=== PATIENT | male | born 1940 | race Caucasian/White ===

== ENCOUNTER 2016-11-26 20:06 | Emergency (ER) | payer BC, MEDICARE ==
[2016-11-26] MEDS ORDERED: Ketorolac 30 MG/ML SDV IVPUSH ONE (21:17)
[2016-11-26] MEDS ORDERED: Sodium Chloride 0.9% 1,000 ML IV ONE (21:17)
[2016-11-26 21:21] LABS: CHLORIDE,CL 110 mmol/L (98-110); SODIUM,NA 142 mmol/L (136-146)
--- NOTE | 2016-11-26 21:54 | EDM.PDOC ---
ED HPI GENERAL MEDICAL PROBLEM - General Source of Information: Reports: Patient History Limitations: Reports: No Limitations face Pain Score (Numeric/FACES): 4 - General Chief Complaint: Trauma Stated Complaint: FELL Time Seen by Provider: 11/26/16 20:10 - History of Present Illness INITIAL COMMENTS - FREE TEXT/NARRATIVE: History of present illness: [A 76-year-old male presenting with acute trauma. Patient had a mechanical fall and subsequently hit his face on the ground sliding] Review of systems: As per history of present illness and below otherwise all systems reviewed and negative. Past medical history: As per history of present illness and as reviewed below otherwise noncontributory. Surgical history: As per history of present illness and as reviewed below otherwise noncontributory. Social history: No reported history of drug or alcohol abuse. Family history: As per history of present illness and as reviewed below otherwise noncontributory. Physical exam: HEENT: normocephalic, pupils reactive, negative for conjunctival pallor or scleral icterus, mucous membranes moist, throat clear, neck supple, nontender, trachea midline. Lungs: Clear to auscultation, breath sounds equal bilaterally, chest nontender. Heart: S1S2, regular, negative for clicks, rubs, or JVD. Abdomen: Soft, nondistended, nontender. Negative for masses or hepatosplenomegaly. Negative for costovertebral tenderness. Pelvis: Stable nontender. Genitourinary: Deferred. Rectal: Deferred. Extremities: Atraumatic, negative for cords or calf pain. Neurovascular unremarkable. Neuro: Awake, alert, oriented. Cranial nerves II through XII unremarkable. Cerebellum unremarkable. Motor and sensory unremarkable throughout. Exam nonfocal. Face without bony deformity, EOMs intact. Skin torn under the left eye, in the left brow bone area ,and a skin tear to the left forearm. With the poor integrity of the skin and part of the integument missing applied Steri-Strips to approximate edges and Vaseline over any open areas. We'll refer to plastics Diagnostics: [CT of head, facial bones] Therapeutics: [Toradol 60 mg] Impression: [Multiple contusions] Plan: [Follow-up with Dr. Daen,] Definitive disposition and diagnosis as appropriate pending reevaluation and review of above. (Anselmo Mejia) This is Dr. Salas dictating an addendum note is the supervising physician on this case. I personally seen and examined this patient myself. Agree with history and physical as above and he states to me that he tripped over a cord falling forward only his own height. She did not pass out or blackout and has no head neck or back pain no neurosensory changes no weakness and no truncal trauma or pain. Prior to these events he was in his usual state of good health and was doing some work when this happened. On my facial examination may agree that there is no palpable bony deformities of the orbitmaxilla mandible zygoma and the bite is intact. EOMs are intact, visual acuity is grossly intact bilaterally her visual acuity card done by the nurse practitioner. There are multiple areas of skin injuries as described above. On his forearms hands and face that he has very fragile skin and he personally states that his skin tears and ribs very easily. There is no blood in the nares and no tooth trauma. There is no excessive amount of swelling to the soft tissues specifically around the left forehead left orbit and zygoma. The patient states that palpation of these bony areas there is no gross tenderness. There are no midline step-off surface defects of the cervical spine. CT scan of the head age-related changes but no acute injuries there was no gross fracture noted on the x-rays of the face. Advised the patient to follow-up with our plastics department for further care and evaluation and we have treated the wound symptomatically as for the repair of them with the fragility of the skin will be impossible. Patient is aware of our concerns and is comfortable with this care plan. Patient is currently taking no anticoagulation except a baby aspirin once a day. (Radha Salas) - Related Data Allergies Allergy/AdvReac Type Severity Reaction Status Date / Time No Known Allergies Allergy Verified 11/26/16 20:14 Home Meds: Home Meds Aspirin 81 mg PO DAILY 11/26/16 [History] Metoprolol Succinate 200 mg PO DAILY 11/26/16 [History] Past Medical History - Past Health History Medical/Surgical History: Denies Medical/Surgical History HEENT History: Reports: Impaired Vision Other HEENT History: wears glasses Cardiovascular History: Reports: Afib, Hypertension - Past Surgical History Musculoskeletal Surgical History: Reports: Hip Replacement Social & Family History - Family History Family Medical History: Noncontributory - Tobacco Use Smoking Status *Q: Never Smoker - Recreational Drug Use Recreational Drug Use: No Review of Systems - Review of Systems Review Of Systems: See Below (See history of present illness) ED EXAM, GENERAL - Physical Exam Exam: See Below (See history of present illness) Departure - Departure Time of Disposition: 22:52 Condition: Good - Departure Disposition: Home, Self-Care 01 Clinical Impression: Contusion of face - Discharge Information Instructions: Facial or Scalp Contusion, [id number] Referrals: PCP,None [Primary Care Provider] - Forms: ED Department Discharge Additional Instructions: The following information is given to patients seen in the emergency department who are being discharged to home. This information is to outline your options for follow-up care. We provide all patients seen in our emergency department with a follow-up referral. The need for follow-up, as well as the timing and circumstances, are variable depending upon the specifics of your emergency department visit. If you don't have a primary care physician on staff, we will provide you with a referral. We always advise you to contact your personal physician following an emergency department visit to inform them of the circumstance of the visit and for follow-up with them and/or the need for any referrals to a consulting specialist. The emergency department will also refer you to a specialist when appropriate. This referral assures that you have the opportunity for follow-up care with a specialist. All of these measure are taken in an effort to provide you with optimal care, which includes your follow-up. Under all circumstances we always encourage you to contact your private physician who remains a resource for coordinating your care. When calling for follow-up care, please make the office aware that this follow-up is from your recent emergency room visit. If for any reason you are refused follow-up, please contact the [facility] Emergency Department at and asked to speak to the emergency department charge nurse. Follow-up with the plastic surgeon as discussed Sleep with the head of your bed elevated if this requires you to use several pillows to prop herself up this would benefit you with the swelling in your face Follow-up with her primary care provider in 1-2 days Return to ED as needed as discussed [facility] - [facility] Professional [facility] [address] [place] [address], [address] [place] [address]
[2016-11-27 00:18] VITALS: BP 172/96
--- NOTE | 2016-11-28 13:13 | CT ---
EXAM DATE: 11/26/16 PATIENT'S AGE: 76 Patient: KATHARINA BRAR Facility: [place], [place] Site . Site : 1940 Study: CT Head WO CONT [id number] 9:41:45 PM Ordering Physician: Doctor Tian Final Report: Indication: Fall with laceration. Technique: Contiguous axial images were obtained from the skullbase through the vertex with 3 mm collimation. 3D rendering, including image post processing was performed on an independent workstation. Comparison: None. Findings: Soft tissue swelling with a small defect is noted overlying the left orbit. There is no underlying skull fracture. The ventricles are midline, symmetric, and are of normal size shape and contour. There is no intracranial hemorrhage. There is no mass on this unenhanced CT scan. Focal encephalomalacia of this noted in the right frontal lobe. There is preservation of the lowery/white matter junction and no masses identified on this unenhanced CT scan. Periventricular low-density white matter changes most likely reflecting chronic small vessel ischemic disease. Small air-fluid level is noted in the left maxillary sinus. The remaining visualized paranasal sinuses and mastoid air cells are normally aerated. Impression: 1. No acute intracranial abnormality. 2. Age related changes. Please note that all CT scans at this facility use dose modulation, iterative reconstruction, and/or weight-based dosing when appropriate to reduce radiation dose to as low as reasonably achievable. Dictated by Natalya Talamantes MD @ Nov 26 2016 9:46PM (Electronic Signature) Report Signed by Proxy. MIKHAIL
--- NOTE | 2016-11-28 13:16 | CR ---
EXAM DATE: 11/26/16 PATIENT'S AGE: 76 Patient: KATHARINA BRAR Facility: [place], [place] Site . Site : 1940 Study: XRay Facial [id number]/17/2017 10:00:09 PM Ordering Physician: Doctor Tian Final Report: Indication: Fall Technique: Four views of the facial bones Comparison: None available Findings: No gross displaced fracture identified. A small air-fluid level in the left maxillary sinus. The orbital rims appear grossly intact. No discrete soft tissue abnormality seen. Impression: A displaced fracture is not seen, however there is a left maxillary sinus air- fluid level. Correlation with facial bone CT should be considered for further evaluation. Dictated by Yuri Ross MD @ 11/26/2016 10:32:08 PM Dictated by: Yuri Ross MD @ 11/26/2016 22:32:15 (Electronic Signature) Report Signed by Proxy. MIKHAIL
== END 2016-11-26 23:15 | disposition home or self-care (01) ==
LOC: MW.ED 20:06
DX: S51.812A Laceration without foreign body of left forearm, initial encounter (principal); S00.83XA Contusion of other part of head, initial encounter; I48.91 Unspecified atrial fibrillation; I10 Essential (primary) hypertension; Z96.649 Presence of unspecified artificial hip joint; Z79.82 Long term (current) use of aspirin; W01.198A Fall on same level from slipping, tripping and stumbling with subsequent striking against other object, initial encounter
CPT/HCPCS: 36415; 70150; 70450; 80053; 85025; 85610; 96361; 96374; 99284; J1885; J7040

== ENCOUNTER 2016-11-28 14:16 | Emergency (ER) | payer MEDICARE ==
[2016-11-28] MEDS ORDERED: Proparacaine 0.5% Ophth Soln 15 ML Bottle EYELF ONE (15:25)
--- NOTE | 2016-11-28 16:05 | EDM.PDOC ---
<Anselmo Mejia - Last Filed: 11/28/16 17:55> ED HPI GENERAL MEDICAL PROBLEM - General Chief Complaint: Eye Problems Stated Complaint: PAIN ON LEFT SIDE OF FACE Time Seen by Provider: 11/28/16 15:55 Source of Information: Reports: Patient History Limitations: Reports: No Limitations - History of Present Illness INITIAL COMMENTS - FREE TEXT/NARRATIVE: History of present illness: [76 year old male returning now status post trip and fall. Patient was seen here by myself and treated and now returns subsequently with eye pain. Patient indicates it feels like there is pressure and something in his eye and he would like to be evaluated.] Review of systems: As per history of present illness and below otherwise all systems reviewed and negative. Past medical history: As per history of present illness and as reviewed below otherwise noncontributory. Surgical history: As per history of present illness and as reviewed below otherwise noncontributory. Social history: No reported history of drug or alcohol abuse. Family history: As per history of present illness and as reviewed below otherwise noncontributory. Physical exam: HEENT: Bruising and slow healing abrasion with skin tears to left side of face, normocephalic, pupils reactive, negative for conjunctival pallor or scleral icterus erythema and blood in, mucous membranes moist, throat clear, neck supple , nontender, trachea midline. Lungs: Clear to auscultation, breath sounds equal bilaterally, chest nontender. Heart: S1S2, regular, negative for clicks, rubs, or JVD. Abdomen: Soft, nondistended, nontender. Negative for masses or hepatosplenomegaly. Negative for costovertebral tenderness. Pelvis: Stable nontender. Genitourinary: Deferred. Rectal: Deferred. Extremities: Atraumatic, negative for cords or calf pain. Neurovascular unremarkable. Neuro: Awake, alert, oriented. Cranial nerves II through XII unremarkable. Cerebellum unremarkable. Motor and sensory unremarkable throughout. Exam nonfocal. Visual acuity performed with the results of 20/50 bilaterally which is consistent with the eye exam on the night of the incident. Ophthalmology called and consulted Dr. Flores who indicated with patients to stable vision it would be acceptable to have him seen first thing tomorrow have the patient come in at 0830 on 11/29/2016. Stable maxillary wall fracture with out exophthalmos and EOM's intact. Diagnostics: [Flourescene, Mendez lamp, CT of maxillofacial bones, visual acuity] Therapeutics: [Procainamide, ] Impression: [Sinusitis] Plan: [Anabiotic pain med] Definitive disposition and diagnosis as appropriate pending reevaluation and review of above. Left Eye Pain Score (Numeric/FACES): 4 - Related Data Allergies Allergy/AdvReac Type Severity Reaction Status Date / Time No Known Allergies Allergy Verified 11/28/16 14:57 Home Meds: Home Meds Aspirin 81 mg PO DAILY 11/26/16 [History] Metoprolol Succinate 200 mg PO DAILY 11/26/16 [History] Amoxicillin/Potassium Clav [Augmentin 875-125 Tablet] 1 each PO BID #20 tablet 11/28/16 [Rx] Past Medical History - Past Health History Medical/Surgical History: Denies Medical/Surgical History HEENT History: Reports: Impaired Vision Other HEENT History: wears glasses Cardiovascular History: Reports: Afib, Hypertension - Past Surgical History Musculoskeletal Surgical History: Reports: Hip Replacement Social & Family History - Family History Family Medical History: Noncontributory - Tobacco Use Smoking Status *Q: Never Smoker Second Hand Smoke Exposure: No - Caffeine Use Caffeine Use: Reports: None - Alcohol Use Days Per Week of Alcohol Use: 7 Number of Drinks Per Day: 2 Total Drinks Per Week: 14 - Recreational Drug Use Recreational Drug Use: No ED ROS GENERAL - Review of Systems Review Of Systems: See Below (History of present illness) ED EXAM GENERAL W FULL EYE - Physical Exam Exam: See Below (See history of present illness) Course - Vital Signs Last Recorded V/S: Last Vital Signs Temp 97.1 C H 11/28/16 14:51 Pulse 80 11/28/16 18:14 Resp 16 11/28/16 18:14 BP 173/106 H 11/28/16 18:14 Pulse Ox 98 11/28/16 18:14 - Orders/Labs/Meds Orders: Active Orders 24 hr Category Date Time Status Communication Order [RC] STAT Care 11/28/16 15:14 Active Max Facial Sinus wo Cont [CT] Stat Exams 11/28/16 16:17 Taken Meds: Medications Discontinued Medications Generic Name Dose Route Start Last Admin Trade Name Freq PRN Reason Stop Dose Admin Ketorolac Tromethamine 60 mg 11/28/16 16:30 11/28/16 17:40 Toradol IM 11/28/16 16:31 60 mg ONETIME ONE Administration Proparacaine HCl 1 ml 11/28/16 15:25 11/28/16 16:03 Proparacaine 0.5% Ana Solano EYELF 11/28/16 15:26 3 drop ONETIME ONE Administration Departure - Departure Time of Disposition: 17:55 Disposition: Home, Self-Care 01 Condition: Good Clinical Impression: Contusion of face, Pain, eye, left - Discharge Information Prescriptions: Amoxicillin/Potassium Clav [Augmentin 875-125 Tablet] 1 each PO BID #20 tablet Instructions: Eye Contusion, [id number] Referrals: PCP,Unknown [Primary Care Provider] - Forms: ED Department Discharge Additional Instructions: The following information is given to patients seen in the emergency department who are being discharged to home. This information is to outline your options for follow-up care. We provide all patients seen in our emergency department with a follow-up referral. The need for follow-up, as well as the timing and circumstances, are variable depending upon the specifics of your emergency department visit. If you don't have a primary care physician on staff, we will provide you with a referral. We always advise you to contact your personal physician following an emergency department visit to inform them of the circumstance of the visit and for follow-up with them and/or the need for any referrals to a consulting specialist. The emergency department will also refer you to a specialist when appropriate. This referral assures that you have the opportunity for follow-up care with a specialist. All of these measure are taken in an effort to provide you with optimal care, which includes your follow-up. Under all circumstances we always encourage you to contact your private physician who remains a resource for coordinating your care. When calling for follow-up care, please make the office aware that this follow-up is from your recent emergency room visit. If for any reason you are refused follow-up, please contact the [facility] Emergency Department at and asked to speak to the emergency department charge nurse. You have a follow-up appointment with up with ophthalmology tomorrow morning at 8:30 it is at the building their phone number is [phone] You also have a follow-up with Dr. Dean as previously discussed Please take the antibiotics as directed You have been provided with pain med please take as directed Return to ED as needed as discussed - My Orders Last 24 Hours: My Active Orders 11/28/16 15:14 Communication Order [RC] STAT - Assessment/Plan Last 24 Hours: My Active Orders 11/28/16 15:14 Communication Order [RC] STAT <Radha Salas Ame - Last Filed: 11/28/16 18:34> ED HPI GENERAL MEDICAL PROBLEM - History of Present Illness INITIAL COMMENTS - FREE TEXT/NARRATIVE: Please note that on fluoroscopy seen stain in his practitioner just saw diffuse uptake but no focal area and no foreign body. There was some much scleral injection the exam was difficult and the electric installer was aware of this. He will see the patient tomorrow. The patient has a scheduled appointment with plastic surgery this morning. Please add to impression: History of blunt facial trauma with left maxillary fracture and sinusitis/left eye pain
[2016-11-28] MEDS ORDERED: Ketorolac 60 MG/2 ML SDV IM ONE (16:30)
[2016-11-28 18:15] VITALS: BP 173/106
--- NOTE | 2016-11-29 07:50 | CT ---
EXAM DATE: 11/28/16 PATIENT'S AGE: 76 Patient: KATHARINA BRAR Facility: [place], [place] Site . Site : 1940 Study: CT Facial [id number]/2017 5:03:33 PM Ordering Physician: Doctor Tian Final Report: INDICATION: trauma Technique: Unenhanced maxillofacial CT with reformatted coronals and sagittal images. Comparison: Head CT 11/28/2016 Findings: The bone mineralization is unremarkable. Subtle left posterolateral maxillary wall fracture with resolved air-fluid level and adjacent subcutaneous emphysema when compared to previous examination. Persistent left supraorbital soft tissue hematoma/laceration. The paranasal sinuses and mastoid air cells are clear. The osteomeatal units are patent. The temporomandibular joints are unremarkable bilaterally. The globes and orbits are unremarkable. The imaged soft tissues and intracranial contents are grossly unremarkable. Impression: Subtle left posterolateral maxillary wall fracture with resolved air-fluid level and adjacent subcutaneous emphysema when compared to previous examination. Persistent left supraorbital soft tissue hematoma/laceration.. Dictated by: Ezequiel España MD @ 11/28/2016 17:39:55 (Electronic Signature) Report Signed by Proxy. MIKHAIL
== END 2016-11-28 18:10 | disposition home or self-care (01) ==
LOC: MW.ED 14:16
DX: S02.40DA Maxillary fracture, left side, initial encounter for closed fracture (principal); S00.83XA Contusion of other part of head, initial encounter; H57.12 Ocular pain, left eye; J32.9 Chronic sinusitis, unspecified; I10 Essential (primary) hypertension; I48.91 Unspecified atrial fibrillation; Z96.649 Presence of unspecified artificial hip joint; Z79.82 Long term (current) use of aspirin; Z79.899 Other long term (current) drug therapy; W01.0XXA Fall on same level from slipping, tripping and stumbling without subsequent striking against object, initial encounter
CPT/HCPCS: 70486; 96372; 99284; J1885

== ENCOUNTER 2017-07-11 13:43 | Observation (INO) | payer MEDICARE ==
--- NOTE | 2017-07-11 14:07 | EDM.PDOC ---
ED HPI GENERAL MEDICAL PROBLEM - General Chief Complaint: Respiratory Problem Stated Complaint: SHAKING Time Seen by Provider: 07/11/17 14:05 Source of Information: Reports: Patient, Family History Limitations: Reports: No Limitations - History of Present Illness INITIAL COMMENTS - FREE TEXT/NARRATIVE: HISTORY AND PHYSICAL: []76-year-old male presenting with chills shaking for the last 2 hours History of Present Illness: []Notable his girlfriend last week had the flu Patient has history of having bypass surgery Atrial fibrillation Fall with injury to his forehead 1 year ago Review of Systems: As per history of present illness and below otherwise all systems reviewed and negative. Past medical history: As per history of present illness and as reviewed below otherwise noncontributory. Surgical history: As per history of present illness and as reviewed below otherwise noncontributory. Social history: No reported history of drug or alcohol abuse. Family history: As per history of present illness and as reviewed below otherwise noncontributory. Physical exam: Alert and oriented male who looks appropriate. Speaking in full sentences no shortness breath noted. Mild tremors present HEENT: Atraumatic, normocehpalic, pupils reactive, negative for conjunctival pallor or scleral icterus, mucous membranes moist, throat clear, neck supple, nontender, trachea midline. Lungs: Clear to auscultation, breath sounds equal bilaterally, chest non tender. Heart: S1S2, regular, negative for clicks, rubs, or JVD. Abdomen: Soft, nondistended, nontender. Negative for masses or hepatossplenmegaly. Negative for costovertebral tenderness. Pelvis: Stable nontender. Genitourinary: Deferred. Rectal: Deferred Extremities: Atraumatic, negative for cords or calf pain. Hand grasp grossly intact ,no drift is noted Neurovascular unremarkable. Neuro: Awake, alert, oriented. Cranial nerves II through XII unremarkable. Cerebellum unremarkable. Motor and sensory unremarkable throughout. Exam nonfocal. After discussion of negative results from labs and x-rays son has discussed some concern that the patient has been losing his memory more often He has complained of having a headache this morning when he was being picked up. Patient had significant weakness and tremors where he could not walk Patient has been weak. Diagnostics: []CBC CMP influenza Therapeutics: [] Impression: [Rule out TIA Tremors Weakness] Plan: [Refer for observation on telemetry] Definitive disposition and diagnosis as appropriate pending reevaluation and review of above. Onset: Today, Sudden Duration: Hour(s): (2) Location: Reports: Generalized Quality: Reports: Ache Severity: Moderate Improves with: Reports: None Worsens with: Reports: None Generalized Pain Score (Numeric/FACES): 6 - Related Data Allergies Allergy/AdvReac Type Severity Reaction Status Date / Time No Known Allergies Allergy Verified 11/28/16 14:57 Home Meds: Home Meds Aspirin 81 mg PO DAILY 11/26/16 [History] Metoprolol Succinate 200 mg PO DAILY 11/26/16 [History] Amoxicillin/Potassium Clav [Augmentin 875-125 Tablet] 1 each PO BID #20 tablet 11/28/16 [Rx] Past Medical History - Past Health History Medical/Surgical History: Denies Medical/Surgical History HEENT History: Reports: Impaired Vision Other HEENT History: wears glasses Cardiovascular History: Reports: Afib, Hypertension - Past Surgical History Musculoskeletal Surgical History: Reports: Hip Replacement Social & Family History - Family History Family Medical History: Noncontributory - Tobacco Use Smoking Status *Q: Never Smoker Second Hand Smoke Exposure: No - Caffeine Use Caffeine Use: Reports: None - Alcohol Use Days Per Week of Alcohol Use: 7 Number of Drinks Per Day: 2 Total Drinks Per Week: 14 - Recreational Drug Use Recreational Drug Use: No ED ROS GENERAL - Review of Systems Review Of Systems: ROS reveals no pertinent complaints other than HPI. ED EXAM, GENERAL - Physical Exam Exam: See Below (see dictation) Course - Vital Signs Last Recorded V/S: Last Vital Signs Temp 37.8 C 07/11/17 14:04 Pulse 98 07/11/17 15:06 Resp 20 07/11/17 15:06 BP 152/72 H 07/11/17 15:06 Pulse Ox 95 07/11/17 15:42 - Orders/Labs/Meds Orders: Active Orders 24 hr Category Date Time Status Patient Status [ADT] Stat ADT 07/11/17 16:04 Ordered Sodium Chloride 0.9% [Saline Flush] Med 07/11/17 16:03 Ordered 10 ml FLUSH ASDIRECTED PRN Sodium Chloride 0.9% [Saline Flush] Med 07/11/17 16:03 Ordered 2.5 ml FLUSH ASDIRECTED PRN Saline Lock Insert [OM.PC] Stat Oth 07/11/17 16:03 Ordered Medication Orders Sodium Chloride (Saline Flush) 10 ml FLUSH ASDIRECTED PRN PRN Reason: Keep Vein Open Sodium Chloride (Saline Flush) 2.5 ml FLUSH ASDIRECTED PRN PRN Reason: Keep Vein Open Labs: Laboratory Tests 07/11/17 07/11/17 Range/Units 14:16 14:16 WBC 9.45 (4.0-11.0) K/uL RBC 4.13 L (4.50-5.90) M/uL Hgb 13.0 (13.0-17.0) g/dL Hct 39.1 (38.0-50.0) % MCV 94.7 (80.0-98.0) fL MCH 31.5 (27.0-32.0) pg MCHC 33.2 (31.0-37.0) g/dL RDW Std Deviation 48.5 (28.0-62.0) fl RDW Coeff of [place] 14 (11.0-15.0) % Plt Count 321 (150-400) K/uL MPV 8.90 (7.40-12.00) fL Neut % (Auto) 93.9 H (48.0-80.0) % Lymph % (Auto) 3.7 L (16.0-40.0) % [place] % (Auto) 1.7 (0.0-15.0) % Eos % (Auto) 0.5 (0.0-7.0) % Baso % (Auto) 0.2 (0.0-1.5) % Neut # (Auto) 8.9 H (1.4-5.7) K/uL Lymph # (Auto) 0.4 L (0.6-2.4) K/uL [place] # (Auto) 0.2 (0.0-0.8) K/uL Eos # (Auto) 0.1 (0.0-0.7) K/uL Baso # (Auto) 0.0 (0.0-0.1) K/uL Nucleated RBC % 0.0 /100WBC Nucleated RBCs # 0 K/uL Sodium 142 (136-146) mmol/L Potassium 4.9 (3.5-5.1) mmol/L Chloride 108 (98-110) mmol/L Carbon Dioxide 22 (21-31) mmol/L BUN 20 (6.0-23.0) mg/dL Creatinine 1.0 (0.6-1.5) mg/dL Est Cr Clr Drug Dosing TNP Estimated GFR (MDRD) > 60.0 ml/min Glucose 123 H (60-110) mg/dL Calcium 9.2 (8.8-10.8) mg/dL Total Bilirubin 0.5 (0.1-1.5) mg/dL AST 17 (5-40) IU/L ALT 15 (8-54) IU/L Alkaline Phosphatase 92 (40-150) Total Protein 7.5 (6.0-8.0) g/dL Albumin 3.7 (3.4-4.8) g/dL Globulin 3.8 H (2.0-3.5) g/dL Albumin/Globulin Ratio 1.0 L (1.3-2.8) Meds: Medications Generic Name Dose Route Start Last Admin Trade Name Freq PRN Reason Stop Dose Admin Sodium Chloride 10 ml 07/11/17 16:03 Saline Flush FLUSH ASDIRECTED PRN Keep Vein Open Sodium Chloride 2.5 ml 07/11/17 16:03 Saline Flush FLUSH ASDIRECTED PRN Keep Vein Open Departure - Departure Time of Disposition: 16:07 Disposition: Refer to Observation Condition: Fair Clinical Impression: Tremors of nervous system, Weakness - Discharge Information Referrals: PCP,None [Primary Care Provider] - Forms: ED Department Discharge - My Orders Last 24 Hours: My Active Orders 07/11/17 16:03 Sodium Chloride 0.9% [Saline Flush] 10 ml FLUSH ASDIRECTED PRN Sodium Chloride 0.9% [Saline Flush] 2.5 ml FLUSH ASDIRECTED PRN Saline Lock Insert [OM.PC] Stat 07/11/17 16:04 Patient Status [ADT] Stat - Assessment/Plan Last 24 Hours: My Active Orders 07/11/17 16:03 Sodium Chloride 0.9% [Saline Flush] 10 ml FLUSH ASDIRECTED PRN Sodium Chloride 0.9% [Saline Flush] 2.5 ml FLUSH ASDIRECTED PRN Saline Lock Insert [OM.PC] Stat 07/11/17 16:04 Patient Status [ADT] Stat
[2017-07-11 14:51] LABS: CHLORIDE,CL 108 mmol/L (98-110); SODIUM,NA 142 mmol/L (136-146)
--- NOTE | 2017-07-11 15:45 | CT ---
CT brain scan without contrast Clinical history: Severe headache for 4 hours Comparison: Prior CT scan November 28, 2016. Findings: Comparison is made to maxillofacial CT scan November 28, 2016 which included the lower portion of the brain There is now a well-defined area of encephalomalacia in the right frontal region just above the orbit consistent with the result of old injury. Reviewing the prior CT scan there appears to been more acu te edema in this region on the prior examination of November 28, 2016 There is no acute mass edema or hemorrhage at this time. Brain is mildly senescent in its character c onsistent with patient's age with some vague low attenuation throughout the white matter that probabl y reflect small vessel microvascular ischemic changes of aging. Bone window images demonstrate no acu te calvarial injury at this time and the visualized portions of the paranasal sinuses and mastoids ar e normal. Impression: No acute intracranial pathology. 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
--- NOTE | 2017-07-11 15:46 | CR ---
PA and lateral chest Clinical history: Pain and shortness of breath Pericecal: Prior chest x-ray September 05, 2011 Findings: As been prior mediastinal surgery for bypass. 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 There is no acute infiltrate failure or volume loss at thi s time. Old rib fractures are noted on the left. Impression: Prior cardiac surgery with no acute cardiopulmonary disease identified at this time
[2017-07-11] MEDS ORDERED: Sodium Chloride 0.9% 10 ML Syringe FLUSH PRN (16:03)
[2017-07-11] MEDS ORDERED: Sodium Chloride 0.9% 2.5 ML Syringe FLUSH PRN (16:03)
--- NOTE | 2017-07-11 19:45 | PCM.HP ---
H&P History of Present Illness - General Admit Problem/Dx: Admission Diagnosis/Problem Admission Diagnosis/Problem Weakness - History of Present Illness Initial Comments - Free Text/Narative: 76 yo male who presented with shakes. He reported that while working on his computer he felt cold. His arms and legs began shaking. He put more cloths on due to the chills. The shakes lasted about four hours. He is feeling fine now. He denies any numbness, weakness, shortness of breath, cough, dysuria, or diarrhea. He was on augmentin recently for Sinus infection. CT scan performed in ED reported no acute patholgy. He does have evolution of old injury from fall with encephalomalacia above right orbit. He has a history of atrial fibrillation. He had been on eliquis but had rectal bleeding requring large volume transfusion. He has had a Lariat procedure and is taking aspirin. Generalized Pain Score (Numeric/FACES): 6 - Related Data Allergies/Adverse Reactions: Allergies Allergy/AdvReac Type Severity Reaction Status Date / Time No Known Allergies Allergy Verified 11/28/16 14:57 Home Medications: Home Meds Aspirin 81 mg PO DAILY 11/26/16 [History] Metoprolol Succinate 200 mg PO DAILY 11/26/16 [History] Amoxicillin/Potassium Clav [Augmentin 875-125 Tablet] 1 each PO BID #20 tablet 11/28/16 [Rx] Past Medical History - Past Health History Medical/Surgical History: Denies Medical/Surgical History HEENT History: Reports: Impaired Vision, Other (See Below) Other HEENT History: tinnitus; wears glasses Cardiovascular History: Reports: Afib, Hypertension Gastrointestinal History: Reports: Other (See Below) Other Gastrointestinal History: Gifford's esophagus Musculoskeletal History: Reports: Arthritis, Fracture Neurological History: Reports: Concussion Psychiatric History: Reports: Depression Hematologic History: Reports: Blood Transfusion(s) - Past Surgical History HEENT Surgical History: Reports: Cataract Surgery, Other (See Below) Other HEENT Surgeries/Procedures: cataract surgery April 2017 Cardiovascular Surgical History: Reports: Other (See Below) Other Cardiovascular Surgeries/Procedures: Lariat procedure 2012 GI Surgical History: Reports: Colonoscopy, EGD Neurological Surgical History: Reports: None Musculoskeletal Surgical History: Reports: Hip Replacement, Other (See Below) Other Musculoskeletal Surgeries/Procedures:: hip replacement x 3 to left hip Social & Family History - Family History Family Medical History: Noncontributory - Tobacco Use Smoking Status *Q: Former Smoker Used Tobacco, but Quit: Yes Month Tobacco Last Used: 0 Tobacco Use Comment: Patient quit smoking 20 years ago Second Hand Smoke Exposure: No - Caffeine Use Caffeine Use: Reports: Coffee - Alcohol Use Days Per Week of Alcohol Use: 7 Number of Drinks Per Day: 2 Total Drinks Per Week: 14 Date of Last Drink: 07/10/17 - Recreational Drug Use Recreational Drug Use: No H&P Review of Systems - Review of Systems: Review Of Systems: ROS reveals no pertinent complaints other than HPI. Exam - Exam Exam: See Below - Vital Signs Vital Signs: Last Vital Signs Temp 36.9 C 07/11/17 16:52 Pulse 111 H 07/11/17 16:52 Resp 18 07/11/17 16:52 BP 141/72 H 07/11/17 16:52 Pulse Ox 95 07/11/17 16:52 Weight: 112.5 kg - Exam General: Alert, Oriented HEENT: Mucosa Moist & [place] Lungs: Clear to Auscultation, Normal Respiratory Effort Cardiovascular: Regular Rate, Regular Rhythm GI/Abdominal Exam: Soft, Non-Tender Extremities: Non-Tender, No Pedal Edema Skin: Warm, Dry, Intact Neurological: Cranial Nerves Intact, Strength Equal Bilateral, Normal Speech, Normal Tone, Sensation Intact. No: Focal Deficit - Patient Data Result Diagrams: 07/11/17 14:16 07/11/17 14:16 *Q Meaningful Use (ADM) - VTE *Q VTE Criteria *Q: - Stroke *Q Stroke Criteria *Q: - AMI *Q AMI Criteria *Q: Problem List Initiated/Reviewed/Updated: Yes Orders Last 24hrs: Active Orders 24 hr Category Date Time Status Brain w wo Cont [MR] Routine Exams 07/11/17 19:39 Ordered UA W/MICROSCOPIC [URIN] Routine Lab 07/11/17 19:38 Uncollected Aspirin Med 07/12/17 09:00 Ordered 81 mg PO DAILY Metoprolol Succinate [Metoprolol Succinate] Med 07/12/17 09:00 Ordered 200 mg PO DAILY Medication Orders Aspirin (Aspirin) 81 mg PO DAILY MATTHEW Non-Formulary Medication (Metoprolol Succinate [Metoprolol Succinate]) 200 mg PO DAILY MATTHEW Sodium Chloride (Saline Flush) 10 ml FLUSH ASDIRECTED PRN PRN Reason: Keep Vein Open Sodium Chloride (Saline Flush) 2.5 ml FLUSH ASDIRECTED PRN PRN Reason: Keep Vein Open Assessment/Plan Comment:: 76 yo male presenting with tremors and chills. According to history sound like rigors but ED provider who witness some of his tremors and patient is concerned about stroke. Patient does not look septic and is neuro intact. Will monitor on telemetry and obtain a brain MRI. Influenza screen is negative. Will check UA. Will continue his metoprolol and ASA.
[2017-07-12] MEDS ORDERED: Aspirin 81 MG Tab.Chew PO SCH (09:00)
[2017-07-12] MEDS ORDERED: Metoprolol Succinate 100 MG Tab.ER PO SCH (09:00)
--- NOTE | 2017-07-12 14:48 | PCM.PN ---
<Krunal Kurtz - Last Filed: 07/12/17 14:43> - General Info Date of Service: 07/12/17 Subjective Update: Patient this morning states that he feels a lot better. The symptoms that he was having including feeling hot and cold, tremors and his concern for stroke has subsided. He is scheduled for an MRI later on today. No events on telemetry. He denies any numbness or tingling, chest pain, palpitations. Denies nausea or vomiting. Denies subjective fevers. Functional Status: Reports: Pain Controlled - Review of Systems General: Reports: Other (See history of present illness) - Patient Data Vitals - Most Recent: Last Vital Signs Temp 36.7 C 07/12/17 08:00 Pulse 84 07/12/17 08:23 Resp 20 07/12/17 08:00 BP 152/72 H 07/12/17 08:23 Pulse Ox 91 L 07/12/17 08:00 Weight - Most Recent: 112.5 kg I&O - Last 24 Hours: Intake & Output 07/11/17 07/12/17 07/12/17 22:59 06:59 14:59 Intake Total 700 Output Total 200 Balance 500 Lab Results Last 24 Hours: Laboratory Results - last 24 hr 07/12/17 Range/Units 04:10 Urine Color YELLOW Urine Appearance CLEAR Urine pH 6.5 (5.0-8.0) Ur Specific [place] 1.020 (1.001-1.035) Urine Protein NEGATIVE (NEGATIVE) mg/dL Urine Glucose (UA) NEGATIVE (NEGATIVE) mg/dL Urine Ketones NEGATIVE (NEGATIVE) mg/dL Urine Occult Blood NEGATIVE (NEGATIVE) Urine Nitrite NEGATIVE (NEGATIVE) Urine Bilirubin NEGATIVE (NEGATIVE) Urine Urobilinogen >=8.0 H (<2.0) EU/dL Ur Leukocyte Esterase NEGATIVE (NEGATIVE) Urine RBC 0-1 (0-2/HPF) Urine WBC 0-2 (0-5/HPF) Ur Epithelial Cells RARE (NONE-FEW) Urine Bacteria FEW (NEGATIVE) Med Orders - Current: Current Medications Aspirin (Aspirin) 81 mg PO DAILY [facility] Last Admin: 07/12/17 08:24 Dose: 81 mg Metoprolol Succinate (Toprol Xl) 200 mg PO DAILY [facility] Last Admin: 07/12/17 08:23 Dose: 200 mg Sodium Chloride (Saline Flush) 10 ml FLUSH ASDIRECTED PRN PRN Reason: Keep Vein Open Sodium Chloride (Saline Flush) 2.5 ml FLUSH ASDIRECTED PRN PRN Reason: Keep Vein Open - Exam General: Alert, Oriented Neck: Supple Lungs: Clear to Auscultation, Normal Respiratory Effort Cardiovascular: Regular Rate, Regular Rhythm GI/Abdominal Exam: Normal Bowel Sounds, Soft Extremities: No Pedal Edema Peripheral Pulses: 2+: Posterior Tibial (L), Posterior Tibial (R) Skin: Warm Neurological: No New Focal Deficit, Normal Speech, Normal Tone, Strength Equal Bilateral, Reflexes Equal Bilateral, Sensation Intact, Cranial Nerves Intact Psy/Mental Status: Alert, Normal Affect, Normal Mood - Problem List Review Problem List Initiated/Reviewed/Updated: Yes - Plan Plan:: 76 yo male presenting with tremors and chills. According to history sound like rigors but ED provider who witness some of his tremors and patient is concerned about stroke. Patient does not look septic and is neuro intact. Will monitor on telemetry and obtain a brain MRI. Influenza screen is negative. Will check UA. Will continue his metoprolol and ASA. Assessment: #1. Tremor, chills-resolved #2. History of hypertension Plan: #1. Follow-up on brain MRI #2. Cardiac telemetry #3. Continue home meds #4. Discharge home if the MRI is unremarkable. <Manuel Gray - Last Filed: 07/14/17 11:13> - Patient Data Vitals - Most Recent: Last Vital Signs Temp 36.4 C 07/12/17 20:00 Pulse 82 07/12/17 20:00 Resp 19 07/12/17 20:00 BP 160/90 H 07/12/17 20:00 Pulse Ox 94 L 07/12/17 20:00 Med Orders - Current: Current Medications Discontinued Medications Aspirin (Aspirin) 81 mg PO DAILY [facility] Last Admin: 07/12/17 08:24 Dose: 81 mg Gadobenate Dimeglumine (Multihance) 20 ml IVPUSH ONETIME STA Stop: 07/12/17 15:37 Last Admin: 07/12/17 15:37 Dose: 20 ml Metoprolol Succinate (Toprol Xl) 200 mg PO DAILY [facility] Last Admin: 07/12/17 08:23 Dose: 200 mg Sodium Chloride (Saline Flush) 10 ml FLUSH ASDIRECTED PRN PRN Reason: Keep Vein Open Sodium Chloride (Saline Flush) 2.5 ml FLUSH ASDIRECTED PRN PRN Reason: Keep Vein Open - Free Text/Narrative Note: I have examined the patient. I have discussed findings and treatment plan with resident. I agree with the assessment and plan outlined in the following resident's note.
[2017-07-12] MEDS ORDERED: Gadobenate Dimeglumine 529 MG/ML 20 ML SDV IVPUSH STA (15:36)
[2017-07-12 20:45] VITALS: BP 160/90
--- NOTE | 2017-07-13 09:33 | MR ---
EXAM DATE: 07/11/17 PATIENT'S AGE: 76 Patient: KATHARINA BRAR Facility: [place], [place] Site . Site : [id number] Study: MRI Head W/ and W/O Cont [id number] 7:21:38 PM Ordering Physician: Marina Jackson Final Report: INDICATION: Tremors. COMPARISON: CT 07/11/2017. TECHNIQUE: Multiplanar T1, T2, FLAIR and diffusion-weighted imaging. Post gadolinium T1 sequences. FINDINGS: Normal brain parenchymal morphology. Focal encephalomalacia and gliosis of the anterior inferior right frontal lobe and anterior right temporal lobe consistent with old trauma and contusions. Patchy T2/FLAIR signal hyperintensity within the white matter consistent with chronic small vessel ischemic changes. No acute intracranial hemorrhage. No abnormal ventricular dilatation. Intracranial vascular flow voids are preserved. No mass or mass effect. No midline shift. No restricted diffusion to suggest acute ischemia. No susceptibility artifact to suggest hemosiderin of remote hemorrhage. No abnormal enhancement or enhancing lesions. Bilateral orbits are unremarkable. Normal appearing sella. Visualized paranasal sinuses and mastoid air cells are unremarkable. IMPRESSION: 1. No acute intracranial abnormality. 2. Normal brain parenchymal pathology. Focal encephalomalacia and gliosis of the anterior inferior right frontal lobe and anterior right upper lobe consistent with old trauma or contusions. 3. Chronic deep white matter small vessel ischemic changes 4. No abnormal enhancement or enhancing lesions Dictated by Darion Licona MD @ Jul 12 2017 7:51PM (Electronic Signature) Report Signed by Proxy. [facility]
--- NOTE | 2017-07-13 13:12 | PCM.DCSUM1 ---
Discharge Summary - Hospital Course Free Text/Narrative:: admission date: July 11, 2017 Discharge date: July 12, 2017 Admission diagnosis: #1. Tremors and chills #2. Stroke rule out Discharge diagnoses: #1. Symptoms resolved with MRI unremarkable Hospital course: This is a 76-year-old male that was admitted for observation after presenting with tremors and chills and concerns from the emergency department of possible stroke. Physical examination done by the hospitalist indicated no focal deficits, and no significant neurological findings. Given the subjective tremor, an MRI was ordered which was unremarkable. The patient was also considered high risk given his history of a.fib. The next day when evaluated in the morning, the patient reported that his tremors and chills had improved. At the time of discharge, he denied and numbness/weakness/dizziness/ confusion. vital signs were stable. he is to f/u with his pcp. - Discharge Data Discharge Date: 07/12/17 Discharge Disposition: Home, Self-Care 01 Condition: Good - Discharge Plan Home Medications: Home Meds Aspirin 81 mg PO DAILY 11/26/16 [History] Metoprolol Succinate 200 mg PO DAILY 11/26/16 [History] Amoxicillin/Potassium Clav [Augmentin 875-125 Tablet] 1 each PO BID #20 tablet 11/28/16 [Rx] Patient Handouts: Tremor Referrals: PCP,None [Primary Care Provider] - (Please follow-up with your primary care doctor in one week. ) - Discharge Summary/Plan Comment Discharge Summary/Plan Comment: admission date: July 11, 2017 Discharge date: July 12, 2017 Admission diagnosis: #1. Tremors and chills #2. Stroke rule out Discharge diagnoses: #1. Symptoms resolved with MRI unremarkable Hospital course: This is a 76-year-old male that was admitted for observation after presenting with tremors and chills and concerns from the emergency department of possible stroke. Physical examination done by the hospitalist indicated no focal deficits, and no significant neurological findings. Given the subjective tremor, an MRI was ordered which was unremarkable. The patient was also considered high risk given his history of a.fib. The next day when evaluated in the morning, the patient reported that his tremors and chills had improved. At the time of discharge, he denied and numbness/weakness/dizziness/ confusion. vital signs were stable. he is to f/u with his pcp. - Patient Data Vitals - Most Recent: Last Vital Signs Temp 36.4 C 07/12/17 20:00 Pulse 82 07/12/17 20:00 Resp 19 07/12/17 20:00 BP 160/90 H 07/12/17 20:00 Pulse Ox 94 L 07/12/17 20:00 Weight - Most Recent: 112.5 kg I&O - Last 24 hours: Intake & Output 07/12/17 07/13/17 07/13/17 22:59 06:59 14:59 Intake Total 820 Balance 820 Med Orders - Current: Current Medications Discontinued Medications Aspirin (Aspirin) 81 mg PO DAILY [facility] Last Admin: 07/12/17 08:24 Dose: 81 mg Gadobenate Dimeglumine (Multihance) 20 ml IVPUSH ONETIME STA Stop: 07/12/17 15:37 Last Admin: 07/12/17 15:37 Dose: 20 ml Metoprolol Succinate (Toprol Xl) 200 mg PO DAILY [facility] Last Admin: 07/12/17 08:23 Dose: 200 mg Sodium Chloride (Saline Flush) 10 ml FLUSH ASDIRECTED PRN PRN Reason: Keep Vein Open Sodium Chloride (Saline Flush) 2.5 ml FLUSH ASDIRECTED PRN PRN Reason: Keep Vein Open *Q Meaningful Use (DIS) - VTE *Q VTE Criteria *Q: - Stroke *Q Stroke Criteria *Q: - AMI *Q AMI Criteria *Q:
== END 2017-07-12 21:30 | disposition home or self-care (01) ==
LOC: MW.ED 13:43 → MW.MS 16:04 → MW.ED 16:58
PROVIDERS: ADMIT Internal Medicine; ATTEND Internal Medicine
DX: R25.1 Tremor, unspecified (principal); R68.83 Chills (without fever); I48.91 Unspecified atrial fibrillation; I10 Essential (primary) hypertension; M19.90 Unspecified osteoarthritis, unspecified site; F32.9 Major depressive disorder, single episode, unspecified; Z98.890 Other specified postprocedural states; Z79.82 Long term (current) use of aspirin; Z79.899 Other long term (current) drug therapy; Z96.642 Presence of left artificial hip joint; Z87.891 Personal history of nicotine dependence
CPT/HCPCS: 36415; 70450; 70553; 71046; 80053; 81001; 85025; 87804; 99285; A9270; A9577; G0378; 99284

== ENCOUNTER 2017-07-31 17:04 | Emergency (ER) | payer MEDICARE ==
[2017-07-31] MEDS ORDERED: Sodium Chloride 0.9% 10 ML Syringe FLUSH PRN (17:33)
[2017-07-31] MEDS ORDERED: Sodium Chloride 0.9% 2.5 ML Syringe FLUSH PRN (17:33)
--- NOTE | 2017-07-31 17:40 | EDM.PDOC ---
ED HPI GENERAL MEDICAL PROBLEM - General Chief Complaint: Gastrointestinal Problem Stated Complaint: PT BLEEDING FROM RECTUM Time Seen by Provider: 07/31/17 17:08 Source of Information: Reports: Patient History Limitations: Reports: No Limitations - History of Present Illness INITIAL COMMENTS - FREE TEXT/NARRATIVE: HISTORY AND PHYSICAL: History of present illness: Patient is a 76-year-old male who presents to the emergency room today with complaints of bloody stools. He states he woke up this morning to use the restroom and noted that he had blood mixed in his stools. He has had some low pelvic pain which is tender with palpation. He proceeded with his day and by her this afternoon. Patient went home and had another bowel movement and again was mixed with blood. He states he had a similar episode of bloody stools approximately 4 years ago in [facility]. At that time he was admitted for several days and received 28 units of blood. Does state he has lightheadedness with change of positioning and slight shortness of breath. Denies any change in vision, chest pain, nausea, vomiting or diarrhea. Review of systems: As per history of present illness and below otherwise all systems reviewed and negative. Past medical history: As per history of present illness and as reviewed below otherwise noncontributory. Surgical history: As per history of present illness and as reviewed below otherwise noncontributory. Social history: No reported history of drug or alcohol abuse. Family history: As per history of present illness and as reviewed below otherwise noncontributory. Physical exam: General: Well-developed and well-nourished 76 year old male. Alert and oriented. Appears in no acute distress. HEENT: Atraumatic, normocephalic, pupils reactive, negative for conjunctival pallor or scleral icterus, mucous membranes moist, throat clear, neck supple, nontender, trachea midline. Lungs: Clear to auscultation, breath sounds equal bilaterally, chest nontender. Heart: S1S2, regular, negative for clicks, rubs, or JVD. Abdomen: Soft, nondistended, nontender. Negative for masses or hepatosplenomegaly. Negative for costovertebral tenderness. Pelvis: Stable nontender. Genitourinary: Deferred. Rectal: This is done with a die inspector at the bedside. Hemoccult is positive. Extremities: Atraumatic, negative for cords or calf pain. Neurovascular unremarkable. Skin: Intact, warm, dry. Appears pale. Neuro: Awake, alert, oriented. Cranial nerves II through XII unremarkable. Cerebellum unremarkable. Motor and sensory unremarkable throughout. Exam nonfocal. Hemoglobin is 10 (11.9 from today's earlier draw). +Hemocult. CT shows perforated sigmoid diverticulitis with an adjacent irregular collection of gas and a soft tissue density suggestive of pericolonic abscesses, although a perforated primary colonic neoplasm is not excluded. Suspected cholelithiasis with small gas within the gallbladder lumen. Biliary dilatation with apparent ill-defined densities in the CBD, and choledocholithiasis is not excluded. This information was shared with Dr. Zambrano, the general surgeon on-call. She has agreed to come and see the patient in the emergency room. Dr. Zambrano here to see patient. Patient will be transfered to [facility] in [place] for higher level of care. Diagnostics: CBC, CMP, CT abd/pelvis, UA Therapeutics: IV Fluid Impression: 1. Abdominal Pain 2. Rectal Bleeding 3. Perforated sigmoid colon 4. Bile Duct Abnormality Plan: Transfer to [place] [facility] Definitive disposition and diagnosis as appropriate pending reevaluation and review of above. Onset: Today Duration: Hour(s): Location: Reports: Abdomen abdomen Pain Score (Numeric/FACES): 2 - Related Data Allergies Allergy/AdvReac Type Severity Reaction Status Date / Time No Known Allergies Allergy Verified 11/28/16 14:57 Home Meds: Home Meds Aspirin 81 mg PO DAILY 11/26/16 [History] Metoprolol Succinate 200 mg PO DAILY 11/26/16 [History] Past Medical History - Past Health History Medical/Surgical History: Denies Medical/Surgical History HEENT History: Reports: Impaired Vision, Other (See Below) Other HEENT History: tinnitus; wears glasses Cardiovascular History: Reports: Afib, Hypertension Gastrointestinal History: Reports: Other (See Below) Other Gastrointestinal History: Gifford's esophagus Musculoskeletal History: Reports: Arthritis, Fracture Neurological History: Reports: Concussion Psychiatric History: Reports: Depression Hematologic History: Reports: Blood Transfusion(s) - Past Surgical History HEENT Surgical History: Reports: Cataract Surgery, Other (See Below) Other HEENT Surgeries/Procedures: cataract surgery April 2017 Cardiovascular Surgical History: Reports: Other (See Below) Other Cardiovascular Surgeries/Procedures: Lariat procedure 2012 GI Surgical History: Reports: Colonoscopy, EGD Neurological Surgical History: Reports: None Musculoskeletal Surgical History: Reports: Hip Replacement, Other (See Below) Other Musculoskeletal Surgeries/Procedures:: hip replacement x 3 to left hip Social & Family History - Family History Family Medical History: Noncontributory - Tobacco Use Smoking Status *Q: Never Smoker Used Tobacco, but Quit: Yes Month Tobacco Last Used: 0 Second Hand Smoke Exposure: No - Caffeine Use Caffeine Use: Reports: Coffee - Alcohol Use Days Per Week of Alcohol Use: 7 Number of Drinks Per Day: 2 Total Drinks Per Week: 14 - Recreational Drug Use Recreational Drug Use: No ED ROS GENERAL - Review of Systems Review Of Systems: ROS reveals no pertinent complaints other than HPI. ED EXAM, GI/ABD - Physical Exam Exam: See Below (See dictation) Course - Vital Signs Last Recorded V/S: Last Vital Signs Temp 98.4 F 07/31/17 17:27 Pulse 93 07/31/17 20:37 Resp 18 07/31/17 20:37 BP 128/69 07/31/17 20:37 Pulse Ox 95 07/31/17 20:37 - Orders/Labs/Meds Orders: Active Orders 24 hr Category Date Time Status EKG Documentation Completion [RC] STAT Care 07/31/17 17:32 Active Pulse Oximetry [RC] ASDIRECTED Care 07/31/17 17:32 Active Abdomen Pelvis wo Cont [CT] Stat Exams 07/31/17 17:33 Taken Sodium Chloride 0.9% [Normal Saline] 1,000 ml Med 07/31/17 17:45 Active IV STAT Sodium Chloride 0.9% [Saline Flush] Med 07/31/17 17:33 Active 10 ml FLUSH ASDIRECTED PRN Sodium Chloride 0.9% [Saline Flush] Med 07/31/17 17:33 Active 2.5 ml FLUSH ASDIRECTED PRN Saline Lock Insert [OM.PC] Stat Oth 07/31/17 17:32 Ordered Medication Orders Sodium Chloride (Normal Saline) 1,000 mls @ 125 mls/hr IV STAT MATTHEW Last Admin: 07/31/17 17:53 Dose: 125 mls/hr Sodium Chloride (Saline Flush) 10 ml FLUSH ASDIRECTED PRN PRN Reason: Keep Vein Open Sodium Chloride (Saline Flush) 2.5 ml FLUSH ASDIRECTED PRN PRN Reason: Keep Vein Open Labs: Laboratory Tests 07/31/17 07/31/17 07/31/17 Range/Units 17:35 17:35 17:35 WBC 9.81 (4.0-11.0) K/uL RBC 3.51 L (4.50-5.90) M/uL Hgb 10.9 L (13.0-17.0) g/dL Hct 33.0 L (38.0-50.0) % MCV 94.0 (80.0-98.0) fL MCH 31.1 (27.0-32.0) pg MCHC 33.0 (31.0-37.0) g/dL RDW Std Deviation 47.9 (28.0-62.0) fl RDW Coeff of [place] 14 (11.0-15.0) % Plt Count 307 (150-400) K/uL MPV 8.50 (7.40-12.00) fL Neut % (Auto) 77.2 (48.0-80.0) % Lymph % (Auto) 11.9 L (16.0-40.0) % Iron % (Auto) 9.4 (0.0-15.0) % Eos % (Auto) 1.2 (0.0-7.0) % Baso % (Auto) 0.3 (0.0-1.5) % Neut # (Auto) 7.6 H (1.4-5.7) K/uL Lymph # (Auto) 1.2 (0.6-2.4) K/uL Iron # (Auto) 0.9 H (0.0-0.8) K/uL Eos # (Auto) 0.1 (0.0-0.7) K/uL Baso # (Auto) 0.0 (0.0-0.1) K/uL Nucleated RBC % 0.0 /100WBC Nucleated RBCs # 0 K/uL INR 1.07 Sodium 140 (136-146) mmol/L Potassium 5.1 (3.5-5.1) mmol/L Chloride 108 (98-110) mmol/L Carbon Dioxide 22 (21-31) mmol/L BUN 28 H (6.0-23.0) mg/dL Creatinine 1.1 (0.6-1.5) mg/dL Est Cr Clr Drug Dosing TNP Estimated GFR (MDRD) > 60.0 ml/min Glucose 159 H (60-110) mg/dL Calcium 8.9 (8.8-10.8) mg/dL Total Bilirubin 0.5 (0.1-1.5) mg/dL AST 15 (5-40) IU/L ALT 12 (8-54) IU/L Alkaline Phosphatase 81 (40-150) Total Protein 6.9 (6.0-8.0) g/dL Albumin 3.4 (3.4-4.8) g/dL Globulin 3.5 (2.0-3.5) g/dL Albumin/Globulin Ratio 1.0 L (1.3-2.8) Meds: Medications Generic Name Dose Route Start Last Admin Trade Name Freq PRN Reason Stop Dose Admin Sodium Chloride 1,000 mls @ 125 mls/hr 07/31/17 17:45 07/31/17 17:53 Normal Saline IV 125 mls/hr STAT MATTHEW Administration Sodium Chloride 10 ml 07/31/17 17:33 Saline Flush FLUSH ASDIRECTED PRN Keep Vein Open Sodium Chloride 2.5 ml 07/31/17 17:33 Saline Flush FLUSH ASDIRECTED PRN Keep Vein Open Discontinued Medications Generic Name Dose Route Start Last Admin Trade Name Freq PRN Reason Stop Dose Admin Morphine Sulfate 2 mg 07/31/17 19:02 07/31/17 19:23 Morphine IVPUSH 07/31/17 19:03 2 mg ONETIME ONE Administration Ondansetron HCl 4 mg 07/31/17 19:02 07/31/17 19:15 Zofran IVPUSH 07/31/17 19:03 4 mg ONETIME ONE Administration Departure - Departure Time of Disposition: 21:25 Disposition: DC/Tfer to Other 70 Clinical Impression: Bile duct abnormality, Perforated sigmoid colon - Discharge Information Referrals: PCP,None [Primary Care Provider] - Forms: ED Department Discharge
[2017-07-31] MEDS ORDERED: Sodium Chloride 0.9% 1,000 ML IV SCH (17:45)
[2017-07-31 18:12] LABS: CHLORIDE,CL 108 mmol/L (98-110); SODIUM,NA 140 mmol/L (136-146)
[2017-07-31] MEDS ORDERED: Ondansetron 4 MG/2 ML SDV IVPUSH ONE (19:02)
[2017-07-31] MEDS ORDERED: Morphine 2 MG/ML Syringe IVPUSH ONE (19:02)
--- NOTE | 2017-07-31 20:33 | PCM.CONS ---
H&P History of Present Illness - General Date of Service: 07/31/17 Source of Information: Patient History Limitations: Reports: No Limitations - History of Present Illness Initial Comments - Free Text/Narative: Patient is a 76 year old male with CHF, atrial fibrillation who doesn't see a primary care provider in this system who presents with bright red bleeding per rectum. His surgical history is significant for a gastric bypass 15-20 years ago. He had a history of Gifford's esophagus as well. He had a Lariat procedure that had an intraoperative complication requiring a median sternotomy and ex lap. He had a ventral hernia repair at one time. He was seen by neurology today for recent tremors and dizziness. He had labs that showed a hgb of 11.9. He went home and had a bloody bowel movement. This brought him in to the ED. According to his clinic notes at one time he was on Elequis but had a large volume GI bleed requiring hospitalization. There are no records of this and the patient is unclear when this happened. He knows it was something from his colon that caused the bleeding. His last colonoscopy was in [place] 4 years ago and he was scheduled to undergo a repeat scope next month in [place]. He states that his bowel habits have been "looser" recently. His hgb in the ED was 10.9. He denies nausea vomiting abdominal pain or changes in his bladder habits. He had a CT of the abdomen pelvis that showed extraluminal dilation of the CBD with ill -defined attenuation in the distal CBD. He had gas within the gallbladder lumen as well. He also had perforated sigmoid diverticulitis with an irregular collection of gas and soft tissue density that was abscess vs primary colonic neoplasm. - Related Data Allergies/Adverse Reactions: Allergies Allergy/AdvReac Type Severity Reaction Status Date / Time No Known Allergies Allergy Verified 11/28/16 14:57 Home Medications: Home Meds Aspirin 81 mg PO DAILY 11/26/16 [History] Metoprolol Succinate 200 mg PO DAILY 11/26/16 [History] Past Medical History HEENT History: Reports: Impaired Vision, Other (See Below) Other HEENT History: tinnitus; wears glasses Cardiovascular History: Reports: Afib, Hypertension Respiratory History: Reports: Other (See Below) (Former smoker for 20-30 years) Gastrointestinal History: Reports: Other (See Below) Other Gastrointestinal History: Gifford's esophagus, gastric bypass, ventral hernia repair, ex lap Musculoskeletal History: Reports: Arthritis, Fracture Neurological History: Reports: Concussion Psychiatric History: Reports: Depression Hematologic History: Reports: Blood Transfusion(s) - Past Surgical History HEENT Surgical History: Reports: Cataract Surgery, Other (See Below) Other HEENT Surgeries/Procedures: cataract surgery April 2017 Cardiovascular Surgical History: Reports: Other (See Below) Other Cardiovascular Surgeries/Procedures: Lariat procedure 2012 GI Surgical History: Reports: Bariatric Procedure, Colonoscopy, EGD, Hernia, Abdominal Neurological Surgical History: Reports: None Musculoskeletal Surgical History: Reports: Hip Replacement, Other (See Below) Other Musculoskeletal Surgeries/Procedures:: hip replacement x 3 to left hip Social & Family History - Family History Family Medical History: Noncontributory - Tobacco Use Smoking Status *Q: Former Smoker (20-30 years) Used Tobacco, but Quit: Yes Month Tobacco Last Used: 0 Second Hand Smoke Exposure: No - Caffeine Use Caffeine Use: Reports: Coffee - Alcohol Use Days Per Week of Alcohol Use: 7 Number of Drinks Per Day: 2 Total Drinks Per Week: 14 - Recreational Drug Use Recreational Drug Use: No H&P Review of Systems - Review of Systems: Review Of Systems: ROS reveals no pertinent complaints other than HPI. Exam - Exam Exam: See Below - Vital Signs Vital Signs: Last Vital Signs Temp 36.9 C 07/31/17 17:27 Pulse 85 07/31/17 19:17 Resp 18 07/31/17 19:17 BP 142/79 H 07/31/17 19:17 Pulse Ox 96 07/31/17 19:17 - Exam General: Alert, Oriented, Cooperative HEENT: Conjunctiva Clear, Mucosa Moist & [place], Posterior Pharynx Clear, Pupils Equal, Pupils Reactive Lungs: Clear to Auscultation, Normal Respiratory Effort Cardiovascular: Regular Rate, Irregular Rhythm GI/Abdominal Exam: Soft, Non-Tender, No Distention, No Mass, Other (Mild tenderness with deep palpation in the left lower quadrant. Well healed upper abdominal midline and paramedian scars. ) Extremities: Normal Range of Motion, Non-Tender, Pedal Edema Skin: Warm, Dry, Intact Neuro Extensive - Mental Status: Alert, Oriented x3, Normal Mood/Affect Psychiatric: Alert, Normal Affect, Normal Mood - Patient Data Lab Results Last 24 hrs: Laboratory Results - last 24 hr 07/31/17 07/31/17 07/31/17 Range/Units 17:35 17:35 17:35 WBC 9.81 (4.0-11.0) K/uL RBC 3.51 L (4.50-5.90) M/uL Hgb 10.9 L (13.0-17.0) g/dL Hct 33.0 L (38.0-50.0) % MCV 94.0 (80.0-98.0) fL MCH 31.1 (27.0-32.0) pg MCHC 33.0 (31.0-37.0) g/dL RDW Std Deviation 47.9 (28.0-62.0) fl RDW Coeff of [place] 14 (11.0-15.0) % Plt Count 307 (150-400) K/uL MPV 8.50 (7.40-12.00) fL Neut % (Auto) 77.2 (48.0-80.0) % Lymph % (Auto) 11.9 L (16.0-40.0) % [place] % (Auto) 9.4 (0.0-15.0) % Eos % (Auto) 1.2 (0.0-7.0) % Baso % (Auto) 0.3 (0.0-1.5) % Neut # (Auto) 7.6 H (1.4-5.7) K/uL Lymph # (Auto) 1.2 (0.6-2.4) K/uL [place] # (Auto) 0.9 H (0.0-0.8) K/uL Eos # (Auto) 0.1 (0.0-0.7) K/uL Baso # (Auto) 0.0 (0.0-0.1) K/uL Nucleated RBC % 0.0 /100WBC Nucleated RBCs # 0 K/uL INR 1.07 Sodium 140 (136-146) mmol/L Potassium 5.1 (3.5-5.1) mmol/L Chloride 108 (98-110) mmol/L Carbon Dioxide 22 (21-31) mmol/L BUN 28 H (6.0-23.0) mg/dL Creatinine 1.1 (0.6-1.5) mg/dL Est Cr Clr Drug Dosing TNP Estimated GFR (MDRD) > 60.0 ml/min Glucose 159 H (60-110) mg/dL Calcium 8.9 (8.8-10.8) mg/dL Total Bilirubin 0.5 (0.1-1.5) mg/dL AST 15 (5-40) IU/L ALT 12 (8-54) IU/L Alkaline Phosphatase 81 (40-150) Total Protein 6.9 (6.0-8.0) g/dL Albumin 3.4 (3.4-4.8) g/dL Globulin 3.5 (2.0-3.5) g/dL Albumin/Globulin Ratio 1.0 L (1.3-2.8) Result Diagrams: 07/31/17 17:35 07/31/17 17:35 Consult PN Assessment/Plan Procedures: Procedures COMPLETE CBC W/AUTO DIFF WBC (07/11/17) COMPREHEN METABOLIC PANEL (07/11/17) CT HEAD/BRAIN W/O DYE (07/11/17) CT MAXILLOFACIAL W/O DYE (11/28/16) EMERGENCY DEPT VISIT (07/11/17) EMERGENCY DEPT VISIT (11/28/16) HYDRATE IV INFUSION ADD-ON (11/26/16) INFLUENZA ASSAY W/OPTIC (07/11/17) MRI BRAIN STEM W/O & W/DYE (07/11/17) PROTHROMBIN TIME (11/26/16) ROUTINE VENIPUNCTURE (07/11/17) THER/PROPH/DIAG INJ IV PUSH (11/26/16) THER/PROPH/DIAG INJ SC/IM (11/28/16) URINALYSIS AUTO W/SCOPE (07/11/17) X-RAY EXAM CHEST 2 VIEWS (07/11/17) X-RAY EXAM KNEE 4 OR MORE (01/05/17) X-RAY EXAM OF FACIAL BONES (11/26/16) (1) Bile duct abnormality SNOMED Code(s): 618957498 Code(s): K83.9 - DISEASE OF BILIARY TRACT, UNSPECIFIED Current Visit: Yes (2) Perforated sigmoid colon SNOMED Code(s): 440106285 Code(s): K63.1 - PERFORATION OF INTESTINE (NONTRAUMATIC) Current Visit: Yes Problem List Initiated/Reviewed/Updated: Yes Plan: Given the patients medical co-morbidities (medical and surgical) as well as the two issues of sigmoid colon perforation and possible biliary issue (in light of a previous gastric bypass) he will need a higher level of care. Will send him to [facility] as they have a bariatric surgeons, gastroenterologists with ERCP capability, as well as an ICU which he may required depending on his hospital course. I spoke in length with the patient and his son about the issues at hand and the need for transfer. They are in agreement.
[2017-07-31 21:50] VITALS: BP 135/76
[2017-07-31] MEDS ORDERED: Piperacillin/Tazobactam 3.375 GM in Sodium Chloride 0.9% 50 ML IV ONE (21:56)
--- NOTE | 2017-08-01 15:02 | CT ---
EXAM DATE: 07/31/17 PATIENT'S AGE: 76 Patient: KATHARINA BRAR Facility: [place], [place] Site . Site : 1940 Study: CT Abdomen/Pelvis [id number]/19/2018 6:30:11 PM Ordering Physician: Doctor Tian Final Report: INDICATION: Rectal bleeding TECHNIQUE: CT abdomen and pelvis without contrast. COMPARISON: None available FINDINGS: Lower chest: Small posterior left basilar pleural-based calcifications. An apparent small hiatal hernia. Liver: A 1.7 x 1.2 centimeter left hepatic low-density lesion near the intersegmental fissure on image 37, which could represent a cyst. Spleen: Unremarkable. Pancreas: Unremarkable. Gallbladder and bile ducts: A contracted gallbladder containing nondependent gas as well as higher than water attenuation which could represent cholelithiasis. Extrahepatic biliary dilatation and mild central intrahepatic biliary dilatation with the extrahepatic duct measuring 1.2 centimeters. Ill- defined increased attenuation in the distal extrahepatic duct. Adrenal glands: Unremarkable. Kidneys: Unremarkable. No kidney or ureteral stones and no hydronephrosis. GI tract: Post gastric bypass changes. No high-grade mechanical bowel obstruction. A normal appendix. Colonic diverticulosis with a short segment of wall thickening and adjacent stranding in the sigmoid colon suggestive of diverticulitis, although an underlying lesion is not excluded. An adjacent irregular collection of extraluminal gas measuring 3.2 x 1.7 x 2.5 centimeters on image 98, and an ovoid soft tissue density adjacent to the sigmoid colon on image 109 measuring 3.5 x 2.4 x 2.5 centimeters, with few small foci of regional extraluminal gas and adjacent stranding. Vascular structures: Atherosclerotic changes. Lymph nodes: No abnormally enlarged lymph nodes. Miscellaneous: No significant free fluid. A surgical mesh underlying the anterior abdominal wall with a small shallow superimposed fat containing ventral hernia. Pelvic Organs: Partly obscured by artifact. Bones: A left hip arthroplasty. Chronic rib deformities. Degenerative changes in the spine. IMPRESSION: Perforated sigmoid diverticulitis with an adjacent irregular collection of gas and a soft tissue density suggestive of pericolonic abscesses, although a perforated primary colonic neoplasm is not excluded. Further colonic evaluation is recommended. Suspected cholelithiasis with small gas within the gallbladder lumen. Biliary dilatation with apparent ill-defined densities in the CBD, and choledocholithiasis is not excluded. Consider MRCP evaluation. Other findings as above. The findings were discussed with Dr. Izaguirre, by phone, on 07/31/2017 at 6:50 p.m. Dictated by Yuri Ross MD @ 07/31/2017 6:55:36 PM Dictated by: Yuri Ross MD @ 07/31/2017 18:55:50 (Electronic Signature) Report Signed by Proxy. MIKHAIL
== END 2017-07-31 22:33 | disposition other institution (70) ==
LOC: MW.ED 17:04
DX: K57.21 Diverticulitis of large intestine with perforation and abscess with bleeding (principal); K83.8 Other specified diseases of biliary tract; I10 Essential (primary) hypertension; I48.91 Unspecified atrial fibrillation; Z79.82 Long term (current) use of aspirin; Z79.899 Other long term (current) drug therapy; Z87.891 Personal history of nicotine dependence; G62.9 Polyneuropathy, unspecified; R41.3 Other amnesia; Z86.39 Personal history of other endocrine, nutritional and metabolic disease
CPT/HCPCS: 36415; 74176; 80053; 82607; 83036; 84443; 85025; 85610; 93005; 96365; 96375; 99205; 99285; J2270; J2405; J2543; J7040; J7050

== ENCOUNTER 2018-01-01 10:55 | Emergency (ER) | payer MEDICARE ==
[2018-01-01] MEDS ORDERED: Diphtheria,Pertussis(Acell),Tetanus Vaccine 0.5 ML Syringe IM ONE (11:27)
--- NOTE | 2018-01-01 11:38 | EDM.PDOC ---
ED HPI GENERAL MEDICAL PROBLEM - General Chief Complaint: Laceration Stated Complaint: PT IS BEING SEEN FOR CUTS ON HIS ARM Time Seen by Provider: 01/01/18 11:05 Source of Information: Reports: Patient History Limitations: Reports: No Limitations - History of Present Illness INITIAL COMMENTS - FREE TEXT/NARRATIVE: HISTORY AND PHYSICAL: History of present illness: Patient is a 77-year-old male who presents to the ED today after cutting his arm last night on some tree branches. Upon arrival he has but Band-Aids over the area, without bleeding. Other than the superficial cuts, there was no trauma or injury, and he did not fall. He has a history of being on Coumadin for known atrial fibrillation but is not currently on any coagulation for this other than a daily aspirin. He has no systemic complaints. Unsure of his last tetanus. Review of systems: As per history of present illness and below otherwise all systems reviewed and negative. Past medical history: As per history of present illness and as reviewed below otherwise noncontributory. Surgical history: As per history of present illness and as reviewed below otherwise noncontributory. Social history: No reported history of drug or alcohol abuse. Family history: As per history of present illness and as reviewed below otherwise noncontributory. Physical exam: General: Patient is a 77-year-old male who is well-developed, well-nourished, in no acute distress. HEENT: Atraumatic, normocephalic, pupils equal and reactive bilaterally, negative for conjunctival pallor or scleral icterus, mucous membranes moist, throat clear, neck supple, nontender, trachea midline. No drooling or trismus noted. No meningeal signs Lungs: Clear to auscultation, breath sounds equal bilaterally, chest nontender. Heart: S1S2, regular rate and rhythm without overt murmur Abdomen: Soft, nondistended, nontender. Negative for masses or hepatosplenomegaly. Negative for costovertebral tenderness. Pelvis: Stable nontender. Genitourinary: Deferred. Rectal: Deferred. Skin: Bruising noted to the left forearm with superficial skin tears: one at the wrist, and 2 at the mid forearm. Warm, dry. No lesions or rashes noted. Extremities: See skin. Full range of motion of the elbow wrist and hand, will to squeeze hand without loss of sensation, strong radial pulse. Atraumatic, negative for cords or calf pain. Neurovascular unremarkable. Neuro: Awake, alert, oriented. Cranial nerves II through XII unremarkable. Cerebellum unremarkable. Motor and sensory unremarkable throughout. Exam nonfocal. Notes: Patient denies trauma to the left upper extremity and declines the need for x- ray. Wound care done with chlorhexidine, Steri-Strips applied, and a nonstick dressing. Tetanus is updated. We discussed signs and symptoms of infection that would prompt him to return to the emergency room. Diagnostics: [] Therapeutics: wound care, Steri-Strips,Tdap Impression: Skin tear, left upper extremity Plan: 1. Please leave Steri-Strips on, do not remove as they will fall off themselves. Monitor this scan for signs of infection as we discussed. 2. Keep the area clean and dry. 3. Take Tylenol or ibuprofen as needed for pain management. 4. Follow-up with her primary care provider in the next 1-2 days. 5. Return to the ED as needed and as discussed. Definitive disposition and diagnosis as appropriate pending reevaluation and review of above. Duration: Day(s): Location: Reports: Upper Extremity, Left - Related Data Allergies Allergy/AdvReac Type Severity Reaction Status Date / Time No Known Allergies Allergy Verified 01/01/18 11:29 Home Meds: Home Meds Aspirin 81 mg PO DAILY 11/26/16 [History] Metoprolol Succinate 200 mg PO DAILY 11/26/16 [History] Past Medical History - Past Health History Medical/Surgical History: Denies Medical/Surgical History HEENT History: Reports: Impaired Vision, Other (See Below) Other HEENT History: tinnitus; wears glasses Cardiovascular History: Reports: Afib, Hypertension Respiratory History: Reports: Other (See Below) (Former smoker for 20-30 years) Gastrointestinal History: Reports: Other (See Below) Other Gastrointestinal History: Gifford's esophagus Musculoskeletal History: Reports: Arthritis, Fracture Neurological History: Reports: Concussion Psychiatric History: Reports: Depression Hematologic History: Reports: Blood Transfusion(s) - Past Surgical History HEENT Surgical History: Reports: Cataract Surgery, Other (See Below) Other HEENT Surgeries/Procedures: cataract surgery April 2017 Cardiovascular Surgical History: Reports: Other (See Below) Other Cardiovascular Surgeries/Procedures: Lariat procedure 2012 GI Surgical History: Reports: Colonoscopy, EGD Neurological Surgical History: Reports: None Musculoskeletal Surgical History: Reports: Hip Replacement, Other (See Below) Other Musculoskeletal Surgeries/Procedures:: hip replacement x 3 to left hip Social & Family History - Family History Family Medical History: Noncontributory - Caffeine Use Caffeine Use: Reports: Coffee ED ROS GENERAL - Review of Systems Review Of Systems: ROS reveals no pertinent complaints other than HPI. ED EXAM, SKIN/RASH Exam: See Below (See dictation) Course - Vital Signs Last Recorded V/S: Last Vital Signs Temp 97.2 F 01/01/18 11:24 Pulse 81 01/01/18 11:24 Resp 18 01/01/18 11:24 BP 153/91 H 01/01/18 11:24 Pulse Ox 95 01/01/18 11:24 - Orders/Labs/Meds Orders: Active Orders 24 hr Category Date Time Status Communication Order [RC] STAT Care 01/01/18 11:27 Active Vaccines to be Administered [RC] PER UNIT ROUTINE Care 01/01/18 11:28 Active Meds: Medications Discontinued Medications Generic Name Dose Route Start Last Admin Trade Name Jane PRN Reason Stop Dose Admin Diphtheria/Tetanus/Acell Pertussis 0.5 ml 01/01/18 11:27 Adacel IM 01/01/18 11:28 .ONCE ONE Departure - Departure Time of Disposition: 11:39 Disposition: Home, Self-Care 01 Clinical Impression: Skin tear of left upper arm without complication Qualifiers: Encounter type: initial encounter Qualified Code(s): S41.112A - Laceration without foreign body of left upper arm, initial encounter - Discharge Information Instructions: Skin Tear Care, [id number] Referrals: PCP,None [Primary Care Provider] - Additional Instructions: The following information is given to patients seen in the emergency department who are being discharged to home. This information is to outline your options for follow-up care. We provide all patients seen in our emergency department with a follow-up referral. The need for follow-up, as well as the timing and circumstances, are variable depending upon the specifics of your emergency department visit. If you don't have a primary care physician on staff, we will provide you with a referral. We always advise you to contact your personal physician following an emergency department visit to inform them of the circumstance of the visit and for follow-up with them and/or the need for any referrals to a consulting specialist. The emergency department will also refer you to a specialist when appropriate. This referral assures that you have the opportunity for follow-up care with a specialist. All of these measure are taken in an effort to provide you with optimal care, which includes your follow-up. Under all circumstances we always encourage you to contact your private physician who remains a resource for coordinating your care. When calling for follow-up care, please make the office aware that this follow-up is from your recent emergency room visit. If for any reason you are refused follow-up, please contact the [facility] Emergency Department at and asked to speak to the emergency department charge nurse. [facility] [place] [address] 1. Please leave Steri-Strips on, do not remove as they will fall off themselves. Monitor this scan for signs of infection as we discussed. 2. Keep the area clean and dry. 3. Take Tylenol or ibuprofen as needed for pain management. 4. Follow-up with her primary care provider in the next 1-2 days. 5. Return to the ED as needed and as discussed. - My Orders Last 24 Hours: My Active Orders 01/01/18 11:27 Communication Order [RC] STAT 01/01/18 11:28 Vaccines to be Administered [RC] PER UNIT ROUTINE - Assessment/Plan Last 24 Hours: My Active Orders 01/01/18 11:27 Communication Order [RC] STAT 01/01/18 11:28 Vaccines to be Administered [RC] PER UNIT ROUTINE
[2018-01-01 12:48] VITALS: BP 145/98
== END 2018-01-01 12:17 | disposition home or self-care (01) ==
LOC: MW.ED 10:55
DX: S51.812A Laceration without foreign body of left forearm, initial encounter (principal); Z23 Encounter for immunization; Z79.82 Long term (current) use of aspirin; Z79.899 Other long term (current) drug therapy; Z87.891 Personal history of nicotine dependence; W45.8XXA Other foreign body or object entering through skin, initial encounter
CPT/HCPCS: 90471; 90715; 99282-25

== ENCOUNTER 2018-07-09 07:33 | Emergency (ER) | payer MEDICARE ==
--- NOTE | 2018-07-09 07:37 | EDM.PDOC ---
ED HPI GENERAL MEDICAL PROBLEM - General Stated Complaint: PERSISTENT BLOODY NOSE Time Seen by Provider: 07/09/18 07:37 Source of Information: Reports: Patient - History of Present Illness INITIAL COMMENTS - FREE TEXT/NARRATIVE: HISTORY AND PHYSICAL: History of present illness: [Patient presents with epistaxis involving the left there is unable to stop the bleeding at home for over an hour he is on aspirin and Plavix No fever nausea vomiting chills sweats ] Review of systems: As per history of present illness and below otherwise all systems reviewed and negative. Past medical history: As per history of present illness and as reviewed below otherwise noncontributory. Surgical history: As per history of present illness and as reviewed below otherwise noncontributory. Social history: No reported history of drug or alcohol abuse. Family history: As per history of present illness and as reviewed below otherwise noncontributory. Physical exam: HEENT: Atraumatic, normocephalic, pupils reactive, negative for conjunctival pallor or scleral icterus, mucous membranes moist, throat clear, neck supple, nontender, trachea midline. Conjunctival hematoma noted on the right, left nares actively bleeding on arrival however with nasal clamp and ice packs bleeding did resolve or did cauterize an anterior lesion with silver nitrate Lungs: Clear to auscultation, breath sounds equal bilaterally, chest nontender. Heart: S1S2, regular, negative for clicks, rubs, or JVD. Abdomen: Soft, nondistended, nontender. Negative for masses or hepatosplenomegaly. Negative for costovertebral tenderness. Pelvis: Stable nontender. Genitourinary: Deferred. Rectal: Deferred. Extremities: Atraumatic, negative for cords or calf pain. Neurovascular unremarkable. Neuro: Awake, alert, oriented. Cranial nerves II through XII unremarkable. Cerebellum unremarkable. Motor and sensory unremarkable throughout. Exam nonfocal. Diagnostics: []CBC INR Therapeutics: []Silver nitrate cauterization left nares Impression: [Epistaxis] resolved Definitive disposition and diagnosis as appropriate pending reevaluation and review of above. Right Eye Pain Score (Numeric/FACES): 6 - Related Data Allergies Allergy/AdvReac Type Severity Reaction Status Date / Time No Known Allergies Allergy Verified 03/20/18 10:03 Home Meds: Home Meds Aspirin 81 mg PO DAILY 11/26/16 [History] Metoprolol Succinate 100 mg PO QAM 11/26/16 [History] Furosemide 40 mg PO BID 01/01/18 [History] Omeprazole 20 mg PO BID 01/01/18 [History] Sertraline HCl 50 mg PO DAILY 01/01/18 [History] Albuterol [Ventolin HFA] 2 puff INH Q4H PRN 03/09/18 [History] Clopidogrel [Plavix] 75 mg PO DAILY 03/09/18 [History] Acetaminophen/HYDROcodone [[place] 325-5 MG] 1 - 2 tab PO Q4H PRN tablet [Rx] Past Medical History - Past Health History Medical/Surgical History: Denies Medical/Surgical History HEENT History: Reports: Cataract, Hard of Hearing, Other (See Below) Other HEENT History: has upper full denture and lower removal partial denture Cardiovascular History: Reports: Afib, Hypertension, Other (See Below) Respiratory History: Reports: COPD, Sleep Apnea, SOB Other Respiratory History: uses inhaler q4h, uses CPAP Gastrointestinal History: Reports: Diverticulosis, GERD, GI Bleed, Other (See Below) Other Gastrointestinal History: hx of Barretts esophagus, hx of bleeding from rectum while on Eliquis- received 12+ units of blood Musculoskeletal History: Reports: Arthritis, Back Pain, Chronic, Fracture Other Musculoskeletal History: hx of fx right arm, right wrist, skull, and clavicle Neurological History: Reports: Concussion, Head Trauma, Other (See Below) Other Neuro History: hx of fx skull, hx of motion sickness Psychiatric History: Reports: Anxiety, Other (See Below) Endocrine/Metabolic History: Reports: Obesity/BMI 30+ Hematologic History: Reports: Anemia, Anticoagulation Therapy, Blood Transfusion (s) Oncologic (Cancer) History: Reports: Other (See Below) 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 - Infectious Disease History Infectious Disease History: Reports: Chicken Pox, Measles, Mumps - Past Surgical History Head Surgeries/Procedures: Reports: None HEENT Surgical History: Reports: Cataract Surgery Other HEENT Surgeries/Procedures: cataract surgery April 2017 Cardiovascular Surgical History: Reports: Vascular Surgery, Other (See Below) Other Cardiovascular Surgeries/Procedures: Lariat procedure- resulting in open chest procedure, had recent angioplasty with "stent" in leg GI Surgical History: Reports: Bariatric Procedure, Hernia, Inguinal, Other (See Below) Other GI Surgeries/Procedures: I&D of buttocks Neurological Surgical History: Reports: None Musculoskeletal Surgical History: Reports: Hip Replacement, ORIF, Shoulder Surgery Other Musculoskeletal Surgeries/Procedures:: hx of left BERNARD x3 with other hip procedures, ORIF right wrist with tendon transfer Social & Family History - Family History Family Medical History: Noncontributory - Caffeine Use Caffeine Use: Reports: Coffee ED ROS GENERAL - Review of Systems Review Of Systems: See Below ED EXAM, GENERAL - Physical Exam Exam: See Below Course - Vital Signs Last Recorded V/S: Last Vital Signs Temp 96.2 F 07/09/18 07:43 Pulse 106 H 07/09/18 07:43 Resp 16 07/09/18 07:43 BP 153/95 H 07/09/18 07:43 Pulse Ox 96 07/09/18 07:43 - Orders/Labs/Meds Labs: Laboratory Tests 07/09/18 07/09/18 Range/Units 07:55 07:55 WBC 6.09 (4.0-11.0) K/uL RBC 3.89 L (4.50-5.90) M/uL Hgb 10.5 L (13.0-17.0) g/dL Hct 33.0 L (38.0-50.0) % MCV 84.8 (80.0-98.0) fL MCH 27.0 (27.0-32.0) pg MCHC 31.8 (31.0-37.0) g/dL RDW Std Deviation 50.5 (28.0-62.0) fl RDW Coeff of [place] 16 H (11.0-15.0) % Plt Count 302 (150-400) K/uL MPV 9.20 (7.40-12.00) fL Neut % (Auto) 65.2 (48.0-80.0) % Lymph % (Auto) 15.9 L (16.0-40.0) % [place] % (Auto) 13.3 (0.0-15.0) % Eos % (Auto) 4.9 (0.0-7.0) % Baso % (Auto) 0.7 (0.0-1.5) % Neut # (Auto) 4.0 (1.4-5.7) K/uL Lymph # (Auto) 1.0 (0.6-2.4) K/uL [place] # (Auto) 0.8 (0.0-0.8) K/uL Eos # (Auto) 0.3 (0.0-0.7) K/uL Baso # (Auto) 0.0 (0.0-0.1) K/uL Nucleated RBC % 0.0 /100WBC Nucleated RBCs # 0 K/uL INR 1.00 Departure - Departure Time of Disposition: 08:25 Disposition: Home, Self-Care 01 Condition: Good Clinical Impression: Epistaxis - Discharge Information Additional Instructions: The following information is given to patients seen in the emergency department who are being discharged to home. This information is to outline your options for follow-up care. We provide all patients seen in our emergency department with a follow-up referral. The need for follow-up, as well as the timing and circumstances, are variable depending upon the specifics of your emergency department visit. If you don't have a primary care physician on staff, we will provide you with a referral. We always advise you to contact your personal physician following an emergency department visit to inform them of the circumstance of the visit and for follow-up with them and/or the need for any referrals to a consulting specialist. The emergency department will also refer you to a specialist when appropriate. This referral assures that you have the opportunity for follow-up care with a specialist. All of these measure are taken in an effort to provide you with optimal care, which includes your follow-up. Under all circumstances we always encourage you to contact your private physician who remains a resource for coordinating your care. When calling for follow-up care, please make the office aware that this follow-up is from your recent emergency room visit. If for any reason you are refused follow-up, please contact the [facility] emergency department at and asked to speak to the emergency department charge nurse.
[2018-07-09 09:02] VITALS: BP 152/91
== END 2018-07-09 09:02 | disposition home or self-care (01) ==
LOC: MW.ED 07:33
DX: R04.0 Epistaxis (principal); I10 Essential (primary) hypertension; J44.9 Chronic obstructive pulmonary disease, unspecified; Z79.01 Long term (current) use of anticoagulants; Z79.82 Long term (current) use of aspirin; Z79.899 Other long term (current) drug therapy
CPT/HCPCS: 30901; 36415; 85025; 85610; 99283

== ENCOUNTER 2018-08-16 09:55 | Emergency (ER) | payer MEDICARE ==
--- NOTE | 2018-08-16 10:42 | EDM.PDOC ---
ED HPI GENERAL MEDICAL PROBLEM - General Chief Complaint: Lower Extremity Injury/Pain Stated Complaint: INJURED TOE Time Seen by Provider: 08/16/18 10:14 Source of Information: Reports: Patient History Limitations: Reports: No Limitations - History of Present Illness INITIAL COMMENTS - FREE TEXT/NARRATIVE: History of present illness: []Patient was taking off his sock and his toenail got caught in a partially lifted off. Patient is on Plavix and he is unable to get control of the bleeding. Review of systems: As per history of present illness and below otherwise all systems reviewed and negative. Past medical history: As per history of present illness and as reviewed below otherwise noncontributory. Surgical history: As per history of present illness and as reviewed below otherwise noncontributory. Social history: No reported history of drug or alcohol abuse. Family history: As per history of present illness and as reviewed below otherwise noncontributory. Physical exam: General: Well developed, well nourished in NAD HEENT: Atraumatic, normocephalic, pupils reactive, negative for conjunctival pallor or scleral icterus, mucous membranes moist, throat clear, neck supple, nontender, trachea midline. Lungs: Clear to auscultation, breath sounds equal bilaterally, chest nontender. Heart: S1S2, regular, negative for clicks, rubs, or JVD. Abdomen: NABS, Soft, nondistended, nontender. Negative for masses or hepatosplenomegaly. Negative for costovertebral tenderness. Pelvis: Stable nontender. Genitourinary: Deferred. Rectal: Deferred. Extremities: Left small toe with avulsed nail, negative for cords or calf pain. Neurovascular unremarkable. Neuro: Awake, alert, oriented. Cranial nerves II through XII unremarkable. Cerebellum unremarkable. Motor and sensory unremarkable throughout. Exam nonfocal. Skin:warm and dry Diagnostics: None Therapeutics: Toenail removed, Surgicel dressing placed ED Course: Unremarkable Impression: Nail plate avulsion Prescriptions: None Plan: Dressing on for 48 hours follow up with primary care as needed return if symptoms worsen including redness, fevers or increased pain. Definitive disposition and diagnosis as appropriate pending reevaluation and review of above. - Related Data Allergies Allergy/AdvReac Type Severity Reaction Status Date / Time No Known Allergies Allergy Verified 08/16/18 10:12 Home Meds: Home Meds Aspirin 81 mg PO DAILY 11/26/16 [History] Metoprolol Succinate 100 mg PO QAM 11/26/16 [History] Furosemide 40 mg PO BID 01/01/18 [History] Omeprazole 20 mg PO BID 01/01/18 [History] Sertraline HCl 50 mg PO DAILY 01/01/18 [History] Albuterol [Ventolin HFA] 2 puff INH Q4H PRN 03/09/18 [History] Clopidogrel [Plavix] 75 mg PO DAILY 03/09/18 [History] Acetaminophen/HYDROcodone [[place] 325-5 MG] 1 - 2 tab PO Q4H PRN tablet [Rx] Past Medical History - Past Health History Medical/Surgical History: Denies Medical/Surgical History HEENT History: Reports: Cataract, Hard of Hearing, Other (See Below) Other HEENT History: has upper full denture and lower removal partial denture Cardiovascular History: Reports: Afib, Hypertension, Other (See Below) Respiratory History: Reports: COPD, Sleep Apnea, SOB Other Respiratory History: uses inhaler q4h, uses CPAP Gastrointestinal History: Reports: Diverticulosis, GERD, GI Bleed, Other (See Below) Other Gastrointestinal History: hx of Barretts esophagus, hx of bleeding from rectum while on Eliquis- received 12+ units of blood Musculoskeletal History: Reports: Arthritis, Back Pain, Chronic, Fracture Other Musculoskeletal History: hx of fx right arm, right wrist, skull, and clavicle Neurological History: Reports: Concussion, Head Trauma, Other (See Below) Other Neuro History: hx of fx skull, hx of motion sickness Psychiatric History: Reports: Anxiety, Other (See Below) Endocrine/Metabolic History: Reports: Obesity/BMI 30+ Hematologic History: Reports: Anemia, Anticoagulation Therapy, Blood Transfusion (s) Oncologic (Cancer) History: Reports: Other (See Below) 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 - Infectious Disease History Infectious Disease History: Reports: Chicken Pox, Measles, Mumps - Past Surgical History Head Surgeries/Procedures: Reports: None HEENT Surgical History: Reports: Cataract Surgery Other HEENT Surgeries/Procedures: cataract surgery April 2017 Cardiovascular Surgical History: Reports: Vascular Surgery, Other (See Below) Other Cardiovascular Surgeries/Procedures: Lariat procedure- resulting in open chest procedure, had recent angioplasty with "stent" in leg GI Surgical History: Reports: Bariatric Procedure, Hernia, Inguinal, Other (See Below) Other GI Surgeries/Procedures: I&D of buttocks Neurological Surgical History: Reports: None Musculoskeletal Surgical History: Reports: Hip Replacement, ORIF, Shoulder Surgery Other Musculoskeletal Surgeries/Procedures:: hx of left BERNARD x3 with other hip procedures, ORIF right wrist with tendon transfer Social & Family History - Family History Family Medical History: Noncontributory - Tobacco Use Smoking Status *Q: Former Smoker Used Tobacco, but Quit: Yes Month/Year Tobacco Last Used: 1998 - Caffeine Use Caffeine Use: Reports: Coffee - Recreational Drug Use Recreational Drug Use: No Review of Systems - Review of Systems Review Of Systems: ROS reveals no pertinent complaints other than HPI. ED EXAM, GENERAL - Physical Exam Exam: See Below (See history of present illness) Course - Vital Signs Last Recorded V/S: Last Vital Signs Temp 97.0 F 08/16/18 10:06 Pulse 112 H 08/16/18 10:06 Resp 22 H 08/16/18 10:06 BP 159/97 H 08/16/18 10:06 Pulse Ox 95 08/16/18 10:06 Departure - Departure Time of Disposition: 10:47 Disposition: Home, Self-Care 01 Condition: Good Clinical Impression: Avulsion of nail plate - Discharge Information *PRESCRIPTION DRUG MONITORING PROGRAM REVIEWED*: No *COPY OF PRESCRIPTION DRUG MONITORING REPORT IN PATIENT TAMERA: No Referrals: Sotero Peace MD [Primary Care Provider] - Forms: ED Department Discharge Additional Instructions: The following information is given to patients seen in the emergency department who are being discharged to home. This information is to outline your options for follow-up care. We provide all patients seen in our emergency department with a follow-up referral. The need for follow-up, as well as the timing and circumstances, are variable depending upon the specifics of your emergency department visit. If you don't have a primary care physician on staff, we will provide you with a referral. We always advise you to contact your personal physician following an emergency department visit to inform them of the circumstance of the visit and for follow-up with them and/or the need for any referrals to a consulting specialist. The emergency department will also refer you to a specialist when appropriate. This referral assures that you have the opportunity for follow-up care with a specialist. All of these measure are taken in an effort to provide you with optimal care, which includes your follow-up. Under all circumstances we always encourage you to contact your private physician who remains a resource for coordinating your care. When calling for follow-up care, please make the office aware that this follow-up is from your recent emergency room visit. If for any reason you are refused follow-up, please contact the [facility] Emergency Department at and asked to speak to the emergency department charge nurse. [facility] [address] [place] [id number]
[2018-08-16 11:08] VITALS: BP 155/94
== END 2018-08-16 11:05 | disposition home or self-care (01) ==
LOC: MW.ED 09:55
DX: S91.205A Unspecified open wound of left lesser toe(s) with damage to nail, initial encounter (principal); I48.91 Unspecified atrial fibrillation; I10 Essential (primary) hypertension; J44.9 Chronic obstructive pulmonary disease, unspecified; Z87.891 Personal history of nicotine dependence; W23.0XXA Caught, crushed, jammed, or pinched between moving objects, initial encounter; Z79.899 Other long term (current) drug therapy; Z79.82 Long term (current) use of aspirin
CPT/HCPCS: 99283

== ENCOUNTER 2018-11-17 00:35 | Emergency (ER) | payer MEDICARE ==
[2018-11-17] MEDS ORDERED: Phenylephrine 0.5% Nasal Spray 15 ML Bot NASRT ONE (01:00)
--- NOTE | 2018-11-17 01:04 | EDM.PDOC ---
ED HPI GENERAL MEDICAL PROBLEM - General Chief Complaint: ENT Problem Stated Complaint: NOSE BLEED Time Seen by Provider: 11/17/18 00:50 - History of Present Illness INITIAL COMMENTS - FREE TEXT/NARRATIVE: HISTORY AND PHYSICAL: History of present illness: The patient is a 78-year-old male with a history of A. fib who takes Plavix and daily aspirin and has a history of recurrent nosebleeds and did see ENT 2 days ago at [facility], Dr. Escalante, and says that on that visit he did do a scope and did some manipulation and cautery and now presents with a nosebleed that started just 20-30 minutes ago while he was sitting in a chair. He denies any recent cold pain shortness of breath nausea vomiting or nasal drainage and denies any trauma to the area. He says that the nosebleed is on the right side which is typical for him. He doesn't feel lightheaded or dizzy Review of systems: As per history of present illness and below otherwise all systems reviewed and negative. Past medical history: As per history of present illness and as reviewed below otherwise noncontributory. Surgical history: As per history of present illness and as reviewed below otherwise noncontributory. Social history: No reported history of drug or alcohol abuse. Family history: As per history of present illness and as reviewed below otherwise noncontributory. Physical exam: General: Well-developed well-nourished man who is nontoxic and vital signs are noted by me HEENT: Atraumatic, normocephalic, pupils reactive, negative for conjunctival pallor or scleral icterus, mucous membranes moist, throat clear, neck supple, nontender, trachea midline. Nasal turbinates are engorged bilaterally and there is fresh blood in the nasal passageway on the right and no definite area of excoriation or bleeding is seen. There is a small amount of posterior oropharyngeal blood seen the patient keeps spitting blood. Lungs: Clear to auscultation, breath sounds equal bilaterally, chest nontender. Heart: S1S2, regular rate but irregularly irregular rhythm on my evaluation consistent with his A. fib, no overt murmurs Abdomen: Soft, nondistended, nontender. NABS Pelvis: Deferred Genitourinary: Deferred. Rectal: Deferred. Extremities: Atraumatic, negative for cords or calf pain. Neurovascular unremarkable. Neuro: Awake, alert, oriented. Cranial nerves II through XII unremarkable. Cerebellum unremarkable. Motor and sensory unremarkable throughout. Exam nonfocal. Diagnostics: CBC INR Therapeutics: Filippo-Synephrine, nasal packing he procedure note, mustache dressing Keflex Procedure note: After the procedure was explained to the patient Filippo-Synephrine was instilled to reduce the swelling of the nasal turbinates and after 5 or 10 minutes a 5.5 cm Rhino Rocket was placed without complication. The balloon was inflated and I continue to monitor the patient for the balloon as well as for further bleeding. A mustache dressing will be placed by nursing. On reevaluation and check of the balloon the patient is no longer bleeding and a mustache dressing will be placed. The patient is aware that he needs to have the pack removed in 2 [address] will place him on prophylactic Keflex. I've advised him to call Dr. Escalante's office on Monday morning and see if he can be seen in the office and have the pack removed and have a repeat scope to see if there is a new area of injury and that if he cannot have an appointment on Monday he needs to return here for pack removal and still make a follow-up appointment with the ENT. Impression: epistaxis right, history of same Definitive disposition and diagnosis as appropriate pending reevaluation and review of above. - Related Data Allergies Allergy/AdvReac Type Severity Reaction Status Date / Time No Known Allergies Allergy Verified 11/17/18 00:49 Home Meds: Home Meds Aspirin 81 mg PO DAILY 11/26/16 [History] Furosemide 40 mg PO BID 01/01/18 [History] Omeprazole 20 mg PO BID 01/01/18 [History] Sertraline HCl 50 mg PO DAILY 01/01/18 [History] Albuterol [Ventolin HFA] 2 puff INH Q4H PRN 03/09/18 [History] Clopidogrel [Plavix] 75 mg PO DAILY 03/09/18 [History] Past Medical History - Past Health History Medical/Surgical History: Denies Medical/Surgical History HEENT History: Reports: Cataract, Hard of Hearing, Other (See Below) Other HEENT History: has upper full denture and lower removal partial denture Cardiovascular History: Reports: Afib, Hypertension Respiratory History: Reports: COPD, Sleep Apnea, SOB Other Respiratory History: uses inhaler q4h, uses CPAP Gastrointestinal History: Reports: Diverticulosis, GERD, GI Bleed, Other (See Below) Other Gastrointestinal History: hx of Barretts esophagus, hx of bleeding from rectum while on Eliquis- received 12+ units of blood Musculoskeletal History: Reports: Arthritis, Back Pain, Chronic, Fracture Other Musculoskeletal History: hx of fx right arm, right wrist, skull, and clavicle Neurological History: Reports: Concussion, Head Trauma, Other (See Below) Other Neuro History: hx of fx skull, hx of motion sickness Psychiatric History: Reports: Anxiety Endocrine/Metabolic History: Reports: Obesity/BMI 30+ Hematologic History: Reports: Anemia, Anticoagulation Therapy, Blood Transfusion (s) Oncologic (Cancer) History: Reports: Other (See Below) 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 - Infectious Disease History Infectious Disease History: Reports: Chicken Pox, Measles, Mumps - Past Surgical History Head Surgeries/Procedures: Reports: None HEENT Surgical History: Reports: Cataract Surgery Other HEENT Surgeries/Procedures: cataract surgery April 2017 Cardiovascular Surgical History: Reports: Vascular Surgery, Other (See Below) Other Cardiovascular Surgeries/Procedures: Lariat procedure- resulting in open chest procedure, had recent angioplasty with "stent" in leg GI Surgical History: Reports: Bariatric Procedure, Hernia, Inguinal, Other (See Below) Other GI Surgeries/Procedures: I&D of buttocks Neurological Surgical History: Reports: None Musculoskeletal Surgical History: Reports: Hip Replacement, ORIF, Shoulder Surgery Other Musculoskeletal Surgeries/Procedures:: hx of left BERNRAD x3 with other hip procedures, ORIF right wrist with tendon transfer Social & Family History - Family History Family Medical History: Noncontributory - Tobacco Use Smoking Status *Q: Never Smoker - Caffeine Use Caffeine Use: Reports: Coffee - Recreational Drug Use Recreational Drug Use: No ED ROS GENERAL - Review of Systems Review Of Systems: ROS reveals no pertinent complaints other than HPI. ED EXAM, GENERAL - Physical Exam Exam: See Below (See dictation) Course - Vital Signs Last Recorded V/S: Last Vital Signs Temp 36.3 C 11/17/18 00:35 Pulse 102 H 11/17/18 00:35 Resp 18 11/17/18 00:35 BP 168/96 H 11/17/18 00:35 Pulse Ox 96 11/17/18 00:35 - Orders/Labs/Meds Labs: Laboratory Tests 11/17/18 11/17/18 Range/Units 01:10 01:10 WBC 6.07 (4.0-11.0) K/uL RBC 4.00 L (4.50-5.90) M/uL Hgb 10.4 L (13.0-17.0) g/dL Hct 32.0 L (38.0-50.0) % MCV 80.0 (80.0-98.0) fL MCH 26.0 L (27.0-32.0) pg MCHC 32.5 (31.0-37.0) g/dL RDW Std Deviation 48.2 (28.0-62.0) fl RDW Coeff of Lawrence 17 H (11.0-15.0) % Plt Count 308 (150-400) K/uL MPV 8.80 (7.40-12.00) fL Neut % (Auto) 70.0 (48.0-80.0) % Lymph % (Auto) 14.0 L (16.0-40.0) % [place] % (Auto) 12.9 (0.0-15.0) % Eos % (Auto) 1.8 (0.0-7.0) % Baso % (Auto) 1.3 (0.0-1.5) % Neut # (Auto) 4.3 (1.4-5.7) K/uL Lymph # (Auto) 0.9 (0.6-2.4) K/uL [place] # (Auto) 0.8 (0.0-0.8) K/uL Eos # (Auto) 0.1 (0.0-0.7) K/uL Baso # (Auto) 0.1 (0.0-0.1) K/uL INR 0.96 Meds: Medications Discontinued Medications Generic Name Dose Route Start Last Admin Trade Name Freq PRN Reason Stop Dose Admin Phenylephrine HCl 2 ml 11/17/18 01:00 11/17/18 01:19 Filippo-Synephrine 0.5% Regular Nasal [place] NASRT 11/17/18 01:01 2 spray ONETIME ONE Administration Departure - Departure Time of Disposition: 02:08 Disposition: Home, Self-Care 01 Condition: Good Clinical Impression: Right-sided epistaxis - Discharge Information Referrals: PCP,None [Primary Care Provider] - Forms: ED Department Discharge Additional Instructions: The following information is given to patients seen in the emergency department who are being discharged to home. This information is to outline your options for follow-up care. We provide all patients seen in our emergency department with a follow-up referral. The need for follow-up, as well as the timing and circumstances, are variable depending upon the specifics of your emergency department visit. If you don't have a primary care physician on staff, we will provide you with a referral. We always advise you to contact your personal physician following an emergency department visit to inform them of the circumstance of the visit and for follow-up with them and/or the need for any referrals to a consulting specialist. The emergency department will also refer you to a specialist when appropriate. This referral assures that you have the opportunity for followup care with a specialist. All of these measure are taken in an effort to provide you with optimal care, which includes your followup. Under all circumstances we always encourage you to contact your private physician who remains a resource for coordinating your care. When calling for followup care, please make the office aware that this follow-up is from your recent emergency room visit. If for any reason you are refused follow-up, please contact the [facility] emergency department at and ask to speak to the emergency department charge nurse. [address] [place] [address] Please follow-up with Dr. Escalante; call his office Monday morning and see if you can be seen on Monday to have the pack removed and reevaluation. If he cannot see one Monday then make an appointment at another time next week and return to ER on Monday to have the pack removed. Take Keflex as he has been prescribed as prophylaxis and exchange mustache dressing for any spotting and dripping of blood. With the pack you need to take care not to dislodge it and there may still be some dripping and bleeding which is normal. Please sleep on 2 pillows to prevent sinus drainage and do not manipulate the pack or urine no until it is removed. Return to ER sooner as needed and as discussed
[2018-11-17] MEDS ORDERED: Cephalexin 500 MG Cap PO ONE (02:10)
[2018-11-17 02:36] VITALS: BP 139/92
== END 2018-11-17 02:30 | disposition home or self-care (01) ==
LOC: MW.ED 00:35
DX: R04.0 Epistaxis (principal); I10 Essential (primary) hypertension; I48.91 Unspecified atrial fibrillation; E66.9 Obesity, unspecified; M19.90 Unspecified osteoarthritis, unspecified site; K21.9 Gastro-esophageal reflux disease without esophagitis; F41.9 Anxiety disorder, unspecified; Z98.84 Bariatric surgery status; Z98.49 Cataract extraction status, unspecified eye; Z79.82 Long term (current) use of aspirin; Z79.899 Other long term (current) drug therapy
CPT/HCPCS: 30903; 36415; 85025; 85610; 99283; A9270; 30901

== ENCOUNTER 2018-11-29 16:56 | Observation (INO) | payer MEDICARE ==
[2018-11-29] MEDS ORDERED: Sodium Chloride 0.9% 2.5 ML Syringe FLUSH PRN (16:58)
[2018-11-29] MEDS ORDERED: Sodium Chloride 0.9% 10 ML Syringe FLUSH PRN (16:58)
[2018-11-29] MEDS ORDERED: Ondansetron 4 MG/2 ML SDV IVPUSH ONE (16:58)
--- NOTE | 2018-11-29 17:16 | EDM.PDOC ---
ED HPI GENERAL MEDICAL PROBLEM - General Stated Complaint: VERTIGO,NAUSEA Time Seen by Provider: 11/29/18 16:59 Source of Information: Reports: Patient History Limitations: Reports: No Limitations - History of Present Illness INITIAL COMMENTS - FREE TEXT/NARRATIVE: HISTORY AND PHYSICAL: History of present illness: Patient is a 78-year-old male who presents to the emergency room today with complaints of dizziness, nausea and shortness of breath. Patient states this morning he noticed while he was ambulating he became more short of breath and dizziness with movement. He states the symptoms do cause some nausea. Symptoms are alleviated when he is sitting still or lying down. Symptoms are not elicited with head movement, rather with physical activity and ambulation. Patient does answer questions appropriately but appears to be word searching when having a conversation. [id number] reports this is new today. He denies any weakness, slurred speech or neurological or motor deficits. Patient reports he does have a history of COPD and atrial fibrillation. 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 He is supposed to start physical therapy as he has been having increased difficulty with ambulation. During this visit he was started on Flomax once daily. The [id number] reports patient has fallen several times over the past weekend. Patient denies hitting his head or having any loss of consciousness. There are various scattered bruising noted throughout the body. Review of systems: As per history of present illness and below otherwise all systems reviewed and negative. Past medical history: As per history of present illness and as reviewed below otherwise noncontributory. Surgical history: As per history of present illness and as reviewed below otherwise noncontributory. Social history: See social history for further information Family history: As per history of present illness and as reviewed below otherwise noncontributory. Physical exam: General: Well-developed and well-nourished 78-year-old male. Alert and oriented. Nontoxic appearing and in no acute distress. HEENT: Atraumatic, normocephalic, pupils equal and reactive bilaterally, negative for conjunctival pallor or scleral icterus, mucous membranes moist, TMs normal bilaterally, throat clear, neck supple, nontender, trachea midline. No drooling or trismus noted. No meningeal signs. No hot potato voice noted. Lungs: Clear to auscultation, breath sounds equal bilaterally, chest nontender. Heart: S1S2, regular rate and rhythm without overt murmur Abdomen: Soft, nondistended, nontender. Negative for masses or hepatosplenomegaly. Negative for costovertebral tenderness. Pelvis: Stable nontender. Skin: Scattered bruising noted. Intact, warm, dry. No lesions or rashes noted. Extremities: Atraumatic, moves all extremities per self without difficulty or deficits, negative for cords or calf pain. Neurovascular unremarkable. Neuro: Awake, alert, oriented. Cranial nerves II through XII unremarkable. Cerebellum unremarkable. Motor and sensory unremarkable throughout. Exam nonfocal. Notes: GCS: 15, NIH 0. Lab work is unremarkable, appears to chronically be slightly anemic and elevated BUNs/creatinine. CT shows no acute intracranial abnormality identified. Chronic encephalomalacia in the right frontal lobe and right temporal lobe, unchanged from before. Mild age-related brain atrophy, white matter hypodensity consistent with chronic small vessel ischemic change, and intracranial atherosclerotic vascular calcifications. Dr Escobar was consulted on this case and is agreeable to keeping this patient for observation. Diagnostics: CBC, CMP, Troponin, EKG, Chest x-ray, Head CT Therapeutics: IV fluids, Zofran Impression: Dizziness Dyspnea History of Atrial Fibrillation Plan: Observation admission with telemetry. Definitive disposition and diagnosis as appropriate pending reevaluation and review of above. - Related Data Allergies Allergy/AdvReac Type Severity Reaction Status Date / Time No Known Allergies Allergy Verified 11/29/18 17:04 Home Meds: Home Meds Aspirin 81 mg PO DAILY 11/26/16 [History] Furosemide 40 mg PO BID 01/01/18 [History] Omeprazole 20 mg PO BID 01/01/18 [History] Sertraline HCl 25 mg PO DAILY 01/01/18 [History] Albuterol [Ventolin HFA] 2 puff INH Q4H PRN 03/09/18 [History] Clopidogrel [Plavix] 75 mg PO DAILY 03/09/18 [History] Past Medical History - Past Health History Medical/Surgical History: Denies Medical/Surgical History HEENT History: Reports: Cataract, Hard of Hearing, Other (See Below) Other HEENT History: has upper full denture and lower removal partial denture Cardiovascular History: Reports: Afib, Hypertension Respiratory History: Reports: COPD, Sleep Apnea, SOB Other Respiratory History: uses inhaler q4h, uses CPAP Gastrointestinal History: Reports: Diverticulosis, GERD, GI Bleed, Other (See Below) Other Gastrointestinal History: hx of Barretts esophagus, hx of bleeding from rectum while on Eliquis- received 12+ units of blood Musculoskeletal History: Reports: Arthritis, Back Pain, Chronic, Fracture Other Musculoskeletal History: hx of fx right arm, right wrist, skull, and clavicle Neurological History: Reports: Concussion, Head Trauma, Other (See Below) Other Neuro History: hx of fx skull, hx of motion sickness Psychiatric History: Reports: Anxiety Endocrine/Metabolic History: Reports: Obesity/BMI 30+ Hematologic History: Reports: Anemia, Anticoagulation Therapy, Blood Transfusion (s) Oncologic (Cancer) History: Reports: Other (See Below) 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 - Infectious Disease History Infectious Disease History: Reports: Chicken Pox, Measles, Mumps - Past Surgical History Head Surgeries/Procedures: Reports: None HEENT Surgical History: Reports: Cataract Surgery Other HEENT Surgeries/Procedures: cataract surgery April 2017 Cardiovascular Surgical History: Reports: Vascular Surgery, Other (See Below) Other Cardiovascular Surgeries/Procedures: Lariat procedure- resulting in open chest procedure, had recent angioplasty with "stent" in leg GI Surgical History: Reports: Bariatric Procedure, Hernia, Inguinal, Other (See Below) Other GI Surgeries/Procedures: I&D of buttocks Neurological Surgical History: Reports: None Musculoskeletal Surgical History: Reports: Hip Replacement, ORIF, Shoulder Surgery Other Musculoskeletal Surgeries/Procedures:: hx of left BERNARD x3 with other hip procedures, ORIF right wrist with tendon transfer Social & Family History - Family History Family Medical History: Noncontributory - Caffeine Use Caffeine Use: Reports: Coffee ED ROS GENERAL - Review of Systems Review Of Systems: ROS reveals no pertinent complaints other than HPI. ED EXAM, DIZZINESS - Physical Exam Exam: See Below (See dictation) Course - Vital Signs Last Recorded V/S: Last Vital Signs Temp 97.9 F 11/29/18 17:01 Pulse 99 11/29/18 18:45 Resp 18 11/29/18 18:45 BP 131/87 11/29/18 18:45 Pulse Ox 94 L 11/29/18 18:45 - Orders/Labs/Meds Orders: Active Orders 24 hr Category Date Time Status Admission Status [Patient Status] [ADT] Stat ADT 11/29/18 19:28 Active EKG Documentation Completion [RC] STAT Care 11/29/18 16:58 Active Sodium Chloride 0.9% [Normal Saline] 1,000 ml Med 11/29/18 17:18 Active IV STAT Sodium Chloride 0.9% [Saline Flush] Med 11/29/18 16:58 Active 10 ml FLUSH ASDIRECTED PRN Sodium Chloride 0.9% [Saline Flush] Med 11/29/18 16:58 Active 2.5 ml FLUSH ASDIRECTED PRN Saline Lock Insert [OM.PC] Stat Oth 11/29/18 16:58 Ordered Medication Orders Sodium Chloride (Normal Saline) 1,000 mls @ 100 mls/hr IV STAT ONE Stop: 11/30/18 03:17 Last Admin: 11/29/18 17:21 Dose: 100 mls/hr Sodium Chloride (Saline Flush) 10 ml FLUSH ASDIRECTED PRN PRN Reason: Keep Vein Open Sodium Chloride (Saline Flush) 2.5 ml FLUSH ASDIRECTED PRN PRN Reason: Keep Vein Open Labs: Laboratory Tests 11/29/18 11/29/18 11/29/18 Range/Units 17:15 17:15 18:44 WBC 7.30 (4.0-11.0) K/uL RBC 3.98 L (4.50-5.90) M/uL Hgb 10.2 L (13.0-17.0) g/dL Hct 32.2 L (38.0-50.0) % MCV 80.9 (80.0-98.0) fL MCH 25.6 L (27.0-32.0) pg MCHC 31.7 (31.0-37.0) g/dL RDW Std Deviation 54.4 (28.0-62.0) fl RDW Coeff of Lawrence 19 H (11.0-15.0) % Plt Count 308 (150-400) K/uL MPV 9.10 (7.40-12.00) fL Neut % (Auto) 78.7 (48.0-80.0) % Lymph % (Auto) 9.2 L (16.0-40.0) % [place] % (Auto) 11.1 (0.0-15.0) % Eos % (Auto) 0.5 (0.0-7.0) % Baso % (Auto) 0.5 (0.0-1.5) % Neut # (Auto) 5.7 (1.4-5.7) K/uL Lymph # (Auto) 0.7 (0.6-2.4) K/uL [place] # (Auto) 0.8 (0.0-0.8) K/uL Eos # (Auto) 0.0 (0.0-0.7) K/uL Baso # (Auto) 0.0 (0.0-0.1) K/uL Nucleated RBC % 0.0 /100WBC Nucleated RBCs # 0 K/uL Sodium 134 L (136-148) mmol/L Potassium 4.1 (3.5-5.1) mmol/L Chloride 99 (98-107) mmol/L Carbon Dioxide 19.3 L (21.0-32.0) mmol/L BUN 25 H (7.0-18.0) mg/dL Creatinine 1.6 H (0.8-1.3) mg/dL Est Cr Clr Drug Dosing 57.37 mL/min Estimated GFR (MDRD) 42.0 ml/min Glucose 104 (74-106) mg/dL Calcium 9.3 (8.5-10.1) mg/dL Total Bilirubin 0.7 (0.2-1.0) mg/dL AST 17 (15-37) IU/L ALT 22 (14-63) IU/L Alkaline Phosphatase 74 (46-116) U/L Troponin I < 0.050 (0.000-0.056) ng/mL Total Protein 7.4 (6.4-8.2) g/dL Albumin 3.4 (3.4-5.0) g/dL Globulin 4.0 (2.6-4.0) g/dL Albumin/Globulin Ratio 0.9 (0.9-1.6) Urine Color YELLOW Urine Appearance CLEAR Urine pH 5.5 (5.0-8.0) Ur Specific [place] 1.010 (1.001-1.035) Urine Protein NEGATIVE (NEGATIVE) mg/dL Urine Glucose (UA) NEGATIVE (NEGATIVE) mg/dL Urine Ketones 15 H (NEGATIVE) mg/dL Urine Occult Blood NEGATIVE (NEGATIVE) Urine Nitrite NEGATIVE (NEGATIVE) Urine Bilirubin NEGATIVE (NEGATIVE) Urine Urobilinogen 1.0 (<2.0) EU/dL Ur Leukocyte Esterase NEGATIVE (NEGATIVE) Meds: Medications Generic Name Dose Route Start Last Admin Trade Name Freq PRN Reason Stop Dose Admin Sodium Chloride 1,000 mls @ 100 mls/hr 11/29/18 17:18 11/29/18 17:21 Normal Saline IV 11/30/18 03:17 100 mls/hr STAT ONE Administration Sodium Chloride 10 ml 11/29/18 16:58 Saline Flush FLUSH ASDIRECTED PRN Keep Vein Open Sodium Chloride 2.5 ml 11/29/18 16:58 Saline Flush FLUSH ASDIRECTED PRN Keep Vein Open Discontinued Medications Generic Name Dose Route Start Last Admin Trade Name Freq PRN Reason Stop Dose Admin Ondansetron HCl 4 mg 11/29/18 16:58 11/29/18 17:21 Zofran IVPUSH 11/29/18 16:59 4 mg ONETIME ONE Administration Departure - Departure Time of Disposition: 19:50 Disposition: Refer to Observation Clinical Impression: Dizziness, History of atrial fibrillation Dyspnea Qualifiers: Dyspnea type: dyspnea on exertion Qualified Code(s): R06.09 - Other forms of dyspnea - Discharge Information Referrals: Sotero Peace MD [Primary Care Provider] - - My Orders Last 24 Hours: My Active Orders 11/29/18 16:58 EKG Documentation Completion [RC] STAT Sodium Chloride 0.9% [Saline Flush] 10 ml FLUSH ASDIRECTED PRN Sodium Chloride 0.9% [Saline Flush] 2.5 ml FLUSH ASDIRECTED PRN Saline Lock Insert [OM.PC] Stat 11/29/18 17:18 Sodium Chloride 0.9% [Normal Saline] 1,000 ml IV STAT 11/29/18 19:28 Admission Status [Patient Status] [ADT] Stat - Assessment/Plan Last 24 Hours: My Active Orders 11/29/18 16:58 EKG Documentation Completion [RC] STAT Sodium Chloride 0.9% [Saline Flush] 10 ml FLUSH ASDIRECTED PRN Sodium Chloride 0.9% [Saline Flush] 2.5 ml FLUSH ASDIRECTED PRN Saline Lock Insert [OM.PC] Stat 11/29/18 17:18 Sodium Chloride 0.9% [Normal Saline] 1,000 ml IV STAT 11/29/18 19:28 Admission Status [Patient Status] [ADT] Stat
[2018-11-29] MEDS ORDERED: Sodium Chloride 0.9% 1,000 ML IV ONE (17:18)
[2018-11-29 17:40] LABS: CHLORIDE,CL 99 mmol/L (98-107); SODIUM,NA 134 mmol/L (136-148)
--- NOTE | 2018-11-29 18:22 | CR ---
HISTORY: Vertigo. TECHNIQUE: One view of the chest. COMPARISON: 07/11/2017. FINDINGS: Prior sternotomy. Cardiac size and pulmonary vasculature within normal limits. There is no acute lung infiltrate or pulmonary edema. No pneumothorax or pleural effusion. Degenerative changes of the shoulders. IMPRESSION: No acute disease. Dictated by Seven Guidry MD @ 11/29/2018 6:19:22 PM Dictated by: Seven Guidry MD @ 11/29/2018 18:19:28 (Electronically Signed)
--- NOTE | 2018-11-29 19:29 | CT ---
INDICATION: vertigo CT HEAD WITHOUT CONTRAST TECHNIQUE: Multiple axial CT images were performed through the head without intravenous contrast administration. COMPARISON: 07/11/2017 CT head. FINDINGS: No acute intracranial hemorrhage is identified. No extra-axial collections are evident and there is no mass effect or midline shift. There is mild diffuse age-related brain atrophy. Ventricular size and configuration are within normal limits for the patient`s age. There are unchanged areas of chronic encephalomalacia in the right frontal lobe and right temporal lobe which may relate to prior trauma or previous infarcts. Ahuja-white differentiation elsewhere is within normal limits. There is stable patchy hypodensity in the periventricular white matter, a nonspecific finding which most likely reflects chronic small vessel ischemic change. Intracranial atherosclerotic vascular calcifications are noted. Osseous structures are within normal limits and no fractures are seen. Included portions of the paranasal sinuses and mastoid air cells are normally aerated. IMPRESSION: 1. No acute intracranial abnormality identified. 2. Chronic encephalomalacia in the right frontal lobe and right temporal lobe, unchanged from before. 3. Mild age-related brain atrophy, white matter hypodensity consistent with chronic small vessel ischemic change, and intracranial atherosclerotic vascular calcifications. ANABELL DEAN MD [employer] Dictated by Omar Dean MD @ 11/29/2018 7:28:48 PM Dictated by: Omar Dean MD @ 11/29/2018 19:29:21 (Electronically Signed)
[2018-11-29] MEDS ORDERED: Acetaminophen 325 MG Tab PO PRN (20:52)
[2018-11-29] MEDS ORDERED: Ondansetron 4 MG/2 ML SDV IVPUSH PRN (20:52)
[2018-11-29] MEDS ORDERED: oxyCODONE 5 MG Tab PO PRN (20:52)
[2018-11-30] MEDS ORDERED: Sodium Chloride 0.9% 1,000 ML IV SCH (06:00)
[2018-11-30] MEDS ORDERED: Albuterol 8 GM Inhaler INH PRN (07:04)
--- NOTE | 2018-11-30 07:04 | PCM.HP ---
H&P History of Present Illness - General Date of Service: 11/30/18 Admit Problem/Dx: Admission Diagnosis/Problem Admission Diagnosis/Problem Dizziness Source of Information: Patient History Limitations: Reports: No Limitations - History of Present Illness Initial Comments - Free Text/Narative: The patient is a 78-year-old gentleman who has a chronic history of dizziness, shortness of breath due to COPD and he had presented to the emergency department with these complaints that it got worse. The patient had some dizziness that had resulted in nausea. The patient recently had visited exhibits coordinator in [place] where a COPD. The patient also reports that he has been having worsening ambulation as well as more frequent falls. The patient also had been started on Flomax recently due to his frequent urination at night. The patient has denied chest pain. With the patient shortness of breath he does not use oxygen at home. The patient feels better now and he has had fluid resuscitation. Onset of Symptoms: Reports: Gradual Duration of Symptoms: Reports: Day(s): Location: Reports: Generalized Quality: Reports: Same as Previous Episode Severity: Mild Improves with: Reports: None Worsens with: Reports: None Context: Reports: Other (New medication) Associated Symptoms: Reports: No Other Symptoms no pain Pain Score (Numeric/FACES): 0 - Related Data Allergies/Adverse Reactions: Allergies Allergy/AdvReac Type Severity Reaction Status Date / Time No Known Allergies Allergy Verified 11/29/18 17:04 Home Medications: Home Meds Aspirin 81 mg PO DAILY 11/26/16 [History] Furosemide 40 mg PO BID 01/01/18 [History] Omeprazole 20 mg PO BID 01/01/18 [History] Sertraline HCl 25 mg PO DAILY 01/01/18 [History] Albuterol [Ventolin HFA] 2 puff INH Q4H PRN 03/09/18 [History] Clopidogrel [Plavix] 75 mg PO DAILY 03/09/18 [History] Past Medical History - Past Health History Medical/Surgical History: Denies Medical/Surgical History HEENT History: Reports: Cataract, Hard of Hearing, Other (See Below) Other HEENT History: has upper full denture and lower removal partial denture Cardiovascular History: Reports: Afib, Hypertension Respiratory History: Reports: COPD, Sleep Apnea, SOB Other Respiratory History: uses inhaler q4h, uses CPAP Gastrointestinal History: Reports: Diverticulosis, GERD, GI Bleed, Other (See Below) Other Gastrointestinal History: hx of Barretts esophagus, hx of bleeding from rectum while on Eliquis- received 12+ units of blood Genitourinary History: Reports: BPH Musculoskeletal History: Reports: Arthritis, Back Pain, Chronic, Fracture Other Musculoskeletal History: hx of fx right arm, right wrist, skull, and clavicle Neurological History: Reports: Concussion, Head Trauma, Other (See Below) Other Neuro History: hx of fx skull, hx of motion sickness Psychiatric History: Reports: Anxiety Endocrine/Metabolic History: Reports: Obesity/BMI 30+ Hematologic History: Reports: Anemia, Anticoagulation Therapy, Blood Transfusion (s) Immunologic History: Reports: None Oncologic (Cancer) History: Reports: Other (See Below) 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 Dermatologic History: Reports: None - Infectious Disease History Infectious Disease History: Reports: Chicken Pox, Measles, Mumps - Past Surgical History Head Surgeries/Procedures: Reports: None HEENT Surgical History: Reports: Cataract Surgery Other HEENT Surgeries/Procedures: cataract surgery April 2017 Cardiovascular Surgical History: Reports: Vascular Surgery, Other (See Below) Other Cardiovascular Surgeries/Procedures: Lariat procedure- resulting in open chest procedure, had recent angioplasty with "stent" in leg GI Surgical History: Reports: Bariatric Procedure, Hernia, Inguinal, Other (See Below) Other GI Surgeries/Procedures: I&D of buttocks Male Surgical History: Reports: None Neurological Surgical History: Reports: None Musculoskeletal Surgical History: Reports: Hip Replacement, ORIF, Shoulder Surgery Other Musculoskeletal Surgeries/Procedures:: hx of left BERNARD x3 with other hip procedures, ORIF right wrist with tendon transfer Dermatological Surgical History: Reports: None Social & Family History - Family History Family Medical History: Noncontributory - Tobacco Use Smoking Status *Q: Former Smoker Used Tobacco, but Quit: Yes Month/Year Tobacco Last Used: 20 Second Hand Smoke Exposure: No - Caffeine Use Caffeine Use: Reports: Coffee - Alcohol Use Number of Drinks Per Day: 2 Date of Last Drink: 11/24/18 - Recreational Drug Use Recreational Drug Use: No - Living Situation & Occupation Living situation: Reports: Single Occupation: Retired H&P Review of Systems - Review of Systems: Review Of Systems: See Below General: Reports: Weakness, Fatigue HEENT: Reports: No Symptoms Pulmonary: Reports: Shortness of Breath Cardiovascular: Reports: Lightheadedness Gastrointestinal: Reports: No Symptoms Genitourinary: Reports: No Symptoms Musculoskeletal: Reports: No Symptoms Skin: Reports: No Symptoms Psychiatric: Reports: No Symptoms Neurological: Reports: Dizziness Hematologic/Lymphatic: Reports: No Symptoms Immunologic: Reports: No Symptoms Exam - Exam Exam: See Below - Vital Signs Vital Signs: Last Vital Signs Temp 36.3 C 11/30/18 04:42 Pulse 90 11/30/18 04:42 Resp 17 11/30/18 04:42 BP 114/64 11/30/18 04:42 Pulse Ox 93 L 11/30/18 04:42 Weight: 105.687 kg - Exam Quality Assessment: No: Supplemental Oxygen General: Alert, Oriented, Cooperative HEENT: Conjunctiva Clear, EACs Clear, EOMI, Nares Patent, PERRLA. No: Mucosa Moist & [place] (Dry) Neck: Supple, Trachea Midline Lungs: Clear to Auscultation, Normal Respiratory Effort Cardiovascular: Regular Rate, Irregular Rhythm GI/Abdominal Exam: Normal Bowel Sounds, Soft, No Distention Back Exam: Normal Inspection, Full Range of Motion Extremities: Normal Inspection, No Pedal Edema Skin: Warm, Dry, Intact Neurological: Cranial Nerves Intact Neuro Extensive - Mental Status: Alert, Oriented x3 Psychiatric: Alert, Normal Affect, Normal Mood - Patient Data Lab Results Last 24 hrs: Laboratory Results - last 24 hr 11/29/18 11/29/18 11/29/18 Range/Units 17:15 17:15 18:44 WBC 7.30 (4.0-11.0) K/uL RBC 3.98 L (4.50-5.90) M/uL Hgb 10.2 L (13.0-17.0) g/dL Hct 32.2 L (38.0-50.0) % MCV 80.9 (80.0-98.0) fL MCH 25.6 L (27.0-32.0) pg MCHC 31.7 (31.0-37.0) g/dL RDW Std Deviation 54.4 (28.0-62.0) fl RDW Coeff of [place] 19 H (11.0-15.0) % Plt Count 308 (150-400) K/uL MPV 9.10 (7.40-12.00) fL Neut % (Auto) 78.7 (48.0-80.0) % Lymph % (Auto) 9.2 L (16.0-40.0) % Rhea % (Auto) 11.1 (0.0-15.0) % Eos % (Auto) 0.5 (0.0-7.0) % Baso % (Auto) 0.5 (0.0-1.5) % Neut # (Auto) 5.7 (1.4-5.7) K/uL Lymph # (Auto) 0.7 (0.6-2.4) K/uL Rhea # (Auto) 0.8 (0.0-0.8) K/uL Eos # (Auto) 0.0 (0.0-0.7) K/uL Baso # (Auto) 0.0 (0.0-0.1) K/uL Add Manual Diff Neutrophils % (Manual) (48.0-80.0) % Band Neutrophils % % Lymphocytes % (Manual) (16.0-40.0) % Monocytes % (Manual) (0.0-15.0) % Eosinophils % (Manual) (0.0-7.0) % Metamyelocytes % % Nucleated RBC % 0.0 /100WBC Absolute Seg Neuts (1.4-5.7) Band Neutrophils # Lymphocytes # (Manual) (0.6-2.4) Monocytes # (Manual) (0.0-0.8) Eosinophils # (Manual) (0.0-0.7) Absolute Metamyelocyte Nucleated RBCs # 0 K/uL Sodium 134 L (136-148) mmol/L Potassium 4.1 (3.5-5.1) mmol/L Chloride 99 (98-107) mmol/L Carbon Dioxide 19.3 L (21.0-32.0) mmol/L BUN 25 H (7.0-18.0) mg/dL Creatinine 1.6 H (0.8-1.3) mg/dL Est Cr Clr Drug Dosing 57.37 mL/min Estimated GFR (MDRD) 42.0 ml/min Glucose 104 (74-106) mg/dL Calcium 9.3 (8.5-10.1) mg/dL Total Bilirubin 0.7 (0.2-1.0) mg/dL AST 17 (15-37) IU/L ALT 22 (14-63) IU/L Alkaline Phosphatase 74 (46-116) U/L Troponin I < 0.050 (0.000-0.056) ng/mL Total Protein 7.4 (6.4-8.2) g/dL Albumin 3.4 (3.4-5.0) g/dL Globulin 4.0 (2.6-4.0) g/dL Albumin/Globulin Ratio 0.9 (0.9-1.6) Urine Color YELLOW Urine Appearance CLEAR Urine pH 5.5 (5.0-8.0) Ur Specific [place] 1.010 (1.001-1.035) Urine Protein NEGATIVE (NEGATIVE) mg/dL Urine Glucose (UA) NEGATIVE (NEGATIVE) mg/dL Urine Ketones 15 H (NEGATIVE) mg/dL Urine Occult Blood NEGATIVE (NEGATIVE) Urine Nitrite NEGATIVE (NEGATIVE) Urine Bilirubin NEGATIVE (NEGATIVE) Urine Urobilinogen 1.0 (<2.0) EU/dL Ur Leukocyte Esterase NEGATIVE (NEGATIVE) 11/30/18 11/30/18 Range/Units 04:47 04:47 WBC 4.74 (4.0-11.0) K/uL RBC 3.45 L (4.50-5.90) M/uL Hgb 8.7 L (13.0-17.0) g/dL Hct 28.0 L (38.0-50.0) % MCV 81.2 (80.0-98.0) fL MCH 25.2 L (27.0-32.0) pg MCHC 31.1 (31.0-37.0) g/dL RDW Std Deviation 55.2 (28.0-62.0) fl RDW Coeff of [place] 19 H (11.0-15.0) % Plt Count 297 (150-400) K/uL MPV 9.20 (7.40-12.00) fL Neut % (Auto) (48.0-80.0) % Lymph % (Auto) (16.0-40.0) % Rhea % (Auto) (0.0-15.0) % Eos % (Auto) (0.0-7.0) % Baso % (Auto) (0.0-1.5) % Neut # (Auto) (1.4-5.7) K/uL Lymph # (Auto) (0.6-2.4) K/uL Rhea # (Auto) (0.0-0.8) K/uL Eos # (Auto) (0.0-0.7) K/uL Baso # (Auto) (0.0-0.1) K/uL Add Manual Diff YES Neutrophils % (Manual) 66 (48.0-80.0) % Band Neutrophils % 5 % Lymphocytes % (Manual) 22 (16.0-40.0) % Monocytes % (Manual) 4 (0.0-15.0) % Eosinophils % (Manual) 2 (0.0-7.0) % Metamyelocytes % 1 % Nucleated RBC % 0.0 /100WBC Absolute Seg Neuts 3.1 (1.4-5.7) Band Neutrophils # 0.2 Lymphocytes # (Manual) 1.0 (0.6-2.4) Monocytes # (Manual) 0.2 (0.0-0.8) Eosinophils # (Manual) 0.1 (0.0-0.7) Absolute Metamyelocyte 0 Nucleated RBCs # 0 K/uL Sodium 136 (136-148) mmol/L Potassium 3.6 (3.5-5.1) mmol/L Chloride 103 (98-107) mmol/L Carbon Dioxide 22.5 (21.0-32.0) mmol/L BUN 23 H (7.0-18.0) mg/dL Creatinine 1.5 H (0.8-1.3) mg/dL Est Cr Clr Drug Dosing 47.19 mL/min Estimated GFR (MDRD) 45.3 ml/min Glucose 83 (74-106) mg/dL Calcium 8.7 (8.5-10.1) mg/dL Total Bilirubin (0.2-1.0) mg/dL AST (15-37) IU/L ALT (14-63) IU/L Alkaline Phosphatase (46-116) U/L Troponin I (0.000-0.056) ng/mL Total Protein (6.4-8.2) g/dL Albumin (3.4-5.0) g/dL Globulin (2.6-4.0) g/dL Albumin/Globulin Ratio (0.9-1.6) Urine Color Urine Appearance Urine pH (5.0-8.0) Ur Specific [place] (1.001-1.035) Urine Protein (NEGATIVE) mg/dL Urine Glucose (UA) (NEGATIVE) mg/dL Urine Ketones (NEGATIVE) mg/dL Urine Occult Blood (NEGATIVE) Urine Nitrite (NEGATIVE) Urine Bilirubin (NEGATIVE) Urine Urobilinogen (<2.0) EU/dL Ur Leukocyte Esterase (NEGATIVE) Result Diagrams: 11/30/18 04:47 11/30/18 04:47 - Problem List (1) Dehydration SNOMED Code(s): 87088749 ICD Code: E86.0 - DEHYDRATION Status: Resolved Priority: High Current Visit: Yes (2) Falls frequently SNOMED Code(s): 124698241 ICD Code: R29.6 - REPEATED FALLS Status: Acute Priority: High Current Visit: Yes (3) COPD not affecting current episode of care SNOMED Code(s): 90312207 ICD Code: J44.9 - CHRONIC OBSTRUCTIVE PULMONARY DISEASE, UNSPECIFIED Status : Chronic Priority: Medium Current Visit: Yes (4) Dizziness SNOMED Code(s): 259776208, 988289378 ICD Code: R42 - DIZZINESS AND GIDDINESS Status: Chronic Priority: High Current Visit: Yes (5) History of atrial fibrillation SNOMED Code(s): 235321208 ICD Code: Z86.79 - PERSONAL HISTORY OF OTHER DISEASES OF THE CIRCULATORY SYSTEM Status: Acute Priority: High Current Visit: Yes Problem List Initiated/Reviewed/Updated: Yes Orders Last 24hrs: Active Orders 24 hr Category Date Time Status Admission Status [Patient Status] [ADT] Stat ADT 11/29/18 19:28 Active EKG Documentation Completion [RC] STAT Care 11/29/18 16:58 Active Telemetry Monitoring [Cardiac Monitoring] [RC] Q8H Care 11/29/18 20:51 Active Heart Healthy Diet [DIET] Diet 11/30/18 Breakfast Active Acetaminophen [Tylenol] Med 11/29/18 20:52 Active 650 mg PO Q6H PRN Ondansetron [Zofran] Med 11/29/18 20:52 Active 4 mg IVPUSH Q6H PRN Sodium Chloride 0.9% [Normal Saline] 1,000 ml Med 11/30/18 06:00 Active IV ASDIRECTED Sodium Chloride 0.9% [Saline Flush] Med 11/29/18 16:58 Active 10 ml FLUSH ASDIRECTED PRN Sodium Chloride 0.9% [Saline Flush] Med 11/29/18 16:58 Active 2.5 ml FLUSH ASDIRECTED PRN oxyCODONE Med 11/29/18 20:52 Active 5 mg PO Q4H PRN Saline Lock Insert [OM.PC] Stat Oth 11/29/18 16:58 Ordered Medication Orders Acetaminophen (Tylenol) 650 mg PO Q6H PRN PRN Reason: Pain (moderate 4-6) Sodium Chloride (Normal Saline) 1,000 mls @ 75 mls/hr IV ASDIRECTED MATTHEW Ondansetron HCl (Zofran) 4 mg IVPUSH Q6H PRN PRN Reason: Nausea/Vomiting Oxycodone HCl (Oxycodone) 5 mg PO Q4H PRN PRN Reason: Pain (severe 7-10) Sodium Chloride (Saline Flush) 10 ml FLUSH ASDIRECTED PRN PRN Reason: Keep Vein Open Sodium Chloride (Saline Flush) 2.5 ml FLUSH ASDIRECTED PRN PRN Reason: Keep Vein Open Assessment/Plan Comment:: The patient is a 78-year-old gentleman who had been admitted to hospitalization his observation secondary to dizziness. Patient does have chronic dizziness however it had been exacerbated by new medication likely Flomax. The patient says that he feels better today. He does feel somewhat weak and fatigued and he feels that he is short of breath although his oxygen saturations have been good. Physical therapy has evaluated the patient as well and believes it he is okay to go home. It has been recommended that the patient have home health starting Monday, December 03, 2018. This is been ordered predominantly because of the patient's history of falls as well as flights of stairs in his apartment. With regards to the patient's symptom leaving his house would be somewhat difficult for him and his dizziness is a concern while at home. The patient will be following with Dr. Sotero Peace and Dr. Peace will also continue to manage his outpatient plan. The patient for now is to continue with his current diet as tolerated. Continue with activity as tolerated. The patient otherwise has been hemodynamically stable and he has been discharged from acute hospitalization with recommendations listed above. This history and physical will constitute a discharge summary.
[2018-11-30] MEDS ORDERED: Docusate Sodium 100 MG Cap PO PRN (07:06)
[2018-11-30] MEDS ORDERED: Heparin Sodium 5,000 Units/ML Vial SUBCUT SCH (07:15)
[2018-11-30] MEDS ORDERED: Omeprazole 20 MG Cap.CR PO SCH (07:30)
[2018-11-30] MEDS ORDERED: Clopidogrel 75 MG Tab PO SCH (09:00)
[2018-11-30] MEDS ORDERED: Furosemide 20 MG Tab PO SCH (09:00)
[2018-11-30] MEDS ORDERED: Sertraline 50 MG Tab PO SCH (09:00)
[2018-11-30] MEDS ORDERED: Aspirin 81 MG Tab.Chew PO SCH (09:00)
[2018-11-30 11:34] VITALS: BP 136/89
== END 2018-11-30 14:25 | disposition home health service (06) ==
LOC: MW.ED 16:56 → MW.MS 20:32
PROVIDERS: ADMIT Internal Medicine; ATTEND Internal Medicine
DX: R42 Dizziness and giddiness (principal); E86.0 Dehydration; J44.9 Chronic obstructive pulmonary disease, unspecified; R29.6 Repeated falls; Z86.79 Personal history of other diseases of the circulatory system; I10 Essential (primary) hypertension; G47.30 Sleep apnea, unspecified; D64.9 Anemia, unspecified; K21.9 Gastro-esophageal reflux disease without esophagitis; F41.9 Anxiety disorder, unspecified; Z87.891 Personal history of nicotine dependence; Z79.01 Long term (current) use of anticoagulants; Z79.82 Long term (current) use of aspirin; Z79.899 Other long term (current) drug therapy; Z98.890 Other specified postprocedural states; Z99.89 Dependence on other enabling machines and devices
CPT/HCPCS: 36415; 70450; 71045; 80048; 80053; 81003; 84484; 85025; 93005; 96361; 96374; 97161; 97530; 99285; A9270; J1644; J2405; J7040; 96372; 99284; G0378

== ENCOUNTER 2019-02-04 19:35 | Emergency (ER) | payer MEDICARE ==
--- NOTE | 2019-02-04 19:51 | EDM.PDOC ---
ED HPI GENERAL MEDICAL PROBLEM - General Chief Complaint: Trauma Stated Complaint: ARM INJURY Time Seen by Provider: 02/04/19 19:46 Source of Information: Reports: Patient History Limitations: Reports: No Limitations - History of Present Illness INITIAL COMMENTS - FREE TEXT/NARRATIVE: HISTORY AND PHYSICAL: History of present illness: Patient is a 78-year-old male presents to the ED with complaint of fall. Patient states that he was in his garage when he tripped over a cord falling backwards. He states he hit his left arm and the left side of his head/eyebrow on a bench on the way down. He denies chest pain, hip pain, headache, shortness of breath. Patient walked in to the ED without difficulty. He recently stopped taking his Plavix 2 days ago, he takes baby aspirin daily. Trauma alert called. He is UTD on tetanus. Review of systems: As per history of present illness and below otherwise all systems reviewed and negative. Past medical history: As per history of present illness and as reviewed below otherwise noncontributory. Surgical history: As per history of present illness and as reviewed below otherwise noncontributory. Social history: No reported history of drug or alcohol abuse. Family history: As per history of present illness and as reviewed below otherwise noncontributory. Physical exam: General: Patient sitting comfortably in no acute distress and nontoxic appearing HEENT: There is a laceration to the left lateral eyebrow. normocephalic, pupils reactive, negative for conjunctival pallor or scleral icterus, mucous membranes moist, throat clear, neck supple, nontender, trachea midline. No meningeal signs. Lungs: Clear to auscultation, breath sounds equal bilaterally, chest nontender. Heart: S1S2, regular, negative for clicks, rubs, or overt murmur. Abdomen: Soft, nondistended, nontender. Negative for masses or hepatosplenomegaly. Negative for costovertebral tenderness. No rigidity, rebound , guarding. Pelvis: Stable nontender. Genitourinary: Deferred. Rectal: Deferred. Extremities: skin tear to the left forearm with surrounding ecchymosis. negative for cords or calf pain. Neurovascular unremarkable. Neuro: Awake, alert, oriented. Cranial nerves II through XII unremarkable. Cerebellum unremarkable. Motor and sensory unremarkable throughout. Exam nonfocal. Notes: Diagnostics: Head CT, left forearm Therapeutics: [] Prescriptions: Impression: Fall, head injury, forearm injury, skin tear Plan: Wound care as instructed Follow up with primary care provider Return to ED as needed as discussed Definitive disposition and diagnosis as appropriate pending reevaluation and review of above. - Related Data Allergies Allergy/AdvReac Type Severity Reaction Status Date / Time No Known Allergies Allergy Verified 02/04/19 19:44 Home Meds: Home Meds Aspirin 81 mg PO DAILY 11/26/16 [History] Omeprazole 20 mg PO BID 01/01/18 [History] Sertraline HCl 25 mg PO DAILY 01/01/18 [History] Albuterol [Ventolin HFA] 2 puff INH Q4H PRN 03/09/18 [History] Clopidogrel [Plavix] 75 mg PO DAILY 03/09/18 [History] Past Medical History - Past Health History Medical/Surgical History: Denies Medical/Surgical History HEENT History: Reports: Cataract, Hard of Hearing, Other (See Below) Other HEENT History: has upper full denture and lower removal partial denture Cardiovascular History: Reports: Afib, Hypertension Respiratory History: Reports: COPD, Sleep Apnea, SOB Other Respiratory History: uses inhaler q4h, uses CPAP Gastrointestinal History: Reports: Diverticulosis, GERD, GI Bleed, Other (See Below) Other Gastrointestinal History: hx of Barretts esophagus, hx of bleeding from rectum while on Eliquis- received 12+ units of blood Genitourinary History: Reports: BPH Musculoskeletal History: Reports: Arthritis, Back Pain, Chronic, Fracture Other Musculoskeletal History: hx of fx right arm, right wrist, skull, and clavicle Neurological History: Reports: Concussion, Head Trauma, Other (See Below) Other Neuro History: hx of fx skull, hx of motion sickness Psychiatric History: Reports: Anxiety Endocrine/Metabolic History: Reports: Obesity/BMI 30+ Hematologic History: Reports: Anemia, Anticoagulation Therapy, Blood Transfusion (s) Immunologic History: Reports: None Oncologic (Cancer) History: Reports: Other (See Below) 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 Dermatologic History: Reports: None - Infectious Disease History Infectious Disease History: Reports: Chicken Pox, Measles, Mumps - Past Surgical History Head Surgeries/Procedures: Reports: None HEENT Surgical History: Reports: Cataract Surgery Other HEENT Surgeries/Procedures: cataract surgery April 2017 Cardiovascular Surgical History: Reports: Vascular Surgery, Other (See Below) Other Cardiovascular Surgeries/Procedures: Lariat procedure- resulting in open chest procedure, had recent angioplasty with "stent" in leg GI Surgical History: Reports: Bariatric Procedure, Hernia, Inguinal, Other (See Below) Other GI Surgeries/Procedures: I&D of buttocks Male Surgical History: Reports: None Neurological Surgical History: Reports: None Musculoskeletal Surgical History: Reports: Hip Replacement, ORIF, Shoulder Surgery Other Musculoskeletal Surgeries/Procedures:: hx of left BERNARD x3 with other hip procedures, ORIF right wrist with tendon transfer Dermatological Surgical History: Reports: None Social & Family History - Family History Family Medical History: Noncontributory - Caffeine Use Caffeine Use: Reports: Coffee - Living Situation & Occupation Living situation: Reports: Single Occupation: Retired Review of Systems - Review of Systems Review Of Systems: ROS reveals no pertinent complaints other than HPI. ED EXAM, GENERAL - Physical Exam Exam: See Below (see dictation) Course - Vital Signs Last Recorded V/S: Last Vital Signs Temp 96.1 F 02/04/19 19:39 Pulse 91 02/04/19 21:00 Resp 18 02/04/19 21:00 BP 143/80 H 02/04/19 21:00 Pulse Ox 97 02/04/19 21:00 - Orders/Labs/Meds Orders: Active Orders 24 hr Category Date Time Status Admission Status [Patient Status] [ADT] Stat ADT 02/04/19 20:37 Active Departure - Departure Time of Disposition: 20:52 Disposition: Home, Self-Care 01 Condition: Good Clinical Impression: Fall, Head injury, Forearm injury - Discharge Information Instructions: Fall Prevention in the Home, Adult, [id number], Contusion, Easy -to-Read, Head Injury, Adult, [id number] Referrals: PCP,Unknown [Primary Care Provider] - Forms: ED Department Discharge Additional Instructions: The following information is given to patients seen in the emergency department who are being discharged to home. This information is to outline your options for follow-up care. We provide all patients seen in our emergency department with a follow-up referral. The need for follow-up, as well as the timing and circumstances, are variable depending upon the specifics of your emergency department visit. If you don't have a primary care physician on staff, we will provide you with a referral. We always advise you to contact your personal physician following an emergency department visit to inform them of the circumstance of the visit and for follow-up with them and/or the need for any referrals to a consulting specialist. The emergency department will also refer you to a specialist when appropriate. This referral assures that you have the opportunity for follow-up care with a specialist. All of these measure are taken in an effort to provide you with optimal care, which includes your follow-up. Under all circumstances we always encourage you to contact your private physician who remains a resource for coordinating your care. When calling for follow-up care, please make the office aware that this follow-up is from your recent emergency room visit. If for any reason you are refused follow-up, please contact the [facility] Emergency Department at and asked to speak to the emergency department charge nurse. [facility] [address] [place] [address] [place] [address] Wound care as instructed Follow up with primary care provider Return to ED as needed as discussed - My Orders Last 24 Hours: My Active Orders 02/04/19 20:37 Admission Status [Patient Status] [ADT] Stat - Assessment/Plan Last 24 Hours: My Active Orders 02/04/19 20:37 Admission Status [Patient Status] [ADT] Stat
--- NOTE | 2019-02-04 20:45 | CT ---
INDICATION: Stumbled and head injury from fall, stopped blood thinners 2 days ago TECHNIQUE: CT Head without i.v. contrast. COMPARISON: None FINDINGS: CSF space: Unremarkable for age. Brain: No evidence of mass, acute infarction or hemorrhage is seen. No mass-effect or midline shift is seen. Mild diffuse cortical atrophy is noted. Small focus of encephalomalacia is present within the right frontal lobe. Calvarium: The visualized paranasal sinuses are well aerated. The mastoid air cells are clear. The patient is status post bilateral cataract removal. The calvarium is unremarkable in appearance with no fractures identified. IMPRESSION: 1. No evidence of acute infarction, intracranial hemorrhage, or mass-effect seen. Dictated by Collins Chicas MD @ 02/04/2019 8:43:28 PM Please note that all CT scans at this facility use dose modulation, iterative reconstruction, and/or weight-based dosing when appropriate to reduce radiation dose to as low as reasonably achievable. Dictated by: Collins Chicas MD @ 02/04/2019 20:43:34 (Electronically Signed)
--- NOTE | 2019-02-04 20:47 | CR ---
INDICATION: Forearm injury from fall TECHNIQUE: Forearm radiograph 2 views right COMPARISON: None FINDINGS: Bone: No acute fractures or aggressive bone lesions are identified. Old fracture deformity of the distal radius is suspected. Moderate diffuse osteopenia noted. Joint: The visualized radiocarpal and elbow joints are unremarkable, but the elbow joint is not profiled. If there is pain or tenderness in this region, dedicated views of the elbow are recommended. Soft tissue: Moderate vascular soft tissue calcifications are seen. No radiopaque foreign bodies are seen. IMPRESSION: 1. No acute osseous injuries or abnormalities are noted. Dictated by Collins Chicas MD @ 02/04/2019 8:46:21 PM Dictated by: Collins Chicas MD @ 02/04/2019 20:46:24 (Electronically Signed)
[2019-02-04 21:07] VITALS: BP 143/80
== END 2019-02-04 21:07 | disposition home or self-care (01) ==
LOC: MW.ED 19:35
DX: S01.81XA Laceration without foreign body of other part of head, initial encounter (principal); S51.812A Laceration without foreign body of left forearm, initial encounter; I10 Essential (primary) hypertension; I48.91 Unspecified atrial fibrillation; J44.9 Chronic obstructive pulmonary disease, unspecified; K21.9 Gastro-esophageal reflux disease without esophagitis; F41.9 Anxiety disorder, unspecified; M19.90 Unspecified osteoarthritis, unspecified site; Z86.2 Personal history of diseases of the blood and blood-forming organs and certain disorders involving the immune mechanism; Z79.82 Long term (current) use of aspirin; Z79.01 Long term (current) use of anticoagulants; Z79.02 Long term (current) use of antithrombotics/antiplatelets; Z79.899 Other long term (current) drug therapy; W01.0XXA Fall on same level from slipping, tripping and stumbling without subsequent striking against object, initial encounter
CPT/HCPCS: 70450; 70450-26; 73090-26-LT; 73090-LT; 99284-25

== ENCOUNTER 2019-11-26 14:12 | Emergency (ER) | payer MEDICARE ==
[2019-11-26] MEDS ORDERED: Doxycycline 100 MG Cap PO ONE (14:43)
--- NOTE | 2019-11-26 15:15 | EDM.PDOC ---
ED HPI GENERAL MEDICAL PROBLEM - General Chief Complaint: Bite:Animal, Insect Stated Complaint: TICK ON LEG Time Seen by Provider: 11/26/19 14:22 - History of Present Illness INITIAL COMMENTS - FREE TEXT/NARRATIVE: History of present illness: 79-year-old male presenting with left saba embedded tick. He has apparently been doing physical therapy and today when he was at the physical therapist, they looked at the leg and saw that there was uptake and told him he needed to go to the emergency room. He has noticed the leg looking red and with a spot that he did not realize was a tick for about 2 to 3 days. Denies any pain. Denies fevers or chills. Denies any chest pains or difficulty breathing. Review of systems: As per history of present illness and below otherwise all systems reviewed and negative. Past medical history: As per history of present illness and as reviewed below otherwise noncontributory. Surgical history: As per history of present illness and as reviewed below otherwise noncontributory. Social history: No reported history of drug or alcohol abuse. Family history: As per history of present illness and as reviewed below otherwise noncontributory. Physical exam: GEN: no acute distress, well appearing HEENT: Atraumatic, normocephalic, mucous membranes moist, Neck: supple, nontender, trachea midline. Lungs: No respiratory distress. Heart: RRR Abdomen: Soft, nondistended, nontender. Back: nontender Extremities: Atraumatic. Neurovascularly intact. Neuro: Awake, alert, oriented. Neuro Exam nonfocal. Skin: warm, dry, left anterior saba with embedded tick surrounded by erythematous lesion. Erythema appears diffuse and not target or bull's-eye shape lesion Diagnostics: [] Therapeutics: [] MDM: Impression: [] Plan: Possible Lyme versus cellulitis. Tick is embedded. Will attempt tip removal. We will also check Lyme titer. Will give doxycycline for 10 days. Definitive disposition and diagnosis as appropriate pending reevaluation and review of above. Left LEg Pain Score (Numeric/FACES): 3 - Related Data Allergies Allergy/AdvReac Type Severity Reaction Status Date / Time No Known Allergies Allergy Verified 11/26/19 14:30 Home Meds: Home Meds Aspirin 81 mg PO DAILY 11/26/16 [History] Omeprazole 20 mg PO BID 01/01/18 [History] Sertraline HCl 25 mg PO DAILY 01/01/18 [History] Albuterol [Ventolin HFA] 2 puff INH Q4H PRN 03/09/18 [History] Doxycycline [Vibramycin] 100 mg PO BID #20 cap 11/26/19 [Rx] Past Medical History - Past Health History Medical/Surgical History: Denies Medical/Surgical History HEENT History: Reports: Cataract, Hard of Hearing, Other (See Below) Other HEENT History: has upper full denture and lower removal partial denture Cardiovascular History: Reports: Afib, Hypertension Respiratory History: Reports: COPD, Sleep Apnea, SOB Other Respiratory History: uses inhaler q4h, uses CPAP Gastrointestinal History: Reports: Diverticulosis, GERD, GI Bleed, Other (See Below) Other Gastrointestinal History: hx of Barretts esophagus, hx of bleeding from rectum while on Eliquis- received 12+ units of blood Genitourinary History: Reports: BPH Musculoskeletal History: Reports: Arthritis, Back Pain, Chronic, Fracture Other Musculoskeletal History: hx of fx right arm, right wrist, skull, and clavicle Neurological History: Reports: Concussion, Head Trauma, Other (See Below) Other Neuro History: hx of fx skull, hx of motion sickness Psychiatric History: Reports: Anxiety Endocrine/Metabolic History: Reports: Obesity/BMI 30+ Hematologic History: Reports: Anemia, Anticoagulation Therapy, Blood Transfusion (s) Immunologic History: Reports: None Oncologic (Cancer) History: Reports: Other (See Below) 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 Dermatologic History: Reports: None - Infectious Disease History Infectious Disease History: Reports: None - Past Surgical History Head Surgeries/Procedures: Reports: None HEENT Surgical History: Reports: Cataract Surgery Other HEENT Surgeries/Procedures: cataract surgery April 2017 Cardiovascular Surgical History: Reports: Vascular Surgery, Other (See Below) Other Cardiovascular Surgeries/Procedures: Lariat procedure- resulting in open chest procedure, had recent angioplasty with "stent" in leg GI Surgical History: Reports: Bariatric Procedure, Hernia, Inguinal, Other (See Below) Other GI Surgeries/Procedures: I&D of buttocks Male Surgical History: Reports: None Neurological Surgical History: Reports: None Musculoskeletal Surgical History: Reports: Hip Replacement, ORIF, Shoulder Surgery Other Musculoskeletal Surgeries/Procedures:: hx of left BERNARD x3 with other hip procedures, ORIF right wrist with tendon transfer Dermatological Surgical History: Reports: None Social & Family History - Family History Family Medical History: Noncontributory - Tobacco Use Smoking Status *Q: Never Smoker - Caffeine Use Caffeine Use: Reports: None - Recreational Drug Use Recreational Drug Use: No - Living Situation & Occupation Living situation: Reports: Single Occupation: Retired ED ROS GENERAL - Review of Systems Review Of Systems: See Below (See dictation) ED EXAM, ANIMAL BITE - Physical Exam Exam: See Below (See dictation) ED ANIMAL BITE PROCEDURES - Foreign Body Removal Consent Obtained: Patient Performing Doctor:: Destinee Curry Foreign Body Other Location Comment:: TICK, left anterior/lower saba Anesthesia Type: None Findings:: FUll TICK body including mouth apparatus was removed Complications:: No Comments:: Did removal with Vaseline, unsuccessful, however tick was able to be grasped and fully removed with Clau clamps Course - Vital Signs Last Recorded V/S: Last Vital Signs Temp 97.9 F 11/26/19 14:30 Pulse 91 11/26/19 14:30 Resp 18 11/26/19 14:30 BP 138/69 11/26/19 14:30 Pulse Ox 98 11/26/19 14:30 - Orders/Labs/Meds Orders: Active Orders 24 hr Category Date Time Status LYME (B.BURGDORFERI) PCR [REF] Stat Lab 11/26/19 14:58 Received Meds: Medications Discontinued Medications Generic Name Dose Route Start Last Admin Trade Name Jane PRN Reason Stop Dose Admin Doxycycline Hyclate 100 mg 11/26/19 14:43 11/26/19 15:02 Vibramycin PO 11/26/19 14:44 100 mg ONETIME ONE Administration - Re-Assessments/Exams Free Text/Narrative Re-Assessment/Exam: 11/26/19 15:58 Patient reevaluated and in no acute distress. Discussed plan of care including antibiotics. Vaseline in place to attempt removal of tick. 11/26/19 17:25 The tick did not come out with the Vaseline and therefore was removed with clamps. Removal successful. Patient given first dose of doxycycline and tolerated well. Departure - Departure Time of Disposition: 17:34 Disposition: Home, Self-Care 01 Condition: Good Clinical Impression: Cellulitis of leg, left, Early localized Lyme disease Tick bite of left lower leg Qualifiers: Encounter type: initial encounter Qualified Code(s): S80.862A - Insect bite ( nonvenomous), left lower leg, initial encounter - Discharge Information Prescriptions: Doxycycline [Vibramycin] 100 mg PO BID #20 cap Instructions: Tick Bite Information, Adult, [id number], Cellulitis, Adult, [id number], Lyme Disease Referrals: Sotero Peace MD [Primary Care Provider] - 2 Days Forms: ED Department Discharge Additional Instructions: The following information is given to patients seen in the emergency department who are being discharged to home. This information is to outline your options for follow-up care. We provide all patients seen in our emergency department with a follow-up referral. The need for follow-up, as well as the timing and circumstances, are variable depending upon the specifics of your emergency department visit. If you don't have a primary care physician on staff, we will provide you with a referral. We always advise you to contact your personal physician following an emergency department visit to inform them of the circumstance of the visit and for follow-up with them and/or the need for any referrals to a consulting specialist. The emergency department will also refer you to a specialist when appropriate. This referral assures that you have the opportunity for follow-up care with a specialist. All of these measure are taken in an effort to provide you with optimal care, which includes your follow-up. Under all circumstances we always encourage you to contact your private physician who remains a resource for coordinating your care. When calling for follow-up care, please make the office aware that this follow-up is from your recent emergency room visit. If for any reason you are refused follow-up, please contact the [facility] Emergency Department at and asked to speak to the emergency department charge nurse. [facility] [address] [place] [id number] [id number] Sepsis Event Note (ED) - Evaluation Sepsis Screening Result: No Definite Risk - Focused Exam Vital Signs: Vital Signs Temp Pulse Resp BP Pulse Ox 11/26/19 14:30 97.9 F 91 18 138/69 98 - My Orders Last 24 Hours: My Active Orders 11/26/19 14:58 LYME (B.BURGDORFERI) PCR [REF] Stat - Assessment/Plan Last 24 Hours: My Active Orders 11/26/19 14:58 LYME (B.BURGDORFERI) PCR [REF] Stat
[2019-11-26 18:05] VITALS: BP 135/78; PULSE 104
== END 2019-11-26 18:05 | disposition home or self-care (01) ==
LOC: MW.ED 14:12
DX: S80.862A Insect bite (nonvenomous), left lower leg, initial encounter (principal); L03.116 Cellulitis of left lower limb; A69.20 Lyme disease, unspecified; I10 Essential (primary) hypertension; I48.91 Unspecified atrial fibrillation; J44.9 Chronic obstructive pulmonary disease, unspecified; K21.9 Gastro-esophageal reflux disease without esophagitis; M19.90 Unspecified osteoarthritis, unspecified site; F41.9 Anxiety disorder, unspecified; E66.9 Obesity, unspecified; Z68.34 Body mass index [BMI] 34.0-34.9, adult; Z79.01 Long term (current) use of anticoagulants; Z79.82 Long term (current) use of aspirin; Z79.899 Other long term (current) drug therapy; W57.XXXA Bitten or stung by nonvenomous insect and other nonvenomous arthropods, initial encounter
CPT/HCPCS: 87476; 99283; A9270

== ENCOUNTER 2019-12-04 15:11 | Emergency (ER) | payer MEDICARE ==
[2019-12-04 15:22] VITALS: BP 109/71; PULSE 106
--- NOTE | 2019-12-04 15:31 | EDM.PDOC ---
ED HPI GENERAL MEDICAL PROBLEM - General Chief Complaint: Skin Complaint Stated Complaint: possibl Time Seen by Provider: 12/04/19 15:12 Source of Information: Reports: Patient History Limitations: Reports: No Limitations - History of Present Illness INITIAL COMMENTS - FREE TEXT/NARRATIVE: HISTORY AND PHYSICAL: History of present illness: Patient is a 79-year-old male who presents to the emergency room with concerns of having a tick embedded in his leg. Approximately a week ago he was seen in the emergency room as he had a tick that was embedded on the left leg that had significant erythema, swelling and discomfort associated with it. The tick was removed and he was placed on doxycycline. Today he noticed a small scratch on the right lower extremity wanted to be evaluated to make sure it was not another tick. The left leg has significantly improved and he states he is taking another 10-day course of doxycycline as this is been prescribed by his primary care provider. Patient denies any fever, chills, headache, change in vision, syncope or near syncope. Denies any chest pain, back pain, shortness of breath or cough. Denies any GI or symptoms. Patient has been eating and drinking appropriately. Review of systems: As per history of present illness and below otherwise all systems reviewed and negative. Past medical history: As per history of present illness and as reviewed below otherwise noncontributory. Surgical history: As per history of present illness and as reviewed below otherwise noncontributory. Social history: See social history for further information Family history: As per history of present illness and as reviewed below otherwise noncontributory. Physical exam: General: Well-developed and well-nourished 79-year-old male. Alert and oriented. Nontoxic-appearing and in no acute distress. Vital signs are stable and have been reviewed by me. HEENT: Atraumatic, normocephalic, pupils equal and reactive bilaterally, negativ e for conjunctival pallor or scleral icterus, mucous membranes moist, TMs normal bilaterally, throat clear, neck supple, nontender, trachea midline. No drooling or trismus noted. No meningeal signs. No hot potato voice noted. Lungs: Clear to auscultation, breath sounds equal bilaterally, chest nontender. Heart: S1S2, regular rate and rhythm without overt murmur Abdomen: Soft, nondistended, nontender. Negative for masses or hepatosplenomegaly. Negative for costovertebral tenderness. Pelvis: Stable nontender. Genitourinary: Deferred. Rectal: Deferred. Skin: Patient has a small pinpoint scab to the right lower extremity, no tick body/head noted. Left lower extremity has slight swelling without any erythema. Positive CMS and strong pedal pulses bilaterally. Otherwise remaining skin is intact, warm, dry. No lesions or rashes noted. Extremities: Atraumatic, moves all extremities per self without difficulty or deficits, negative for cords or calf pain. Neurovascular unremarkable. Neuro: Awake, alert, oriented. Cranial nerves II through XII unremarkable. Cerebellum unremarkable. Motor and sensory unremarkable throughout. Exam nonfocal. Notes: Reassured patient that the scab on the right lower extremity does not have a tick. He is currently on doxycycline and states he has 10 more days to complete. He does have a follow-up with his primary care provider. The nurse who took care of him on his first ER visit for the tick, states that the left lower extremity appears much improved. We reviewed signs and symptoms that would prompt him to return to the emergency room. Supportive care measures were reviewed and discussed. Voices understanding and is agreeable to plan of care. Denies any further questions or concerns at this time. Diagnostics: None Therapeutics: None Prescription: None Impression: Encounter for wound recheck Plan: 1. Keep the area clean and dry. Continue to monitor for signs of infection. Take your Doxcycline as directed. 2. Tylenol and/or ibuprofen as needed for pain management. 3. Please follow-up with your primary care provider in the next 1-2 days. Return to the ED as needed and as discussed. Definitive disposition and diagnosis as appropriate pending reevaluation and review of above. L Leg Pain Score (Numeric/FACES): 2 - Related Data Allergies Allergy/AdvReac Type Severity Reaction Status Date / Time No Known Allergies Allergy Verified 12/04/19 15:22 Home Meds: Home Meds Aspirin 81 mg PO DAILY 11/26/16 [History] Omeprazole 20 mg PO BID 01/01/18 [History] Sertraline HCl 25 mg PO DAILY 01/01/18 [History] Albuterol [Ventolin HFA] 2 puff INH Q4H PRN 03/09/18 [History] Doxycycline [Vibramycin] 100 mg PO BID #20 cap 11/26/19 [Rx] Diltiazem [Cardizem SR] 0 mg PO DAILY 12/04/19 [History] Past Medical History - Past Health History Medical/Surgical History: Denies Medical/Surgical History HEENT History: Reports: Cataract, Hard of Hearing, Other (See Below) Other HEENT History: has upper full denture and lower removal partial denture Cardiovascular History: Reports: Afib, Hypertension Respiratory History: Reports: COPD, Sleep Apnea, SOB Other Respiratory History: uses inhaler q4h, uses CPAP Gastrointestinal History: Reports: Diverticulosis, GERD, GI Bleed, Other (See Below) Other Gastrointestinal History: hx of Barretts esophagus, hx of bleeding from rectum while on Eliquis- received 12+ units of blood Genitourinary History: Reports: BPH Musculoskeletal History: Reports: Arthritis, Back Pain, Chronic, Fracture Other Musculoskeletal History: hx of fx right arm, right wrist, skull, and clavicle Neurological History: Reports: Concussion, Head Trauma, Other (See Below) Other Neuro History: hx of fx skull, hx of motion sickness Psychiatric History: Reports: Anxiety Endocrine/Metabolic History: Reports: Obesity/BMI 30+ Hematologic History: Reports: Anemia, Anticoagulation Therapy, Blood Transfusion(s) Immunologic History: Reports: None Oncologic (Cancer) History: Reports: Other (See Below) 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 Dermatologic History: Reports: None - Infectious Disease History Infectious Disease History: Reports: None - Past Surgical History Head Surgeries/Procedures: Reports: None HEENT Surgical History: Reports: Cataract Surgery Other HEENT Surgeries/Procedures: cataract surgery April 2017 Cardiovascular Surgical History: Reports: Vascular Surgery, Other (See Below) Other Cardiovascular Surgeries/Procedures: Lariat procedure- resulting in open chest procedure, had recent angioplasty with "stent" in leg GI Surgical History: Reports: Bariatric Procedure, Hernia, Inguinal, Other (See Below) Other GI Surgeries/Procedures: I&D of buttocks Male Surgical History: Reports: None Neurological Surgical History: Reports: None Musculoskeletal Surgical History: Reports: Hip Replacement, ORIF, Shoulder Surgery Other Musculoskeletal Surgeries/Procedures:: hx of left BERNARD x3 with other hip procedures, ORIF right wrist with tendon transfer Dermatological Surgical History: Reports: None Social & Family History - Family History Family Medical History: Noncontributory - Caffeine Use Caffeine Use: Reports: None - Living Situation & Occupation Living situation: Reports: Single Occupation: Retired ED ROS GENERAL - Review of Systems Review Of Systems: Comprehensive ROS is negative, except as noted in HPI. ED EXAM, SKIN/RASH Exam: See Below (See dictation) Course - Vital Signs Last Recorded V/S: Last Vital Signs Temp 97 F 12/04/19 15:14 Pulse 106 H 12/04/19 15:14 Resp 20 12/04/19 15:14 BP 109/71 12/04/19 15:14 Pulse Ox 95 12/04/19 15:14 Departure - Departure Time of Disposition: 15:30 Disposition: Home, Self-Care 01 Clinical Impression: Encounter for wound re-check - Discharge Information Instructions: Tick Bite Information, Adult, [id number] Referrals: Sotero Peace MD [Primary Care Provider] - Forms: ED Department Discharge Additional Instructions: The following information is given to patients seen in the emergency department who are being discharged to home. This information is to outline your options for follow-up care. We provide all patients seen in our emergency department with a follow-up referral. The need for follow-up, as well as the timing and circumstances, are variable depending upon the specifics of your emergency department visit. If you don't have a primary care physician on staff, we will provide you with a referral. We always advise you to contact your personal physician following an emergency department visit to inform them of the circumstance of the visit and for follow-up with them and/or the need for any referrals to a consulting specialist. The emergency department will also refer you to a specialist when appropriate. This referral assures that you have the opportunity for follow-up care with a specialist. All of these measure are taken in an effort to provide you with optimal care, which includes your follow-up. Under all circumstances we always encourage you to contact your private physician who remains a resource for coordinating your care. When calling for follow-up care, please make the office aware that this follow-up is from your recent emergency room visit. If for any reason you are refused follow-up, please contact the [facility] Emergency Department at and asked to speak to the emergency department charge nurse. [facility] [address] [place] [id number] [facility] [address] [place] [id number] 1. Keep the area clean and dry. Continue to monitor for signs of infection. Take your Doxcycline as directed. 2. Tylenol and/or ibuprofen as needed for pain management. 3. Please follow-up with your primary care provider in the next 1-2 days. Return to the ED as needed and as discussed. Sepsis Event Note (ED) - Evaluation Sepsis Screening Result: No Definite Risk - Focused Exam Vital Signs: Vital Signs Temp Pulse Resp BP Pulse Ox 12/04/19 15:14 97 F 106 H 20 109/71 95
== END 2019-12-04 15:39 | disposition home or self-care (01) ==
LOC: MW.ED 15:11
DX: Z48.00 Encounter for change or removal of nonsurgical wound dressing (principal); I10 Essential (primary) hypertension; I48.91 Unspecified atrial fibrillation; M19.90 Unspecified osteoarthritis, unspecified site; E66.9 Obesity, unspecified; Z68.28 Body mass index [BMI] 28.0-28.9, adult; F41.9 Anxiety disorder, unspecified; Z79.82 Long term (current) use of aspirin; Z79.899 Other long term (current) drug therapy
CPT/HCPCS: 99282

== ENCOUNTER 2021-06-08 13:44 | Emergency (ER) | payer MEDICARE ==
--- NOTE | 2021-06-08 14:13 | EDM.PDOC ---
ED HPI GENERAL MEDICAL PROBLEM - General Chief Complaint: Laceration Stated Complaint: R ARM CUT OPEN Time Seen by Provider: 06/08/21 13:47 Source of Information: Reports: Patient History Limitations: Reports: No Limitations - History of Present Illness INITIAL COMMENTS - FREE TEXT/NARRATIVE: HISTORY AND PHYSICAL: History of present illness: Patient is an 80-year-old male who presents to the emergency room with complaints of a skin tear to the right forearm. He states he tripped and fell landing against the wall with his right forearm resulting in the skin tear. He denies hitting his head or having any loss of consciousness. Denies any other extremity involvement. Patient denies any fever, chills, headache, change in vision, syncope or near syncope. Denies any chest pain, back pain, shortness of breath or cough. Denies any GI or symptoms. No recent travel or sick contacts. Unsure of his last Tdap. Review of systems: As per history of present illness and below otherwise all systems reviewed and negative. Past medical history: As per history of present illness and as reviewed below otherwise noncontributory. Surgical history: As per history of present illness and as reviewed below otherwise noncontributory. Social history: See social history for further information Family history: As per history of present illness and as reviewed below otherwise noncontributory. Physical exam: General: Well developed and well nourished. Alert and orientated x 3. Nontoxic in appearance and in no acute distress. Vital signs are stable and have been reviewed by me. Nursing notes were reviewed. HEENT: Atraumatic, normocephalic, pupils equal and reactive bilaterally, negative for conjunctival pallor or scleral icterus, mucous membranes moist, TMs normal bilaterally, throat clear, neck supple, nontender, trachea midline. No drooling or trismus noted. No meningeal signs. No hot potato voice noted. Lungs: Clear to auscultation bilaterally. No wheezes, rales, or rhonchi. Chest nontender. Normal work of breathing, no accessory muscles used. Heart: S1S2, regular rate and rhythm without overt murmur, gallops, or rubs. No JVD. No peripheral edema Abdomen: Soft, nondistended, nontender. Skin: Skin tear to ulnar aspect of right mid forearm. Remaining skin is intact, warm, dry. No lesions or rashes noted. Hematologic: No petechiae or purpra. Mucosa appropriate color and normal nail bed color and refill. Extremities: See skin for details, he moves all extremities per self without difficulty or deficits, strong radial pulses, negative for cords or calf pain. Neurovascular unremarkable. Neuro: Awake, alert, oriented. Cranial nerves II through XII unremarkable. Cerebellum unremarkable. Motor and sensory unremarkable throughout. Exam nonfocal. Psychiatric: Mood and affect are appropriate. Normal thought process. Answering questions appropriately. Please note that the patient was seen and evaluated during the 2019 SARS-CoV-2 novel coronavirus pandemic period. Community viral transmission is ongoing at time of this encounter and the emergency department is operating under pandemic response procedures. Medical Decision Making: Patient is an 80-year-old male who presents to the emergency room with complaints of a skin tear to the right forearm. Patient has full range of motion and no pain with palpation of the bony extremity. Declines x-ray. Chlorhexidine and wound wash was used to thoroughly cleanse and irrigate the site. Bacitracin nonstick dressing applied. Wound care education was given. Tetanus has been updated. I have talked with the patient about today's findings, in addition to providing specific details for plan of care. Reassessment at the time of disposition demonstrates that the patient is in no acute distress. The patient is stable for discharge, counseling was provided and we discussed in great detail signs and symptoms that would prompt them to return to the Emergency Department. Medication, follow up and supportive care measures were reviewed and discussed. Voices understanding and is agreeable to plan of care. Denies any further questions or concerns at this time. Diagnostics: None Therapeutics: Wound care, bacitracin nonstick dressing, tetanus Prescription: None Impression: Skin tear Plan: 1. You were evaluated today on an emergent basis. Your laceration was not suturable. Please keep the area clean and dry. Wash gently with soap and water twice daily. You can use a topical antibiotic ointment such as Neosporin or bacitracin for the first 48 hours. 2. You can alternate Tylenol and ibuprofen as needed for pain and fever management. 3. We encourage you to follow up with your primary care provider and/or recommended specialist in the next few days for re-evaluation and further care/management. 4. If your symptoms should worsen, new symptoms develop or any of the signs and symptoms we discussed should arise please return to the emergency room or call 911 (if needed). Definitive disposition and diagnosis as appropriate pending reevaluation and review of above. - Related Data Allergies Allergy/AdvReac Type Severity Reaction Status Date / Time No Known Allergies Allergy Verified 12/04/19 15:22 Home Meds: Home Meds Aspirin 81 mg PO DAILY 11/26/16 [History] Omeprazole 20 mg PO BID 01/01/18 [History] Sertraline HCl 25 mg PO DAILY 01/01/18 [History] Albuterol [Ventolin HFA] 2 puff INH Q4H PRN 03/09/18 [History] Doxycycline [Vibramycin] 100 mg PO BID #20 cap 11/26/19 [Rx] Diltiazem [Cardizem SR] 0 mg PO DAILY 12/04/19 [History] Past Medical History - Past Health History Medical/Surgical History: Denies Medical/Surgical History HEENT History: Reports: Cataract, Hard of Hearing, Other (See Below) Other HEENT History: has upper full denture and lower removal partial denture Cardiovascular History: Reports: Afib, Hypertension Respiratory History: Reports: COPD, Sleep Apnea, SOB Other Respiratory History: uses inhaler q4h, uses CPAP Gastrointestinal History: Reports: Diverticulosis, GERD, GI Bleed, Other (See Below) Other Gastrointestinal History: hx of Barretts esophagus, hx of bleeding from rectum while on Eliquis- received 12+ units of blood Genitourinary History: Reports: BPH Musculoskeletal History: Reports: Arthritis, Back Pain, Chronic, Fracture Other Musculoskeletal History: hx of fx right arm, right wrist, skull, and clavicle Neurological History: Reports: Concussion, Head Trauma, Other (See Below) Other Neuro History: hx of fx skull, hx of motion sickness Psychiatric History: Reports: Anxiety Endocrine/Metabolic History: Reports: Obesity/BMI 30+ Hematologic History: Reports: Anemia, Anticoagulation Therapy, Blood Trans fusion(s) Immunologic History: Reports: None Oncologic (Cancer) History: Reports: Other (See Below) 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 Dermatologic History: Reports: None - Infectious Disease History Infectious Disease History: Reports: None - Past Surgical History Head Surgeries/Procedures: Reports: None HEENT Surgical History: Reports: Cataract Surgery Other HEENT Surgeries/Procedures: cataract surgery April 2017 Cardiovascular Surgical History: Reports: Vascular Surgery, Other (See Below) Other Cardiovascular Surgeries/Procedures: Lariat procedure- resulting in open chest procedure, had recent angioplasty with "stent" in leg GI Surgical History: Reports: Bariatric Procedure, Hernia, Inguinal, Other (See Below) Other GI Surgeries/Procedures: I&D of buttocks Male Surgical History: Reports: None Neurological Surgical History: Reports: None Musculoskeletal Surgical History: Reports: Hip Replacement, ORIF, Shoulder Surgery Other Musculoskeletal Surgeries/Procedures:: hx of left BERNARD x3 with other hip procedures, ORIF right wrist with tendon transfer Dermatological Surgical History: Reports: None Social & Family History - Family History Family Medical History: No Pertinent Family History - Caffeine Use Caffeine Use: Reports: None - Living Situation & Occupation Living situation: Reports: Single Occupation: Retired ED ROS GENERAL - Review of Systems Review Of Systems: Comprehensive ROS is negative, except as noted in HPI. ED EXAM, SKIN/RASH Exam: See Below (See dictation) Course - Orders/Labs/Meds Orders: Active Orders 24 hr Category Date Time Status Communication Order [RC] STAT Care 06/08/21 14:17 Ordered Vaccine to be Administered/Admin Charge [RC] ASDIRECTED Care 06/08/21 14:18 Ordered Meds: Medications Discontinued Medications Generic Name Dose Route Start Last Admin Trade Name Freq PRN Reason Stop Dose Admin Bacitracin 1 dose 06/08/21 14:18 Bacitracin Oint 1 Gm U/D Packet TOP 06/08/21 14:19 ONETIME ONE Diphtheria/Tetanus/Acell Pertussis 0.5 ml 06/08/21 14:18 Diphtheria,Pertussis(Acell),Tetanus Vaccine 0.5 Ml Syringe IM 06/08/21 14:19 .ONCE ONE Departure - Departure Time of Disposition: 14:15 Disposition: Home, Self-Care 01 Clinical Impression: Skin tear of forearm without complication Qualifiers: Encounter type: initial encounter Laterality: right Qualified Code(s): S51.811A - Laceration without foreign body of right forearm, initial encounter - Discharge Information Instructions: Skin Tear, [id number] Forms: ED Department Discharge Additional Instructions: The following information is given to patients seen in the emergency department who are being discharged to home. This information is to outline your options for follow-up care. We provide all patients seen in our emergency department with a follow-up referral. The need for follow-up, as well as the timing and circumstances, are variable depending upon the specifics of your emergency department visit. If you don't have a primary care physician on staff, we will provide you with a referral. We always advise you to contact your personal physician following an emergency department visit to inform them of the circumstance of the visit and for follow-up with them and/or the need for any referrals to a consulting specialist. The emergency department will also refer you to a specialist when appropriate. This referral assures that you have the opportunity for follow-up care with a specialist. All of these measure are taken in an effort to provide you with optimal care, which includes your follow-up. Under all circumstances we always encourage you to contact your private physician who remains a resource for coordinating your care. When calling for follow-up care, please make the office aware that this follow-up is from your recent emergency room visit. If for any reason you are refused follow-up, please contact the Emergency Department at and asked to speak to the emergency department charge nurse. Primary Care [address] [place] [id number] [place] [address] Thank you for choosing the [facility] emergency department in [place] for your medical needs today. It was a pleasure caring for you. Today you were seen in the emergency department for skin tear 1. You were evaluated today on an emergent basis. Your laceration was not suturable. Please keep the area clean and dry. Wash gently with soap and water twice daily. You can use a topical antibiotic ointment such as Neosporin or bacitracin for the first 48 hours. 2. You can alternate Tylenol and ibuprofen as needed for pain and fever management. 3. We encourage you to follow up with your primary care provider and/or recommended specialist in the next few days for re-evaluation and further care/management. 4. If your symptoms should worsen, new symptoms develop or any of the signs and symptoms we discussed should arise please return to the emergency room or call 911 (if needed). - My Orders Last 24 Hours: My Active Orders 06/08/21 14:17 Communication Order [RC] STAT 06/08/21 14:18 Vaccine to be Administered/Admin Charge [RC] ASDIRECTED - Assessment/Plan Last 24 Hours: My Active Orders 06/08/21 14:17 Communication Order [RC] STAT 06/08/21 14:18 Vaccine to be Administered/Admin Charge [RC] ASDIRECTED
[2021-06-08] MEDS ORDERED: Bacitracin Oint 1 GM U/D Packet TOP ONE (14:18)
[2021-06-08] MEDS ORDERED: Diphtheria,Pertussis(Acell),Tetanus Vaccine 0.5 ML Syringe IM ONE (14:18)
== END 2021-06-08 16:00 | disposition home or self-care (01) ==
LOC: MW.ED 13:44
DX: S51.811A Laceration without foreign body of right forearm, initial encounter (principal); I10 Essential (primary) hypertension; I48.91 Unspecified atrial fibrillation; J44.9 Chronic obstructive pulmonary disease, unspecified; K21.9 Gastro-esophageal reflux disease without esophagitis; M19.90 Unspecified osteoarthritis, unspecified site; E66.9 Obesity, unspecified; Z68.24 Body mass index [BMI] 24.0-24.9, adult; Z23 Encounter for immunization; Z79.82 Long term (current) use of aspirin; Z79.899 Other long term (current) drug therapy; W01.0XXA Fall on same level from slipping, tripping and stumbling without subsequent striking against object, initial encounter
CPT/HCPCS: 90471; 90715; 99282

== ENCOUNTER 2021-08-07 22:16 | Emergency (ER) | payer MEDICARE ==
[2021-08-07] MEDS ORDERED: Aspirin 81 MG Tab.Chew PO ONE (22:21)
[2021-08-07 22:56] LABS: BLOOD UREA NITROGEN,BUN 18 mg/dL (7.0-18.0); CARBON DIOXIDE,CO2 24.6 mmol/L (21.0-32.0); CHLORIDE,CL 106 mmol/L (98-107); GLUCOSE RANDOM 101 mg/dL (74-106); LIPASE 103 U/L (73-393); SODIUM,NA 143 mmol/L (136-148)
[2021-08-08 01:46] VITALS: BP 144/75; PULSE 98
== END 2021-08-08 01:47 | disposition home or self-care (01) ==
LOC: MW.ED 22:16
DX: R07.9 Chest pain, unspecified (principal); I10 Essential (primary) hypertension; J44.9 Chronic obstructive pulmonary disease, unspecified; I48.91 Unspecified atrial fibrillation; E66.9 Obesity, unspecified; Z68.31 Body mass index [BMI] 31.0-31.9, adult; Z79.82 Long term (current) use of aspirin; Z79.01 Long term (current) use of anticoagulants; Z79.899 Other long term (current) drug therapy; Z20.822 Contact with and (suspected) exposure to COVID-19
CPT/HCPCS: 36415; 71045; 80053; 83690; 84484; 85025; 93005; 99285; A9270; U0002; 93010; 99284

== ENCOUNTER 2021-11-07 12:21 | Emergency (ER) | payer MEDICARE ==
[2021-11-07] MEDS ORDERED: Acetaminophen/oxyCODONE 325-5 MG Tab PO ONE (13:08)
[2021-11-07 15:17] VITALS: BP 126/79; PULSE 90
== END 2021-11-07 15:00 | disposition home or self-care (01) ==
LOC: MW.ED 12:21
DX: S22.41XA Multiple fractures of ribs, right side, initial encounter for closed fracture (principal); I48.91 Unspecified atrial fibrillation; J44.9 Chronic obstructive pulmonary disease, unspecified; I10 Essential (primary) hypertension; K21.9 Gastro-esophageal reflux disease without esophagitis; E66.9 Obesity, unspecified; Z79.899 Other long term (current) drug therapy; Z79.82 Long term (current) use of aspirin
CPT/HCPCS: 71250; 99284; A9270; 99283

== ENCOUNTER 2022-05-05 11:36 | Inpatient (IN) | payer MEDICARE ==
[2022-05-05] MEDS ORDERED: Sodium Chloride 0.9% 2.5 ML Syringe FLUSH PRN (12:07)
[2022-05-05] MEDS ORDERED: Sodium Chloride 0.9% 10 ML Syringe FLUSH PRN (12:07)
[2022-05-05] MEDS ORDERED: Diltiazem 25 MG/5 ML SDV IVPUSH ONE (12:09)
[2022-05-05 12:32] LABS: CARBON DIOXIDE,CO2 25.8 mmol/L (21.0-32.0); POTASSIUM,K 3.2 mmol/L (3.5-5.1)
[2022-05-05] MEDS ORDERED: Sodium Chloride 0.9% 1,000 ML IV ONE (13:51)
[2022-05-05] MEDS ORDERED: cefTRIAXone 1 GM in Sodium Chloride 0.9% 50 ML IV ONE (13:53)
[2022-05-05] MEDS ORDERED: Azithromycin 500 MG in Sodium Chloride 0.9% 250 ML IV ONE (13:53)
[2022-05-05] MEDS ORDERED: Piperacillin/Tazobactam 3.375 GM in Sodium Chloride 0.9% 50 ML IV ONE (14:53)
[2022-05-05] MEDS ORDERED: Ondansetron 4 MG/2 ML SDV IVPUSH PRN (17:25)
[2022-05-05] MEDS ORDERED: Polyethylene Glycol 3350 Powder 17 GM Packet PO PRN (17:25)
[2022-05-05] MEDS ORDERED: Albuterol/Ipratropium 3.0-0.5 MG/3 ML Neb Soln NEB PRN (17:25)
[2022-05-05] MEDS ORDERED: Enoxaparin 40 MG/0.4 ML Syringe SUBCUT SCH (18:15)
[2022-05-05] MEDS ORDERED: Azithromycin 500 MG in Sodium Chloride 0.9% 250 ML IV SCH (18:15)
[2022-05-05] MEDS: Lactated Ringers 1,000 ML IV SCH (19:36)
[2022-05-05] MEDS: Pantoprazole 40 MG in Sodium Chloride 0.9% 10 ML IVPUSH SCH (20:55)
[2022-05-06] MEDS: Lactated Ringers 1,000 ML IV SCH ×2 (06:05→20:42)
[2022-05-06 06:34] LABS: POTASSIUM,K 3.6 mmol/L (3.5-5.1)
[2022-05-06] MEDS: Piperacillin/Tazobactam 3.375 GM in Sodium Chloride 0.9% 50 ML IV SCH ×4 (07:22→18:05)
[2022-05-06] MEDS: Ferrous Sulfate 325 MG Tab PO SCH (08:30)
[2022-05-06] MEDS: Rosuvastatin 10 MG Tab PO SCH (09:22)
[2022-05-06] MEDS: Magnesium Oxide 400 MG Tab PO SCH (09:26)
[2022-05-06] MEDS: Aspirin 81 MG Tab.Chew PO SCH (09:28)
[2022-05-06] MEDS: Pantoprazole 40 MG in Sodium Chloride 0.9% 10 ML IVPUSH SCH ×2 (09:35→20:35)
[2022-05-06] MEDS ORDERED: Lactated Ringers 1,000 ML IV ONE (09:41)
[2022-05-06] MEDS: Diltiazem 120 MG Cap.CD PO SCH (09:42)
[2022-05-06] MEDS: Enoxaparin 30 MG/0.3 ML Syringe SUBCUT SCH (10:32)
[2022-05-06] MEDS: FLUTICASONE INH SCH (13:39)
[2022-05-06] MEDS: VILANTER INH SCH (13:39)
[2022-05-06] MEDS: UMECLIDIN INH SCH (13:39)
[2022-05-06] MEDS: Azithromycin 500 MG in Sodium Chloride 0.9% 250 ML IV SCH (14:48)
[2022-05-06] MEDS: Acetaminophen 325 MG Tab PO PRN (17:03)
[2022-05-06] MEDS: ALPRAZolam 0.5 MG Tab PO SCH (20:35)
[2022-05-07] MEDS: Piperacillin/Tazobactam 3.375 GM in Sodium Chloride 0.9% 50 ML IV SCH ×4 (00:04→17:56)
[2022-05-07] MEDS: Lactated Ringers 1,000 ML IV SCH ×2 (06:22→17:12)
[2022-05-07] MEDS: Pantoprazole 40 MG in Sodium Chloride 0.9% 10 ML IVPUSH SCH ×2 (06:32→17:16)
[2022-05-07 06:36] LABS: CARBON DIOXIDE,CO2 25.6 mmol/L (21.0-32.0); POTASSIUM,K 3.6 mmol/L (3.5-5.1)
[2022-05-07] MEDS ORDERED: Pantoprazole 40 MG in Sodium Chloride 0.9% 10 ML IVPUSH SCH (07:30)
[2022-05-07] MEDS: Ferrous Sulfate 325 MG Tab PO SCH (08:40)
[2022-05-07] MEDS: Aspirin 81 MG Tab.Chew PO SCH (08:40)
[2022-05-07] MEDS: Rosuvastatin 10 MG Tab PO SCH (08:40)
[2022-05-07] MEDS: Diltiazem 120 MG Cap.CD PO SCH (08:41)
[2022-05-07] MEDS: Magnesium Oxide 400 MG Tab PO SCH (08:41)
[2022-05-07] MEDS: FLUTICASONE INH SCH (08:42)
[2022-05-07] MEDS: VILANTER INH SCH (08:42)
[2022-05-07] MEDS: UMECLIDIN INH SCH (08:42)
[2022-05-07] MEDS: Enoxaparin 30 MG/0.3 ML Syringe SUBCUT SCH (08:50)
[2022-05-07] MEDS: Acetaminophen 325 MG Tab PO PRN ×2 (11:46→17:54)
[2022-05-07] MEDS: Azithromycin 500 MG in Sodium Chloride 0.9% 250 ML IV SCH (14:09)
[2022-05-07] MEDS: ALPRAZolam 0.5 MG Tab PO SCH (21:43)
[2022-05-08] MEDS: Piperacillin/Tazobactam 3.375 GM in Sodium Chloride 0.9% 50 ML IV SCH ×5 (01:19→23:55)
[2022-05-08 06:48] LABS: CARBON DIOXIDE,CO2 26.6 mmol/L (21.0-32.0); POTASSIUM,K 3.8 mmol/L (3.5-5.1)
[2022-05-08] MEDS: Rosuvastatin 10 MG Tab PO SCH (08:27)
[2022-05-08] MEDS: Aspirin 81 MG Tab.Chew PO SCH (08:27)
[2022-05-08] MEDS: Acetaminophen 325 MG Tab PO PRN ×2 (08:27→20:46)
[2022-05-08] MEDS: Ferrous Sulfate 325 MG Tab PO SCH (08:27)
[2022-05-08] MEDS: Pantoprazole 40 MG in Sodium Chloride 0.9% 10 ML IVPUSH SCH ×2 (08:28→17:49)
[2022-05-08] MEDS: Magnesium Oxide 400 MG Tab PO SCH (08:28)
[2022-05-08] MEDS: FLUTICASONE INH SCH (09:30)
[2022-05-08] MEDS: UMECLIDIN INH SCH (09:30)
[2022-05-08] MEDS: VILANTER INH SCH (09:30)
[2022-05-08] MEDS ORDERED: Melatonin 3 MG Tab PO PRN (09:37)
[2022-05-08] MEDS: Diltiazem 120 MG Cap.CD PO SCH (09:50)
[2022-05-08] MEDS: Enoxaparin 30 MG/0.3 ML Syringe SUBCUT SCH (09:50)
[2022-05-08] MEDS: Azithromycin 500 MG in Sodium Chloride 0.9% 250 ML IV SCH (13:08)
[2022-05-08] MEDS ORDERED: ALPRAZolam 0.5 MG Tab PO SCH (21:00)
[2022-05-09] MEDS: Pantoprazole 40 MG in Sodium Chloride 0.9% 10 ML IVPUSH SCH ×2 (06:35→17:45)
[2022-05-09] MEDS: Piperacillin/Tazobactam 3.375 GM in Sodium Chloride 0.9% 50 ML IV SCH ×3 (06:35→17:45)
[2022-05-09 07:59] LABS: POTASSIUM,K 3.8 mmol/L (3.5-5.1)
[2022-05-09] MEDS: Aspirin 81 MG Tab.Chew PO SCH (10:23)
[2022-05-09] MEDS: Rosuvastatin 10 MG Tab PO SCH (10:23)
[2022-05-09] MEDS: Ferrous Sulfate 325 MG Tab PO SCH (10:23)
[2022-05-09] MEDS: Enoxaparin 30 MG/0.3 ML Syringe SUBCUT SCH (10:24)
[2022-05-09] MEDS: Diltiazem 120 MG Cap.CD PO SCH (10:24)
[2022-05-09] MEDS: Magnesium Oxide 400 MG Tab PO SCH (10:24)
[2022-05-09] MEDS: UMECLIDIN INH SCH (10:25)
[2022-05-09] MEDS: FLUTICASONE INH SCH (10:25)
[2022-05-09] MEDS: VILANTER INH SCH (10:25)
[2022-05-09] MEDS ORDERED: Azithromycin 250 MG Tab PO SCH (14:00)
[2022-05-09] MEDS: Acetaminophen 325 MG Tab PO PRN (14:40)
[2022-05-09] MEDS ORDERED: QUEtiapine 25 MG Tab PO PRN (17:34)
[2022-05-10] MEDS: Piperacillin/Tazobactam 3.375 GM in Sodium Chloride 0.9% 50 ML IV SCH ×2 (00:18→05:49)
[2022-05-10 07:02] LABS: CARBON DIOXIDE,CO2 24.2 mmol/L (21.0-32.0); POTASSIUM,K 3.4 mmol/L (3.5-5.1)
[2022-05-10] MEDS: Pantoprazole 40 MG in Sodium Chloride 0.9% 10 ML IVPUSH SCH (07:05)
[2022-05-10] MEDS ORDERED: Potassium Chloride 20 MEQ Tab.ER PO ONE (08:46)
[2022-05-10 09:03] LABS: BILIRUBIN INDIRECT 0.3
[2022-05-10] MEDS: Magnesium Oxide 400 MG Tab PO SCH (09:53)
[2022-05-10] MEDS: Rosuvastatin 10 MG Tab PO SCH (09:53)
[2022-05-10] MEDS: Diltiazem 120 MG Cap.CD PO SCH (09:54)
[2022-05-10] MEDS: Aspirin 81 MG Tab.Chew PO SCH (09:55)
[2022-05-10] MEDS: Ferrous Sulfate 325 MG Tab PO SCH (09:55)
[2022-05-10] MEDS: Enoxaparin 30 MG/0.3 ML Syringe SUBCUT SCH (09:56)
[2022-05-10] MEDS ORDERED: Potassium Chloride 20 MEQ Tab.ER ONE (09:56)
[2022-05-10] MEDS: FLUTICASONE INH SCH (10:15)
[2022-05-10] MEDS: UMECLIDIN INH SCH (10:15)
[2022-05-10] MEDS: VILANTER INH SCH (10:15)
[2022-05-10 11:48] VITALS: BP 131/78; PULSE 95
== END 2022-05-10 12:42 | disposition home or self-care (01) | DRG 682 ==
LOC: MW.ED 11:36 → MW.MS 17:35
PROVIDERS: ADMIT Student in an Organized Health Care Education/Training Program; ATTEND Student in an Organized Health Care Education/Training Program
DX: N17.9 Acute kidney failure, unspecified (principal); J18.9 Pneumonia, unspecified organism; J44.0 Chronic obstructive pulmonary disease with (acute) lower respiratory infection; K80.50 Calculus of bile duct without cholangitis or cholecystitis without obstruction; G47.30 Sleep apnea, unspecified; Z66 Do not resuscitate; Z20.822 Contact with and (suspected) exposure to COVID-19; K29.70 Gastritis, unspecified, without bleeding; M19.90 Unspecified osteoarthritis, unspecified site; K83.8 Other specified diseases of biliary tract; K22.70 Barrett's esophagus without dysplasia; I10 Essential (primary) hypertension; G47.33 Obstructive sleep apnea (adult) (pediatric); I48.91 Unspecified atrial fibrillation; E86.0 Dehydration; N40.0 Benign prostatic hyperplasia without lower urinary tract symptoms; H91.90 Unspecified hearing loss, unspecified ear; K57.90 Diverticulosis of intestine, part unspecified, without perforation or abscess without bleeding; K21.9 Gastro-esophageal reflux disease without esophagitis; Z98.84 Bariatric surgery status; Z96.642 Presence of left artificial hip joint; Z79.82 Long term (current) use of aspirin; Z79.899 Other long term (current) drug therapy; Z79.01 Long term (current) use of anticoagulants
CPT/HCPCS: 36415; 71045; 74177; 80053; 81001; 83605; 83690; 83880; 84484; 85025; 85610; 86140; 86850; 86900; 86901; 87040 ×2; 93005; 96365; 96367; 96375; 99285; J0456; J0696; J2543; J3490 ×2; J7030; J7050; U0002; 74181; 74181-26; 80048; 80076; 97161-GP; A9270-GY; C9113; J1650; J7120

== ENCOUNTER 2022-11-08 11:12 | Emergency (ER) | payer MEDICARE ==
[2022-11-08] MEDS ORDERED: Sodium Chloride 0.9% 10 ML Syringe FLUSH PRN (11:48)
[2022-11-08] MEDS ORDERED: Sodium Chloride 0.9% 2.5 ML Syringe FLUSH PRN (11:48)
[2022-11-08 12:19] LABS: BASOPHILS PERCENT AUTO 0.6 % (0.0-1.5); EOSINOPHILS ABSOLUTE AUTO 0.1 K/uL (0.0-0.7); EOSINOPHILS PERCENT AUTO 1.2 % (0.0-7.0); HEMATOCRIT 35.7 % (38.0-50.0); HEMOGLOBIN 11.8 g/dL (13.0-17.0); LYMPHOCYTES ABSOLUTE AUTO 0.9 K/uL (0.6-2.4); LYMPHOCYTES PERCENT AUTO 13.6 % (16.0-40.0); MEAN CORPUSCULAR HEMOGLOBIN 32.4 pg (27.0-32.0); MEAN CORPUSCULAR HGB CONC 33.1 g/dL (31.0-37.0); MEAN CORPUSCULAR VOLUME 98.1 fL (80.0-98.0); MONOCYTES ABSOLUTE AUTO 0.6 K/uL (0.0-0.8); MONOCYTES PERCENT AUTO 8.8 % (0.0-15.0); NEUTROPHILS ABSOLUTE AUTO 5.2 K/uL (1.4-5.7); NEUTROPHILS PERCENT AUTO 75.8 % (48.0-80.0); PLATELET COUNT,PLT 283 K/uL (150-400); RED BLOOD CELL COUNT 3.64 M/uL (4.50-5.90); WHITE BLOOD CELL COUNT,WBC 6.85 K/uL (4.0-11.0)
[2022-11-08 12:55] LABS: A/G RATIO 0.7 (0.9-1.6); BILIRUBIN TOTAL 0.5 mg/dL (0.2-1.0); CALCIUM 8.8 mg/dL (8.5-10.1); CARBON DIOXIDE,CO2 28.4 mmol/L (21.0-32.0); CREATININE 1.1 mg/dL (0.8-1.3); EST CRCL DRUG DOSING (CG) 51.82 mL/min; POTASSIUM,K 3.5 mmol/L (3.5-5.1); PROTEIN TOTAL,TP 7.4 g/dL (6.4-8.2)
[2022-11-08 13:00] LABS: LACTIC ACID 1.5 mmol/L (0.4-2.0)
[2022-11-08] MEDS ORDERED: Iopamidol 755 MG/ML 500 ML Multipack Bottle IVPUSH STA (16:53)
[2022-11-08 17:32] VITALS: BP 137/80; PULSE 97
== END 2022-11-08 17:23 | disposition home or self-care (01) ==
LOC: MW.ED 11:12
DX: T81.49XA Infection following a procedure, other surgical site, initial encounter (principal); J44.9 Chronic obstructive pulmonary disease, unspecified; I48.91 Unspecified atrial fibrillation; E78.00 Pure hypercholesterolemia, unspecified; I10 Essential (primary) hypertension; Z79.82 Long term (current) use of aspirin; Z79.899 Other long term (current) drug therapy; Z87.891 Personal history of nicotine dependence
CPT/HCPCS: 36415; 74177; 80053; 83605; 85025; 87040; 87070; 87205; 99284; J3490; Q9967; 87077; 87186; 93010

== ENCOUNTER 2022-11-24 17:52 | Emergency (ER) | payer MEDICARE ==
[2022-11-24 18:31] LABS: BASOPHILS PERCENT AUTO 0.3 % (0.0-1.5); EOSINOPHILS PERCENT AUTO 0.6 % (0.0-7.0); HEMATOCRIT 35.1 % (38.0-50.0); HEMOGLOBIN 11.6 g/dL (13.0-17.0); LYMPHOCYTES ABSOLUTE AUTO 0.9 K/uL (0.6-2.4); LYMPHOCYTES PERCENT AUTO 12.3 % (16.0-40.0); MEAN CORPUSCULAR HEMOGLOBIN 31.3 pg (27.0-32.0); MEAN CORPUSCULAR VOLUME 94.6 fL (80.0-98.0); MONOCYTES ABSOLUTE AUTO 0.7 K/uL (0.0-0.8); MONOCYTES PERCENT AUTO 9.7 % (0.0-15.0); NEUTROPHILS ABSOLUTE AUTO 5.5 K/uL (1.4-5.7); NEUTROPHILS PERCENT AUTO 77.1 % (48.0-80.0); NRBC ABSOLUTE 0 K/uL; PLATELET COUNT,PLT 281 K/uL (150-400); RED BLOOD CELL COUNT 3.71 M/uL (4.50-5.90)
[2022-11-24 18:47] LABS: CALCIUM 9.1 mg/dL (8.5-10.1); CARBON DIOXIDE,CO2 28.4 mmol/L (21.0-32.0); CREATININE 1.4 mg/dL (0.8-1.3); EST CRCL DRUG DOSING (CG) 40.72 mL/min; POTASSIUM,K 3.8 mmol/L (3.5-5.1)
[2022-11-24 19:48] VITALS: BP 139/78; PULSE 77
== END 2022-11-24 19:46 | disposition home or self-care (01) ==
LOC: MW.ED 17:52
DX: Z48.01 Encounter for change or removal of surgical wound dressing (principal); I48.91 Unspecified atrial fibrillation; I10 Essential (primary) hypertension; K44.9 Diaphragmatic hernia without obstruction or gangrene; J44.9 Chronic obstructive pulmonary disease, unspecified; M19.90 Unspecified osteoarthritis, unspecified site; Z87.891 Personal history of nicotine dependence; Z79.899 Other long term (current) drug therapy; Z79.82 Long term (current) use of aspirin
CPT/HCPCS: 36415; 80048; 85025; 99282; 99284

== ENCOUNTER 2023-03-06 09:19 | Inpatient (IN) | payer MEDICARE, BC ==
[2023-03-06] MEDS ORDERED: Acetaminophen/oxyCODONE 325-5 MG Tab PO ONE (09:22)
[2023-03-06 10:35] LABS: BASOPHILS PERCENT AUTO 0.4 % (0.0-1.5); EOSINOPHILS ABSOLUTE AUTO 0.1 K/uL (0.0-0.7); EOSINOPHILS PERCENT AUTO 1.5 % (0.0-7.0); HEMATOCRIT 33.7 % (38.0-50.0); HEMOGLOBIN 11.4 g/dL (13.0-17.0); LYMPHOCYTES ABSOLUTE AUTO 1.2 K/uL (0.6-2.4); LYMPHOCYTES PERCENT AUTO 14.4 % (16.0-40.0); MEAN CORPUSCULAR HEMOGLOBIN 31.7 pg (27.0-32.0); MEAN CORPUSCULAR HGB CONC 33.8 g/dL (31.0-37.0); MEAN CORPUSCULAR VOLUME 93.6 fL (80.0-98.0); MONOCYTES ABSOLUTE AUTO 0.8 K/uL (0.0-0.8); MONOCYTES PERCENT AUTO 9.2 % (0.0-15.0); NEUTROPHILS ABSOLUTE AUTO 6.1 K/uL (1.4-5.7); NEUTROPHILS PERCENT AUTO 74.5 % (48.0-80.0); NRBC ABSOLUTE 0 K/uL; PLATELET COUNT,PLT 258 K/uL (150-400); WHITE BLOOD CELL COUNT,WBC 8.19 K/uL (4.0-11.0)
[2023-03-06 11:01] LABS: A/G RATIO 0.6 (0.9-1.6); ALBUMIN 2.5 g/dL (3.4-5.0); BILIRUBIN TOTAL 0.4 mg/dL (0.2-1.0); CALCIUM 8.3 mg/dL (8.5-10.1); CARBON DIOXIDE,CO2 21.6 mmol/L (21.0-32.0); CREATININE 0.9 mg/dL (0.8-1.3); EST CRCL DRUG DOSING (CG) 59.68 mL/min; POTASSIUM,K 3.6 mmol/L (3.5-5.1); PROTEIN TOTAL,TP 6.4 g/dL (6.4-8.2)
[2023-03-06] MEDS ORDERED: Sodium Chloride 0.9% 500 ML IV ONE (11:16)
[2023-03-06] MEDS ORDERED: Diltiazem 25 MG/5 ML SDV IVPUSH ONE (11:17)
[2023-03-06] MEDS ORDERED: Diltiazem IR 60 MG Tab PO ONE (11:18)
[2023-03-06] MEDS ORDERED: Iopamidol 755 MG/ML 500 ML Multipack Bottle IVPUSH STA (11:39)
[2023-03-06 12:15] LABS: APPEARANCE,URINE CLEAR; BILIRUBIN,URINE NEGATIVE (NEGATIVE); COLOR,URINE YELLOW; GLUCOSE,URINE NEGATIVE (NEGATIVE); KETONES,URINE NEGATIVE (NEGATIVE); LEUKOCYTE ESTERASE,URINE NEGATIVE (NEGATIVE); NITRITE,URINE NEGATIVE (NEGATIVE); OCCULT BLOOD,URINE NEGATIVE (NEGATIVE); PH,URINE 5.5 (5.0-8.0); PROTEIN,URINE NEGATIVE (NEGATIVE); UROBILINOGEN,URINE 0.2 EU/dL (<2.0)
[2023-03-06] MEDS ORDERED: Albuterol/Ipratropium 3.0-0.5 MG/3 ML Neb Soln NEB PRN (17:34)
[2023-03-06] MEDS: Ciprofloxacin 500 MG Tab PO SCH (20:18)
[2023-03-07] MEDS: Sodium Chloride 0.9% 1,000 ML IV SCH ×2 (04:21→23:19)
[2023-03-07] MEDS ORDERED: Acetaminophen 325 MG Tab PO PRN (04:32)
[2023-03-07] MEDS ORDERED: Ondansetron 4 MG/2 ML SDV IVPUSH PRN (07:04)
[2023-03-07 08:11] LABS: A/G RATIO 0.7 (0.9-1.6); ALBUMIN 2.3 g/dL (3.4-5.0); BILIRUBIN TOTAL 0.4 mg/dL (0.2-1.0); CALCIUM 7.9 mg/dL (8.5-10.1); CARBON DIOXIDE,CO2 20.4 mmol/L (21.0-32.0); CREATININE 0.8 mg/dL (0.8-1.3); EST CRCL DRUG DOSING (CG) 68.97 mL/min; POTASSIUM,K 3.6 mmol/L (3.5-5.1); PROTEIN TOTAL,TP 5.8 g/dL (6.4-8.2)
[2023-03-07 08:20] LABS: BASOPHILS PERCENT AUTO 0.5 % (0.0-1.5); EOSINOPHILS ABSOLUTE AUTO 0.2 K/uL (0.0-0.7); EOSINOPHILS PERCENT AUTO 3.6 % (0.0-7.0); HEMATOCRIT 32.8 % (38.0-50.0); HEMOGLOBIN 10.9 g/dL (13.0-17.0); MEAN CORPUSCULAR HEMOGLOBIN 31.2 pg (27.0-32.0); MEAN CORPUSCULAR HGB CONC 33.2 g/dL (31.0-37.0); MONOCYTES ABSOLUTE AUTO 0.6 K/uL (0.0-0.8); MONOCYTES PERCENT AUTO 9.5 % (0.0-15.0); NEUTROPHILS ABSOLUTE AUTO 4.7 K/uL (1.4-5.7); NEUTROPHILS PERCENT AUTO 71.4 % (48.0-80.0); NRBC ABSOLUTE 0 K/uL; PLATELET COUNT,PLT 259 K/uL (150-400); RED BLOOD CELL COUNT 3.49 M/uL (4.50-5.90); WHITE BLOOD CELL COUNT,WBC 6.62 K/uL (4.0-11.0)
[2023-03-07] MEDS ORDERED: Gadobenate Dimeglumine 529 MG/ML 20 ML SDV IVPUSH STA (08:35)
[2023-03-07] MEDS: Aspirin 81 MG Tab.Chew PO SCH (09:25)
[2023-03-07] MEDS: Ciprofloxacin 500 MG Tab PO SCH ×2 (09:25→20:15)
[2023-03-07] MEDS: Diltiazem 120 MG Cap.CD PO SCH (09:26)
[2023-03-07] MEDS: Acetaminophen/HYDROcodone 325-5 MG Tab PO PRN (20:25)
[2023-03-08] MEDS: Acetaminophen/HYDROcodone 325-5 MG Tab PO PRN ×3 (02:35→23:53)
[2023-03-08 06:01] LABS: BASOPHILS PERCENT AUTO 0.4 % (0.0-1.5); EOSINOPHILS ABSOLUTE AUTO 0.2 K/uL (0.0-0.7); EOSINOPHILS PERCENT AUTO 3.7 % (0.0-7.0); HEMATOCRIT 31.1 % (38.0-50.0); HEMOGLOBIN 10.4 g/dL (13.0-17.0); LYMPHOCYTES ABSOLUTE AUTO 1.3 K/uL (0.6-2.4); LYMPHOCYTES PERCENT AUTO 23.1 % (16.0-40.0); MEAN CORPUSCULAR HEMOGLOBIN 31.5 pg (27.0-32.0); MEAN CORPUSCULAR HGB CONC 33.4 g/dL (31.0-37.0); MEAN CORPUSCULAR VOLUME 94.2 fL (80.0-98.0); MONOCYTES ABSOLUTE AUTO 0.6 K/uL (0.0-0.8); MONOCYTES PERCENT AUTO 11.1 % (0.0-15.0); NEUTROPHILS ABSOLUTE AUTO 3.5 K/uL (1.4-5.7); NEUTROPHILS PERCENT AUTO 61.7 % (48.0-80.0); NRBC ABSOLUTE 0 K/uL; PLATELET COUNT,PLT 254 K/uL (150-400); WHITE BLOOD CELL COUNT,WBC 5.67 K/uL (4.0-11.0)
[2023-03-08 06:25] LABS: A/G RATIO 0.6 (0.9-1.6); ALBUMIN 2.1 g/dL (3.4-5.0); BILIRUBIN TOTAL 0.4 mg/dL (0.2-1.0); CALCIUM 7.7 mg/dL (8.5-10.1); CARBON DIOXIDE,CO2 21.9 mmol/L (21.0-32.0); CREATININE 0.8 mg/dL (0.8-1.3); EST CRCL DRUG DOSING (CG) 68.97 mL/min; POTASSIUM,K 3.8 mmol/L (3.5-5.1); PROTEIN TOTAL,TP 5.6 g/dL (6.4-8.2)
[2023-03-08] MEDS: Diltiazem 120 MG Cap.CD PO SCH (08:27)
[2023-03-08] MEDS: Ciprofloxacin 500 MG Tab PO SCH ×2 (08:28→21:03)
[2023-03-08] MEDS: Aspirin 81 MG Tab.Chew PO SCH (08:29)
[2023-03-09 06:01] LABS: BASOPHILS PERCENT AUTO 0.3 % (0.0-1.5); EOSINOPHILS ABSOLUTE AUTO 0.2 K/uL (0.0-0.7); EOSINOPHILS PERCENT AUTO 3.7 % (0.0-7.0); HEMATOCRIT 32.8 % (38.0-50.0); LYMPHOCYTES ABSOLUTE AUTO 1.1 K/uL (0.6-2.4); LYMPHOCYTES PERCENT AUTO 18.8 % (16.0-40.0); MEAN CORPUSCULAR HEMOGLOBIN 31.7 pg (27.0-32.0); MEAN CORPUSCULAR HGB CONC 33.5 g/dL (31.0-37.0); MEAN CORPUSCULAR VOLUME 94.5 fL (80.0-98.0); MONOCYTES ABSOLUTE AUTO 0.5 K/uL (0.0-0.8); NEUTROPHILS ABSOLUTE AUTO 4.1 K/uL (1.4-5.7); NEUTROPHILS PERCENT AUTO 68.2 % (48.0-80.0); NRBC ABSOLUTE 0 K/uL; PLATELET COUNT,PLT 259 K/uL (150-400); RED BLOOD CELL COUNT 3.47 M/uL (4.50-5.90); WHITE BLOOD CELL COUNT,WBC 6.01 K/uL (4.0-11.0)
[2023-03-09 06:39] LABS: A/G RATIO 0.6 (0.9-1.6); ALBUMIN 2.2 g/dL (3.4-5.0); BILIRUBIN TOTAL 0.4 mg/dL (0.2-1.0); CALCIUM 7.9 mg/dL (8.5-10.1); CARBON DIOXIDE,CO2 24.5 mmol/L (21.0-32.0); CREATININE 0.8 mg/dL (0.8-1.3); EST CRCL DRUG DOSING (CG) 68.97 mL/min; POTASSIUM,K 4.3 mmol/L (3.5-5.1); PROTEIN TOTAL,TP 6.1 g/dL (6.4-8.2)
[2023-03-09] MEDS: Diltiazem 120 MG Cap.CD PO SCH (10:08)
[2023-03-09] MEDS: Aspirin 81 MG Tab.Chew PO SCH (10:11)
[2023-03-09] MEDS: Ciprofloxacin 500 MG Tab PO SCH (10:11)
[2023-03-09 15:14] VITALS: BP 116/65; PULSE 93
== END 2023-03-09 15:15 | disposition home or self-care (01) | DRG 445 ==
LOC: MW.ED 09:19 → MW.MS 15:29 → OBSVTOIN 03-08 18:03
PROVIDERS: ADMIT Internal Medicine; ATTEND Internal Medicine
DX: K80.50 Calculus of bile duct without cholangitis or cholecystitis without obstruction (principal); I48.19 Other persistent atrial fibrillation; K83.8 Other specified diseases of biliary tract; J44.9 Chronic obstructive pulmonary disease, unspecified; Z20.822 Contact with and (suspected) exposure to COVID-19; W19.XXXA Unspecified fall, initial encounter; Z96.649 Presence of unspecified artificial hip joint; I10 Essential (primary) hypertension; Z79.82 Long term (current) use of aspirin; Z79.899 Other long term (current) drug therapy; Z87.891 Personal history of nicotine dependence; Z98.890 Other specified postprocedural states; Z93.2 Ileostomy status; Z98.84 Bariatric surgery status
CPT/HCPCS: 36415; 70450; 70450-26; 72125; 72125-26; 72128; 72128-26; 72131; 72131-26; 74177; 74177-26; 74183; 74183-26; 80053; 81003; 83605; 84484; 85025; 93005; 93010; 93970; 93970-26; 97161-GP; 97530-GP; 99285; A9270-GY; A9577; J2405; J7030; Q9967; U0002

== ENCOUNTER 2023-04-08 13:36 | Inpatient (IN) | payer MEDICARE, BC ==
[2023-04-08] MEDS ORDERED: Sodium Chloride 0.9% 10 ML Syringe FLUSH PRN (13:44)
[2023-04-08] MEDS ORDERED: Sodium Chloride 0.9% 2.5 ML Syringe FLUSH PRN (13:44)
[2023-04-08 13:54] LABS: BASE EXCESS VENOUS -4.8 (-2.0-3.0); BICARBONATE,VENOUS 21 mEq/L (23-28); PCO2 VENOUS 40 mmHG (41-51); PH,VENOUS 7.33 (7.31-7.41)
[2023-04-08 13:56] LABS: BASOPHILS ABSOLUTE AUTO 0.03 K/uL (0.00-0.20); BASOPHILS PERCENT AUTO 0.3 % (0.0-1.0); HEMATOCRIT 35.7 % (42.0-52.0); HEMOGLOBIN 12.3 g/dL (14.0-18.0); IMMATURE GRAN ABSOLUTE AUTO 0.04 K/uL (0.00-0.05); IMMATURE GRAN PERCENT AUTO 0.3 % (0.0-0.4); LYMPHOCYTES ABSOLUTE AUTO 0.81 K/uL (1.00-4.80); MEAN CORPUSCULAR HEMOGLOBIN 32.5 pg (28.0-32.0); MEAN CORPUSCULAR HGB CONC 34.5 g/dL (32.0-36.0); MEAN CORPUSCULAR VOLUME 94.2 fL (83.0-99.0); MEAN PLATELET VOLUME 9.6 fL (9.4-12.4); MONOCYTES ABSOLUTE AUTO 0.75 K/uL (0.00-0.80); MONOCYTES PERCENT AUTO 6.5 % (0.0-8.0); NEUTROPHILS ABSOLUTE AUTO 9.97 K/uL (1.80-7.70); NEUTROPHILS PERCENT AUTO 85.9 % (41.0-71.0); PLATELET COUNT,PLT 290 K/uL (150-400); RED BLOOD CELL COUNT 3.79 M/uL (4.52-5.90)
[2023-04-08 13:59] LABS: PO2 VENOUS < 30 mmHG
[2023-04-08 14:10] LABS: INR 1.17 (0.86-1.11); PTT,PARTIAL THROMBOPLSTIN TIME 23.5 SEC (23.9-30.7)
[2023-04-08 14:28] LABS: BILIRUBIN,URINE NEGATIVE (NEGATIVE); COLOR,URINE YELLOW; GLUCOSE,URINE NEGATIVE (NEGATIVE); KETONES,URINE NEGATIVE (NEGATIVE); LEUKOCYTE ESTERASE,URINE NEGATIVE (NEGATIVE); NITRITE,URINE NEGATIVE (NEGATIVE); OCCULT BLOOD,URINE MODERATE (NEGATIVE); PH,URINE 5.5 (5.0-8.0); PROTEIN,URINE TRACE mg/dL (NEGATIVE); UROBILINOGEN,URINE 0.2 EU/dL (<2.0)
[2023-04-08 14:29] LABS: APPEARANCE,URINE HAZY
[2023-04-08 14:37] LABS: A/G RATIO 0.7 (0.9-1.6); ALANINE AMINOTRANSFERASE,ALT 59 IU/L (14-63); ALBUMIN 3.5 g/dL (3.4-5.0); ALKALINE PHOSPHATASE 101 U/L (46-116); ASPARTATE AMNIOTRANSFERASE,AST 47 IU/L (15-37); BILIRUBIN TOTAL 0.4 mg/dL (0.2-1.0); BLOOD UREA NITROGEN,BUN 62 mg/dL (7.0-18.0); CALCIUM 9.8 mg/dL (8.5-10.1); CARBON DIOXIDE,CO2 21.4 mmol/L (21.0-32.0); CHLORIDE,CL 108 mmol/L (98-107); CREATINE KINASE,CK 595 U/L (26-308); CREATININE 1.4 mg/dL (0.8-1.3); EST CRCL DRUG DOSING (CG) 39.36 mL/min; GLUCOSE RANDOM 118 mg/dL (74-106); LIPASE 29 U/L (16-77); MAGNESIUM 2.2 mg/dL (1.8-2.4); POTASSIUM,K 4.9 mmol/L (3.5-5.1); PROTEIN TOTAL,TP 8.3 g/dL (6.4-8.2); SODIUM,NA 141 mmol/L (136-148)
[2023-04-08 14:38] LABS: ESTIMATED GFR 50 mL/min (>60); ETHANOL BLOOD MEDICAL < 3.0 mg/dL
[2023-04-08 14:38] LABS: AMPHETAMINES SCREEN, URINE NEGATIVE (CUTOFF=500); BARBITURATE SCREEN,URINE NEGATIVE (CUTOFF=200); BENZODIAZEPINES SCREEN,URINE PRESUMPTIVE POSITIVE (CUTOFF=150); BUPRENORPHINE SCREEN,URINE NEGATIVE (CUTOFF=10); METHADONE SCREEN, URINE NEGATIVE (CUTOFF=200); METHAMPHETAMINES SCREEN, URINE NEGATIVE (CUTOFF=500); OXYCODONE SCREEN,URINE NEGATIVE (CUT0FF=100); PCP SCREEN,URINE NEGATIVE (CUTOFF=25); PROPOXYPHENE SCREEN,URINE NEGATIVE (CUTOFF=300); THC SCREEN,URINE 20 NG/ML NEGATIVE (CUTOFF=50)
[2023-04-08 14:41] LABS: BACTERIA,URINE FEW (NEGATIVE); EPITHELIAL CELLS,URINE RARE (NONE-FEW); RBC,URINE 0-2 (0-2/HPF)
[2023-04-08 14:42] LABS: FINE GRANULAR CASTS,URINE FEW (NEGATIVE)
[2023-04-08 14:43] LABS: AMORPHOUS SEDIMENT,URINE MODERATE (NEGATIVE)
[2023-04-08] MEDS ORDERED: Iopamidol 755 Mg/ML 100 ML Bottle IVPUSH ONE (14:54)
[2023-04-08] MEDS ORDERED: cefTRIAXone 2 GM in Sodium Chloride 0.9% 50 ML IV ONE (15:05)
[2023-04-08] MEDS ORDERED: Sodium Chloride 0.9% 1,000 ML IV ONE (15:05)
[2023-04-08] MEDS ORDERED: Naloxone 0.4 MG/ML SDV IVPUSH PRN (15:55)
[2023-04-08] MEDS ORDERED: fentaNYL 50 MCG/ML SDV IVPUSH ONE (15:55)
[2023-04-08] MEDS ORDERED: Ondansetron 4 MG/2 ML SDV IVPUSH ONE (15:56)
[2023-04-08] MEDS ORDERED: fentaNYL 50 MCG/ML SDV IVPUSH PRN (19:05)
[2023-04-08] MEDS ORDERED: Acetaminophen 325 MG Tab PO PRN (19:08)
[2023-04-08] MEDS ORDERED: cefTRIAXone 1 GM in Sodium Chloride 0.9% 50 ML IV SCH (19:15)
[2023-04-09] MEDS ORDERED: Albuterol 8 GM Inhaler INH PRN (00:25)
[2023-04-09] MEDS: Azithromycin 500 MG in Sodium Chloride 0.9% 250 ML IV SCH ×2 (00:54→23:35)
[2023-04-09] MEDS: Acetaminophen/HYDROcodone 325-5 MG Tab PO PRN ×3 (01:12→19:53)
[2023-04-09] MEDS ORDERED: ALPRAZolam 0.5 MG Tab PO SCH (01:15)
[2023-04-09 06:45] LABS: BASOPHILS ABSOLUTE AUTO 0.04 K/uL (0.00-0.20); BASOPHILS PERCENT AUTO 0.6 % (0.0-1.0); EOSINOPHILS ABSOLUTE AUTO 0.06 K/uL (0.00-0.45); EOSINOPHILS PERCENT AUTO 0.9 % (0.0-6.0); HEMATOCRIT 31.4 % (42.0-52.0); HEMOGLOBIN 10.9 g/dL (14.0-18.0); IMMATURE GRAN ABSOLUTE AUTO 0.03 K/uL (0.00-0.05); IMMATURE GRAN PERCENT AUTO 0.4 % (0.0-0.4); LYMPHOCYTES ABSOLUTE AUTO 1.11 K/uL (1.00-4.80); LYMPHOCYTES PERCENT AUTO 15.7 % (24.0-44.0); MEAN CORPUSCULAR HEMOGLOBIN 32.7 pg (28.0-32.0); MEAN CORPUSCULAR HGB CONC 34.7 g/dL (32.0-36.0); MEAN CORPUSCULAR VOLUME 94.3 fL (83.0-99.0); MEAN PLATELET VOLUME 9.8 fL (9.4-12.4); MONOCYTES ABSOLUTE AUTO 0.53 K/uL (0.00-0.80); MONOCYTES PERCENT AUTO 7.5 % (0.0-8.0); NEUTROPHILS ABSOLUTE AUTO 5.28 K/uL (1.80-7.70); NEUTROPHILS PERCENT AUTO 74.9 % (41.0-71.0); PLATELET COUNT,PLT 238 K/uL (150-400); RED BLOOD CELL COUNT 3.33 M/uL (4.52-5.90); WHITE BLOOD CELL COUNT,WBC 7.05 K/uL (3.9-11.3)
[2023-04-09 07:02] LABS: CARBON DIOXIDE,CO2 21.4 mmol/L (21.0-32.0); EST CRCL DRUG DOSING (CG) 60.29 mL/min
[2023-04-09] MEDS: Omeprazole 20 MG Cap.CR PO SCH (07:28)
[2023-04-09] MEDS: Ferrous Sulfate 325 MG Tab PO SCH (08:10)
[2023-04-09] MEDS: Diltiazem 120 MG Cap.CD PO SCH (08:10)
[2023-04-09] MEDS: Sertraline 50 MG Tab PO SCH (08:11)
[2023-04-09] MEDS ORDERED: Enoxaparin 40 MG/0.4 ML Syringe SUBCUT SCH (10:00)
[2023-04-09] MEDS: cefTRIAXone 1 GM in Sodium Chloride 0.9% 50 ML IV SCH (15:21)
[2023-04-09] MEDS: Rosuvastatin 10 MG Tab PO SCH ×2 (19:55→22:17)
[2023-04-09] MEDS: Mirtazapine 15 MG Tab PO SCH ×2 (19:56→22:18)
[2023-04-10] MEDS: Acetaminophen/HYDROcodone 325-5 MG Tab PO PRN ×4 (01:12→20:55)
[2023-04-10 06:17] LABS: BASOPHILS ABSOLUTE AUTO 0.04 K/uL (0.00-0.20); BASOPHILS PERCENT AUTO 0.5 % (0.0-1.0); EOSINOPHILS ABSOLUTE AUTO 0.18 K/uL (0.00-0.45); EOSINOPHILS PERCENT AUTO 2.2 % (0.0-6.0); HEMATOCRIT 32.9 % (42.0-52.0); HEMOGLOBIN 11.1 g/dL (14.0-18.0); IMMATURE GRAN ABSOLUTE AUTO 0.03 K/uL (0.00-0.05); IMMATURE GRAN PERCENT AUTO 0.4 % (0.0-0.4); LYMPHOCYTES ABSOLUTE AUTO 1.16 K/uL (1.00-4.80); LYMPHOCYTES PERCENT AUTO 14.4 % (24.0-44.0); MEAN CORPUSCULAR HEMOGLOBIN 32.1 pg (28.0-32.0); MEAN CORPUSCULAR HGB CONC 33.7 g/dL (32.0-36.0); MEAN CORPUSCULAR VOLUME 95.1 fL (83.0-99.0); MEAN PLATELET VOLUME 9.6 fL (9.4-12.4); MONOCYTES ABSOLUTE AUTO 0.55 K/uL (0.00-0.80); MONOCYTES PERCENT AUTO 6.8 % (0.0-8.0); NEUTROPHILS ABSOLUTE AUTO 6.09 K/uL (1.80-7.70); NEUTROPHILS PERCENT AUTO 75.7 % (41.0-71.0); PLATELET COUNT,PLT 223 K/uL (150-400); RED BLOOD CELL COUNT 3.46 M/uL (4.52-5.90); WHITE BLOOD CELL COUNT,WBC 8.05 K/uL (3.9-11.3)
[2023-04-10] MEDS: Omeprazole 20 MG Cap.CR PO SCH ×2 (06:20→06:33)
[2023-04-10 06:51] LABS: A/G RATIO 0.6 (0.9-1.6); ALBUMIN 2.5 g/dL (3.4-5.0); BILIRUBIN TOTAL 0.3 mg/dL (0.2-1.0); CALCIUM 8.8 mg/dL (8.5-10.1); CARBON DIOXIDE,CO2 23.1 mmol/L (21.0-32.0); CREATININE 0.8 mg/dL (0.8-1.3); EST CRCL DRUG DOSING (CG) 75.36 mL/min; POTASSIUM,K 3.7 mmol/L (3.5-5.1); PROTEIN TOTAL,TP 6.7 g/dL (6.4-8.2)
[2023-04-10] MEDS: Enoxaparin 40 MG/0.4 ML Syringe SUBCUT SCH (08:19)
[2023-04-10] MEDS: Ferrous Sulfate 325 MG Tab PO SCH (08:19)
[2023-04-10] MEDS: Sertraline 50 MG Tab PO SCH (08:20)
[2023-04-10] MEDS: Diltiazem 120 MG Cap.CD PO SCH (08:20)
[2023-04-10] MEDS: cefTRIAXone 1 GM in Sodium Chloride 0.9% 50 ML IV SCH (16:36)
[2023-04-10] MEDS: Mirtazapine 15 MG Tab PO SCH (20:55)
[2023-04-10] MEDS: Rosuvastatin 10 MG Tab PO SCH (20:55)
[2023-04-10] MEDS: Azithromycin 500 MG in Sodium Chloride 0.9% 250 ML IV SCH (23:40)
[2023-04-11 06:11] LABS: BASOPHILS ABSOLUTE AUTO 0.05 K/uL (0.00-0.20); BASOPHILS PERCENT AUTO 0.7 % (0.0-1.0); EOSINOPHILS ABSOLUTE AUTO 0.17 K/uL (0.00-0.45); EOSINOPHILS PERCENT AUTO 2.5 % (0.0-6.0); HEMATOCRIT 32.4 % (42.0-52.0); IMMATURE GRAN ABSOLUTE AUTO 0.02 K/uL (0.00-0.05); IMMATURE GRAN PERCENT AUTO 0.3 % (0.0-0.4); LYMPHOCYTES ABSOLUTE AUTO 1.21 K/uL (1.00-4.80); LYMPHOCYTES PERCENT AUTO 18.1 % (24.0-44.0); MEAN CORPUSCULAR HEMOGLOBIN 32.2 pg (28.0-32.0); MEAN CORPUSCULAR VOLUME 94.7 fL (83.0-99.0); MEAN PLATELET VOLUME 9.6 fL (9.4-12.4); MONOCYTES ABSOLUTE AUTO 0.45 K/uL (0.00-0.80); MONOCYTES PERCENT AUTO 6.7 % (0.0-8.0); NEUTROPHILS ABSOLUTE AUTO 4.78 K/uL (1.80-7.70); NEUTROPHILS PERCENT AUTO 71.7 % (41.0-71.0); PLATELET COUNT,PLT 229 K/uL (150-400); RED BLOOD CELL COUNT 3.42 M/uL (4.52-5.90); WHITE BLOOD CELL COUNT,WBC 6.68 K/uL (3.9-11.3)
[2023-04-11 06:42] LABS: A/G RATIO 0.6 (0.9-1.6); ALBUMIN 2.4 g/dL (3.4-5.0); BILIRUBIN TOTAL 0.3 mg/dL (0.2-1.0); CALCIUM 8.7 mg/dL (8.5-10.1); CARBON DIOXIDE,CO2 22.8 mmol/L (21.0-32.0); CREATININE 0.8 mg/dL (0.8-1.3); EST CRCL DRUG DOSING (CG) 75.36 mL/min; POTASSIUM,K 3.7 mmol/L (3.5-5.1); PROTEIN TOTAL,TP 6.6 g/dL (6.4-8.2)
[2023-04-11] MEDS: Omeprazole 20 MG Cap.CR PO SCH (07:01)
[2023-04-11] MEDS: Enoxaparin 40 MG/0.4 ML Syringe SUBCUT SCH (07:02)
[2023-04-11] MEDS: Acetaminophen/HYDROcodone 325-5 MG Tab PO PRN ×2 (08:15→12:24)
[2023-04-11] MEDS: Sertraline 50 MG Tab PO SCH (09:18)
[2023-04-11] MEDS: Ferrous Sulfate 325 MG Tab PO SCH (09:20)
[2023-04-11] MEDS: Diltiazem 120 MG Cap.CD PO SCH (09:21)
[2023-04-11] MEDS: Naproxen 500 MG Tab PO SCH ×2 (09:54→19:59)
[2023-04-11] MEDS: Acetaminophen 500 MG Tab PO SCH (12:22)
[2023-04-11] MEDS: cefTRIAXone 1 GM in Sodium Chloride 0.9% 50 ML IV SCH (15:46)
[2023-04-11] MEDS: Rosuvastatin 10 MG Tab PO SCH (19:59)
[2023-04-11] MEDS: Mirtazapine 15 MG Tab PO SCH (19:59)
[2023-04-11] MEDS ORDERED: Naproxen 500 MG Tab PO SCH (21:00)
[2023-04-12] MEDS ORDERED: Azithromycin 500 MG Vial ONE (00:18)
[2023-04-12] MEDS: Acetaminophen/HYDROcodone 325-5 MG Tab PO PRN ×3 (00:25→09:59)
[2023-04-12] MEDS: Azithromycin 500 MG in Sodium Chloride 0.9% 250 ML IV SCH (00:30)
[2023-04-12] MEDS: Acetaminophen 500 MG Tab PO SCH ×2 (01:28→11:31)
[2023-04-12] MEDS: Omeprazole 20 MG Cap.CR PO SCH (07:07)
[2023-04-12 08:17] LABS: BASOPHILS ABSOLUTE AUTO 0.05 K/uL (0.00-0.20); BASOPHILS PERCENT AUTO 0.7 % (0.0-1.0); EOSINOPHILS ABSOLUTE AUTO 0.33 K/uL (0.00-0.45); EOSINOPHILS PERCENT AUTO 4.9 % (0.0-6.0); HEMATOCRIT 34.4 % (42.0-52.0); HEMOGLOBIN 11.8 g/dL (14.0-18.0); IMMATURE GRAN ABSOLUTE AUTO 0.02 K/uL (0.00-0.05); IMMATURE GRAN PERCENT AUTO 0.3 % (0.0-0.4); LYMPHOCYTES ABSOLUTE AUTO 0.94 K/uL (1.00-4.80); LYMPHOCYTES PERCENT AUTO 13.9 % (24.0-44.0); MEAN CORPUSCULAR HEMOGLOBIN 32.9 pg (28.0-32.0); MEAN CORPUSCULAR HGB CONC 34.3 g/dL (32.0-36.0); MEAN CORPUSCULAR VOLUME 95.8 fL (83.0-99.0); MEAN PLATELET VOLUME 9.7 fL (9.4-12.4); MONOCYTES ABSOLUTE AUTO 0.45 K/uL (0.00-0.80); MONOCYTES PERCENT AUTO 6.6 % (0.0-8.0); NEUTROPHILS ABSOLUTE AUTO 4.99 K/uL (1.80-7.70); NEUTROPHILS PERCENT AUTO 73.6 % (41.0-71.0); PLATELET COUNT,PLT 241 K/uL (150-400); RED BLOOD CELL COUNT 3.59 M/uL (4.52-5.90); WHITE BLOOD CELL COUNT,WBC 6.78 K/uL (3.9-11.3)
[2023-04-12 08:49] LABS: A/G RATIO 0.7 (0.9-1.6); ALBUMIN 2.7 g/dL (3.4-5.0); BILIRUBIN TOTAL 0.4 mg/dL (0.2-1.0); CALCIUM 8.9 mg/dL (8.5-10.1); CARBON DIOXIDE,CO2 23.7 mmol/L (21.0-32.0); CREATININE 0.9 mg/dL (0.8-1.3); EST CRCL DRUG DOSING (CG) 66.99 mL/min; POTASSIUM,K 4.3 mmol/L (3.5-5.1); PROTEIN TOTAL,TP 6.5 g/dL (6.4-8.2)
[2023-04-12] MEDS: Diltiazem 120 MG Cap.CD PO SCH (09:16)
[2023-04-12] MEDS: Enoxaparin 40 MG/0.4 ML Syringe SUBCUT SCH (09:16)
[2023-04-12] MEDS: Ferrous Sulfate 325 MG Tab PO SCH (09:17)
[2023-04-12] MEDS: Sertraline 50 MG Tab PO SCH (09:17)
[2023-04-12] MEDS: Naproxen 500 MG Tab PO SCH (09:17)
[2023-04-12 12:33] VITALS: BP 111/76; PULSE 96
[2023-04-12] MEDS ORDERED: Acetaminophen/HYDROcodone 325-5 MG Tab PO ONE ×2 (13:05)
== END 2023-04-12 13:54 | disposition home or self-care (01) | DRG 183 ==
LOC: MW.ED 13:36 → MW.MS 17:00 → OBSVTOIN 04-09 12:59
PROVIDERS: ADMIT Internal Medicine; ATTEND Internal Medicine
DX: S22.43XA Multiple fractures of ribs, bilateral, initial encounter for closed fracture (principal); S20.212A Contusion of left front wall of thorax, initial encounter; J18.9 Pneumonia, unspecified organism; S70.12XA Contusion of left thigh, initial encounter; N17.9 Acute kidney failure, unspecified; N30.00 Acute cystitis without hematuria; F15.921 Other stimulant use, unspecified with intoxication delirium; I48.91 Unspecified atrial fibrillation; I11.0 Hypertensive heart disease with heart failure; I50.9 Heart failure, unspecified; J44.9 Chronic obstructive pulmonary disease, unspecified; Z96.642 Presence of left artificial hip joint; W18.30XA Fall on same level, unspecified, initial encounter; Y92.002 Bathroom of unspecified non-institutional (private) residence as the place of occurrence of the external cause; R29.6 Repeated falls; R91.8 Other nonspecific abnormal finding of lung field; S00.12XA Contusion of left eyelid and periocular area, initial encounter; G47.00 Insomnia, unspecified; Z79.82 Long term (current) use of aspirin; Z79.899 Other long term (current) drug therapy; Z79.01 Long term (current) use of anticoagulants; Z98.84 Bariatric surgery status; W18.2XXA Fall in (into) shower or empty bathtub, initial encounter
CPT/HCPCS: 36415 ×2; 70450; 71260; 72125; 74177; 80048; 80053; 80305; 80307; 81001; 82550; 82803; 83690; 83735; 84484 ×2; 85025 ×2; 85610; 85730; 86850; 86900; 86901; 93005; 99285; A9270 ×6; G0390; J0456; J0696; J2405; J3010 ×2; J3490 ×2; J7030; J7050; Q9967; 93010; 97163-GP; 97530-GP; 99291; J1650

== ENCOUNTER 2023-10-20 07:51 | Inpatient (IN) | payer MEDICARE, BC ==
[2023-10-20 08:13] LABS: BASOPHILS ABSOLUTE AUTO 0.07 K/uL (0.00-0.20); BASOPHILS PERCENT AUTO 0.3 % (0.0-1.0); EOSINOPHILS ABSOLUTE AUTO 0.01 K/uL (0.00-0.45); HEMATOCRIT 34.6 % (42.0-52.0); IMMATURE GRAN ABSOLUTE AUTO 0.29 K/uL (0.00-0.05); LYMPHOCYTES ABSOLUTE AUTO 0.84 K/uL (1.00-4.80); MEAN CORPUSCULAR HEMOGLOBIN 29.6 pg (28.0-32.0); MEAN CORPUSCULAR HGB CONC 31.8 g/dL (32.0-36.0); MEAN PLATELET VOLUME 10.4 fL (9.4-12.4); MONOCYTES ABSOLUTE AUTO 1.03 K/uL (0.00-0.80); MONOCYTES PERCENT AUTO 3.7 % (0.0-8.0); NEUTROPHILS ABSOLUTE AUTO 25.75 K/uL (1.80-7.70); PLATELET COUNT,PLT 543 K/uL (150-400); RED BLOOD CELL COUNT 3.72 M/uL (4.52-5.90); WHITE BLOOD CELL COUNT,WBC 27.99 K/uL (3.9-11.3)
[2023-10-20] MEDS: Sodium Chloride 0.9% 1,000 ML IV ONE ×2 (08:15→08:43)
[2023-10-20 08:23] LABS: INR 1.18 (0.86-1.11); PTT,PARTIAL THROMBOPLSTIN TIME 27.1 SEC (23.9-30.7)
[2023-10-20 08:32] LABS: LACTIC ACID 2.5 mmol/L (0.4-2.0)
[2023-10-20] MEDS: fentaNYL 50 MCG/HR Transdermal Patch TRDERM STA (08:42)
[2023-10-20] MEDS: HYDROmorphone 1 MG/ML Syringe IVPUSH ONE (08:43)
[2023-10-20] MEDS: Ondansetron 4 MG/2 ML SDV IVPUSH ONE (08:44)
[2023-10-20 08:51] LABS: A/G RATIO 0.4 (0.9-1.6); ALANINE AMINOTRANSFERASE,ALT 128 IU/L (14-63); ALBUMIN 2.4 g/dL (3.4-5.0); ASPARTATE AMNIOTRANSFERASE,AST 118 IU/L (15-37); BILIRUBIN TOTAL 0.7 mg/dL (0.2-1.0); BLOOD UREA NITROGEN,BUN 60 mg/dL (7.0-18.0); CALCIUM 11.2 mg/dL (8.5-10.1); CARBON DIOXIDE,CO2 22.2 mmol/L (21.0-32.0); CHLORIDE,CL 107 mmol/L (98-107); CREATINE KINASE,CK 211 U/L (26-308); CREATININE 1.7 mg/dL (0.8-1.3); GLUCOSE RANDOM 151 mg/dL (74-106); LIPASE 24 U/L (16-77); MAGNESIUM 2.2 mg/dL (1.8-2.4); POTASSIUM,K 3.7 mmol/L (3.5-5.1); PROTEIN TOTAL,TP 8.2 g/dL (6.4-8.2); SODIUM,NA 144 mmol/L (136-148); TSH ULTRASENSITIVE 5.97 uIU/mL (0.36-3.74)
[2023-10-20 08:52] LABS: ALKALINE PHOSPHATASE 1351 U/L (46-116); ESTIMATED GFR 40 mL/min (>60); ETHANOL BLOOD MEDICAL < 3.0 mg/dL
[2023-10-20 09:14] LABS: T4 FREE 1.31 ng/dL (0.76-1.46)
[2023-10-20] MEDS: Diltiazem IR 60 MG Tab PO ONE (10:43)
[2023-10-20] MEDS: Sodium Chloride 0.9% 200 ML IV ONE (10:58)
[2023-10-20] MEDS: Sodium Chloride 0.9% 1,000 ML IV STA (10:59)
[2023-10-20] MEDS: Cefepime 2 GM in Sodium Chloride 0.9% 50 ML IV ONE (11:17)
[2023-10-20] MEDS ORDERED: Ketorolac 30 MG/ML SDV IM PRN ×2 (12:06→12:53)
[2023-10-20] MEDS ORDERED: Docusate Sodium 100 MG Cap PO PRN (12:06)
[2023-10-20] MEDS ORDERED: Naloxone 0.4 MG/ML SDV IVPUSH PRN (12:06)
[2023-10-20] MEDS ORDERED: Polyethylene Glycol 3350 Powder 17 GM Packet PO PRN (12:06)
[2023-10-20] MEDS ORDERED: Ondansetron 4 MG/2 ML SDV IVPUSH PRN (12:06)
[2023-10-20] MEDS ORDERED: Acetaminophen 325 MG Tab PO PRN (12:06)
[2023-10-20] MEDS ORDERED: Albuterol/Ipratropium 3.0-0.5 MG/3 ML Neb Soln NEB PRN (12:06)
[2023-10-20] MEDS ORDERED: Acetaminophen/HYDROcodone 325-5 MG Tab PO PRN (12:23)
[2023-10-20] MEDS: Morphine 2 MG/ML SYRINGE IVPUSH PRN (13:08)
[2023-10-20] MEDS: Enoxaparin 40 MG/0.4 ML Syringe SUBCUT SCH (13:11)
[2023-10-20 14:17] LABS: LACTIC ACID 1.3 mmol/L (0.4-2.0)
[2023-10-20] MEDS: Furosemide 20 MG Tab PO SCH (14:35)
[2023-10-20] MEDS: Pantoprazole 40 MG in Sodium Chloride 0.9% 10 ML IVPUSH SCH (14:39)
[2023-10-20] MEDS: Diltiazem 120 MG Cap.CD PO SCH (14:40)
[2023-10-20] MEDS: Lactated Ringers 1,000 ML IV ONE (15:10)
[2023-10-20] MEDS: Ferrous Sulfate 325 MG Tab PO SCH (15:11)
[2023-10-20] MEDS: Sertraline 50 MG Tab PO SCH (15:12)
[2023-10-20 15:17] LABS: APPEARANCE,URINE SLT CLOUDY; BILIRUBIN,URINE NEGATIVE (NEGATIVE); COLOR,URINE YELLOW; GLUCOSE,URINE NEGATIVE (NEGATIVE); KETONES,URINE NEGATIVE (NEGATIVE); LEUKOCYTE ESTERASE,URINE NEGATIVE (NEGATIVE); NITRITE,URINE NEGATIVE (NEGATIVE); OCCULT BLOOD,URINE NEGATIVE (NEGATIVE); PH,URINE 5.5 (5.0-8.0); PROTEIN,URINE 30 mg/dL (NEGATIVE); UROBILINOGEN,URINE 0.2 EU/dL (<2.0)
[2023-10-20 15:27] LABS: AMORPHOUS SEDIMENT,URINE FEW (NEGATIVE); BACTERIA,URINE FEW (NEGATIVE); EPITHELIAL CELLS,URINE RARE (NONE-FEW); HYALINE CASTS,URINE 0-1 (0-2/LPF); MUCUS,URINE OCCASIONAL (NONE-MOD); RBC,URINE 0-2 (0-2/HPF); WBC,URINE 0-1 (0-5/HPF)
[2023-10-20] MEDS: HYDROmorphone 0.5 MG/0.5 ML Syringe IVPUSH PRN (16:55)
[2023-10-20] MEDS ORDERED: Morphine 2 MG/ML SYRINGE IVPUSH PRN (17:19)
[2023-10-20] MEDS: Sodium Chloride 0.9% 1,000 ML IV SCH (19:08)
[2023-10-21] MEDS: Dextrose 5%-0.9% NaCl 1,000 ML IV SCH ×2 (02:22→10:43)
[2023-10-21 05:34] LABS: BASOPHILS ABSOLUTE AUTO 0.04 K/uL (0.00-0.20); BASOPHILS PERCENT AUTO 0.3 % (0.0-1.0); EOSINOPHILS ABSOLUTE AUTO 0.04 K/uL (0.00-0.45); EOSINOPHILS PERCENT AUTO 0.3 % (0.0-6.0); IMMATURE GRAN ABSOLUTE AUTO 0.08 K/uL (0.00-0.05); IMMATURE GRAN PERCENT AUTO 0.6 % (0.0-0.4); LYMPHOCYTES ABSOLUTE AUTO 0.54 K/uL (1.00-4.80); MEAN CORPUSCULAR HEMOGLOBIN 29.3 pg (28.0-32.0); MEAN CORPUSCULAR VOLUME 94.5 fL (83.0-99.0); MEAN PLATELET VOLUME 10.5 fL (9.4-12.4); MONOCYTES ABSOLUTE AUTO 0.49 K/uL (0.00-0.80); MONOCYTES PERCENT AUTO 3.6 % (0.0-8.0); NEUTROPHILS ABSOLUTE AUTO 12.27 K/uL (1.80-7.70); NEUTROPHILS PERCENT AUTO 91.2 % (41.0-71.0); PLATELET COUNT,PLT 382 K/uL (150-400); RED BLOOD CELL COUNT 3.07 M/uL (4.52-5.90); WHITE BLOOD CELL COUNT,WBC 13.46 K/uL (3.9-11.3)
[2023-10-21 06:13] LABS: A/G RATIO 0.4 (0.9-1.6); BILIRUBIN TOTAL 1.7 mg/dL (0.2-1.0); CALCIUM 9.8 mg/dL (8.5-10.1); CARBON DIOXIDE,CO2 22.2 mmol/L (21.0-32.0); CREATININE 1.8 mg/dL (0.8-1.3); EST CRCL DRUG DOSING (CG) 28.93 mL/min; POTASSIUM,K 3.6 mmol/L (3.5-5.1); PROTEIN TOTAL,TP 7.3 g/dL (6.4-8.2)
[2023-10-21] MEDS: cefTRIAXone 1 GM in Sodium Chloride 0.9% 50 ML IV SCH (10:30)
[2023-10-21] MEDS ORDERED: Acetaminophen 650 MG Supp RECTAL PRN (13:10)
[2023-10-21] MEDS ORDERED: Hyoscyamine 0.125 MG Tab.SL SL PRN (13:14)
[2023-10-21] MEDS ORDERED: Lidocaine 2% Viscous Solution 15 ML UD PO PRN (13:16)
[2023-10-21] MEDS ORDERED: LORazepam ORAL Concentrate 1MG/0.5ML U/D PO PRN (13:16)
[2023-10-21] MEDS ORDERED: Metoclopramide 10 MG/2 ML SDV IVPUSH PRN (13:16)
[2023-10-21] MEDS ORDERED: Magnesium Hydroxide 400 MG/5 ML Susp 30 ML Cup PO PRN (13:16)
[2023-10-21] MEDS ORDERED: Baclofen 10 MG Tab PO PRN (13:16)
[2023-10-21] MEDS ORDERED: Morphine 2 MG/ML SYRINGE IVPUSH PRN (13:21)
[2023-10-21] MEDS ORDERED: Scopalamine 1mg/3day Transdermal Patch TRDERM PRN (13:24)
[2023-10-21] MEDS: LORazepam ORAL Concentrate 1MG/0.5ML U/D PO PRN (15:33)
[2023-10-21] MEDS: HYDROmorphone 1 MG/ML Syringe IVPUSH PRN (15:37)
[2023-10-21 19:24] VITALS: BP 100/54; PULSE 126
[2023-10-21] MEDS: Morphine 4 MG/ML Syringe IV PRN (22:57)
== END 2023-10-22 06:45 | disposition expired | DRG 536 ==
LOC: MW.ED 07:51 → MW.MS 11:25
PROVIDERS: ADMIT Family Medicine; ATTEND Family Medicine
DX: S32.592A Other specified fracture of left pubis, initial encounter for closed fracture (principal); E46 Unspecified protein-calorie malnutrition; D09.9 Carcinoma in situ, unspecified; I10 Essential (primary) hypertension; I13.0 Hypertensive heart and chronic kidney disease with heart failure and stage 1 through stage 4 chronic kidney disease, or unspecified chronic kidney disease; Z79.2 Long term (current) use of antibiotics; C78.7 Secondary malignant neoplasm of liver and intrahepatic bile duct; Z75.8 Other problems related to medical facilities and other health care; C78.01 Secondary malignant neoplasm of right lung; C78.02 Secondary malignant neoplasm of left lung; N17.9 Acute kidney failure, unspecified; C15.9 Malignant neoplasm of esophagus, unspecified; R64 Cachexia; R62.7 Adult failure to thrive; E86.0 Dehydration; Z66 Do not resuscitate; Z51.5 Encounter for palliative care; I25.10 Atherosclerotic heart disease of native coronary artery without angina pectoris; N40.0 Benign prostatic hyperplasia without lower urinary tract symptoms; L98.429 Non-pressure chronic ulcer of back with unspecified severity; J44.9 Chronic obstructive pulmonary disease, unspecified; M19.90 Unspecified osteoarthritis, unspecified site; H91.90 Unspecified hearing loss, unspecified ear; G89.3 Neoplasm related pain (acute) (chronic); K22.70 Barrett's esophagus without dysplasia; K83.9 Disease of biliary tract, unspecified; N18.32 Chronic kidney disease, stage 3b; Z96.642 Presence of left artificial hip joint; M85.862 Other specified disorders of bone density and structure, left lower leg; W19.XXXA Unspecified fall, initial encounter; F41.9 Anxiety disorder, unspecified; I48.91 Unspecified atrial fibrillation; E16.2 Hypoglycemia, unspecified; I50.9 Heart failure, unspecified; F32.A Depression, unspecified; M54.9 Dorsalgia, unspecified; G89.29 Other chronic pain; E83.52 Hypercalcemia; R29.6 Repeated falls; Z93.3 Colostomy status; Z79.899 Other long term (current) drug therapy; Z98.890 Other specified postprocedural states; Z68.27 Body mass index [BMI] 27.0-27.9, adult; Z79.891 Long term (current) use of opiate analgesic
CPT/HCPCS: 36415; 70450; 71045; 71250; 72125; 72170; 74176; 80053; 80307; 82550; 83605; 83690; 83735; 84100; 84439; 84443; 84484; 85025; 85610; 85730; 87040 ×2; 96361; 96374; 96375; 99285; A9270 ×2; J0692; J1170; J2405; J3490; J7030 ×3; 81001; 82947; 93010; 99223; 99233; 99239; C9113; J0696; J1650; J2270; J7042; J7120